=== PATIENT | male | born 1950 | race African-American/Black ===

== ENCOUNTER 2016-03-28 09:42 | Inpatient (IN) | payer MEDICARE, OTHER ==
[~2016-03-28] VITALS: Ht 182.9 cm; Wt 112.2 kg
[~2016-03-28 09:42] MED LIST: 1-ME1LIQ PO; APIX5 PO; ASPI81TA45 PO; CART240C4 PO; CYCL-36 PO; LOSA50TA PO
[2016-03-28 09:52] VITALS: BP 201/108; PULSE 105; RESP 20; TEMP 97.4; O2SAT 96
[2016-03-28 10:11] VITALS: BP 201/108; PULSE 114; RESP 22; O2SAT 96
[2016-03-28] MEDS ORDERED: LABETALOL HCL 100 MG/20 ML VIAL IV PUSH ONE (10:15)
--- NOTE | 2016-03-28 10:24 | PD ---
HPI Chief Complaint: Pain: Acute or Chronic Time Seen by Provider: 10:09 Travel History International Travel<30 days: No Contact w/Intl Traveler<30days: No Traveled to known affect area: No History of Present Illness HPI This patient has long-standing history of decades of chronic back pain. However he does typically ambulate well. He does not require assistive device. He was walking yesterday without difficulty. He woke up this morning and had extreme leg weakness. He tried to get out of bed and fell. Did not injure himself in the fall. He does not have head or neck pain. The weakness was not caused by the fall but was present when he awoke. He could not get his legs to work so he called paramedics who brought him in. He does not have any sensory loss or paresthesia. He denies urinary incontinence or retention. He has had 2 out of a planned series of 3 epidural injections by a doctor up in [place] who he cannot remember the name of. He has never had back surgery. He does not have a neurosurgeon. Denies fever. He does not take any blood thinners. He used to take them for his A. fib but no longer does. Symptoms severity is severe. Duration is 2 hours. No alleviating factors. Accu-Chek is normal. He did not take his blood pressure medication today PFSH Past Medical History Arthritis: No Asthma: No Atrial Fibrillation: Yes Autoimmune Disease: No Heart Rhythm Problems: Yes (AFIB) Cancer: No Cardiac Catheterization: No Cardiovascular Problems: Yes (A-FIB) High Cholesterol: Yes Chest Pain: No Congestive Heart Failure: No COPD: No Cerebrovascular Accident: No Diabetes: No Diminished Hearing: No Diverticulitis: Yes Endocrine: No Gastrointestinal Disorders: No Genitourinary: Yes Headaches: No Hypertension: Yes Immune Disorder: No Implanted Vascular Access Dvce: No Musculoskeletal: Yes (MULT FXS RLE / SPINAL STENOSIS) Neurologic: No Psychiatric: No Reproductive: No Respiratory: Yes (PE) Immunizations Current: No Migraines: No Seizures: No Sleep Apnea: No Thyroid Disease: No Influenza Vaccination: Yes PNEUMOCCOCAL Vaccine (Year): 2 Past Surgical History Abdominal Surgery: Yes (Appendectomy) Appendectomy: Yes Cardiac Surgery: No Coronary Artery Bypass Graft: No Ear Surgery: No Endocrine Surgery: No Eye Surgery: No Genitourinary Surgery: No Gynecologic Surgery: No Oral Surgery: No Thoracic Surgery: No Other Surgery: Yes (WOUND VAC-FOR SKIN REGENERATION) Family History Family Myocardial Infarction: Yes Social History Alcohol Use: Yes (6 PACK PER DAY) Tobacco Use: No Substance Use: No Allergies-Medications (Allergen,Severity, Reaction): Coded Allergies: Lactose (Verified Allergy, Severe, LACTOSE INTOLERANT, 03/28/16) Reported Meds & Prescriptions Reported Meds & Active Scripts Active Reported Omeprazole 40 Mg Cap 40 Mg PO DAILY Aspirin 81 (Aspirin) 81 Mg Tabdr 81 Mg PO DAILY Review of Systems General / Constitutional: No: Fever Eyes: No: Visual changes HENT: No: Headaches Cardiovascular: No: Chest Pain or Discomfort Respiratory: No: Shortness of Breath Gastrointestinal: No: Abdominal Pain Genitourinary: No: Dysuria Musculoskeletal: Positive: Weakness Skin: No Rash Neurologic: Positive: Weakness Psychiatric: Positive: Anxiety, No: Depression Endocrine: No: Polydipsia Hematologic/Lymphatic: No: Easy Bruising Physical Exam Narrative GENERAL: Well-nourished, well-developed patient with extreme anxiety and frustration over his severe leg weakness. SKIN: Warm and dry. HEAD: Atraumatic. Normocephalic. EYES: Pupils equal and round. No scleral icterus. No injection or drainage. ENT: No nasal bleeding or discharge. Mucous membranes pink and moist. NECK: Trachea midline. No JVD. CARDIOVASCULAR: Regular rate and rhythm. No murmur appreciated. RESPIRATORY: No accessory muscle use. Clear to auscultation. Breath sounds equal bilaterally. GASTROINTESTINAL: Abdomen soft, non-tender, nondistended. Hepatic and splenic margins not palpable. MUSCULOSKELETAL: No obvious deformities. No clubbing. No cyanosis. Has mild symmetric lower extremity edema which is chronic. No midline tenderness of the back. NEUROLOGICAL: Awake and alert. No obvious cranial nerve deficits. Motor exam reveals good strength of upper extremities. He can slowly wiggle his toes of both feet but very limited motor movements of the lower extremities. He cannot raise his legs off the bed. He cannot plantarflex or dorsiflex his feet. Normal speech. Sensation is intact to sharp and light touch throughout the lower extremities and is also normal in the sacral region PSYCHIATRIC: Very frustrated and anxious mood and affect; insight and judgment normal. Data Data Last Documented VS Vital Signs Date Time Temp Pulse Resp B/P Pulse Ox O2 Delivery O2 Flow Rate FiO2 03/28/16 12:41 82 12 176/85 96 Room Air 03/28/16 09:52 97.4 Orders Mri L Spine W/O Contrast (03/28/16 ) Mri T Spine W/O Contrast (03/28/16 ) Mri C Spine W/O Contrast (03/28/16 ) Iv Access Insert/Monitor (03/28/16 10:09) Complete Blood Count With Diff (03/28/16 10:09) Basic Metabolic Panel (Bmp) (03/28/16 10:09) Prothrombin Time / Inr (Pt) (03/28/16 10:09) Act Partial Throm Time (Ptt) (03/28/16 10:09) Labetalol Inj (Trandate Inj) (03/28/16 10:15) Lorazepam Inj (Ativan Inj) (03/28/16 11:15) Consult Neurosurgery (03/28/16 ) Pantoprazole (Protonix) (03/29/16 09:00) Enalaprilat Inj (Vasotec Inj) (03/28/16 15:15) Labs Laboratory Tests Test 03/28/16 10:20 White Blood Count 6.2 TH/MM3 Red Blood Count 4.83 MIL/MM3 Hemoglobin 15.8 GM/DL Hematocrit 45.1 % Mean Corpuscular Volume 93.4 FL Mean Corpuscular Hemoglobin 32.6 PG Mean Corpuscular Hemoglobin 34.9 % Concent Red Cell Distribution Width 13.2 % Platelet Count 176 TH/MM3 Mean Platelet Volume 7.8 FL Neutrophils (%) (Auto) 54.8 % Lymphocytes (%) (Auto) 34.7 % Monocytes (%) (Auto) 8.7 % Eosinophils (%) (Auto) 1.2 % Basophils (%) (Auto) 0.6 % Neutrophils # (Auto) 3.4 TH/MM3 Lymphocytes # (Auto) 2.1 TH/MM3 Monocytes # (Auto) 0.5 TH/MM3 Eosinophils # (Auto) 0.1 TH/MM3 Basophils # (Auto) 0.0 TH/MM3 CBC Comment DIFF FINAL Differential Comment Prothrombin Time 10.6 SEC Prothromb Time International 1.0 RATIO Ratio Activated Partial 24.8 SEC Thromboplast Time Sodium Level 139 MEQ/L Potassium Level 4.4 MEQ/L Chloride Level 106 MEQ/L Carbon Dioxide Level 26.1 MEQ/L Anion Gap 7 MEQ/L Blood Urea Nitrogen 19 MG/DL Creatinine 0.91 MG/DL Estimat Glomerular Filtration 101 ML/MIN Rate Random Glucose 88 MG/DL Calcium Level 8.9 MG/DL MDM Medical Decision Making Medical Screen Exam Complete: Yes Emergency Medical Condition: Yes Medical Record Reviewed: Yes Differential Diagnosis Disc herniation, spinal stenosis, cauda equina syndrome Narrative Course I have reviewed the patient's electronic medical record. The last entry was a lower extremity segmental Doppler done May 2015 which was normal. Reviewed his most recent history and physical. IV placed I gave him 10 mg IV labetalol for accelerated hypertension of 201/108 This patient arrives critically ill with essentially an acute bilateral leg paralysis. Does not seem consistent with stroke or Guillain-Andrade I'm not overly suspicious of an infectious cause without fever or physical findings I've ordered stat MRI of his spinal cord look for compression, mainly concerned thoracic and lumbar cord CBC is normal Metabolic profile is normal Coagulation studies are normal Extended cardiac monitoring reveals sinus rhythm between 100-110 MRI of the cervical cord shows some degenerative change without major cord compression MRI of thoracic cord shows a few degenerative change areas without major compression MRI of lumbar cord shows an area at L4/L5 with complete obliteration of the thecal sac and severe spinal stenosis I gave him 2 mg IV Ativan to sedate him for the MRI I reviewed the case in detail with neurosurgeon on-call. She recommended admission to the hospitalist service and she will be a documentum consultant and determine whether he would benefit from decompression surgery Patient is agreeable Critical Care Narrative Aggregate critical care time was 36 minutes. Time to perform other separately billable procedures was not included in the critical care time. My time did not include minutes spent treating any other patients simultaneously or on activities that did not directly contribute to the patient's treatment. The services I provided to this patient were to treat and/or prevent clinically significant deterioration that could result in: Permanent leg paralysis, cord compression I provided critical care services requiring my management, as noted below: Chart data review, documentation time, medication orders and management, vital sign assessments/reviewing monitor data, ordering and reviewing lab tests, ordering and interpreting/reviewing x-rays and diagnostic studies, care of the patient and discussion of the patient with the admitting physicians. Diagnosis Primary Impression: Paralysis of both lower limbs Additional Impression: Spinal stenosis at L4-L5 level Admitting Information Admitting Physician Requests: Admit Joesph Nguyen MD Mar 28, 2016 10:24
[2016-03-28 10:34] VITALS: BP 143/75; PULSE 105; RESP 22; O2SAT 97
[2016-03-28 10:40] LABS: AUTOMATED NEUTROPHIL # 3.4 TH/MM3 (1.8-7.7); BASOPHIL % 0.6 % (0.0-2.0); EOSINOPHIL # 0.1 TH/MM3 (0-0.4); EOSINOPHIL % 1.2 % (0.0-4.0); HEMATOCRIT 45.1 % (39.0-51.0); HEMO FLAGS DIFF FINAL; LYMPH % 34.7 % (9.0-44.0); LYMPHOCYTE # 2.1 TH/MM3 (1.0-4.8); MEAN CELL VOLUME 93.4 FL (80.0-100.0); MEAN CORPUSCULAR HEMOGLOBIN 32.6 PG (27.0-34.0); MEAN CORPUSCULAR HGB CONC 34.9 % (32.0-36.0); MONO % 8.7 % (0.0-8.0); NEUT % 54.8 % (16.0-70.0); PLATELET COUNT 176 TH/MM3 (150-450); RED BLOOD COUNT 4.83 MIL/MM3 (4.50-5.90); RED CELL DISTRIBUTION WIDTH 13.2 % (11.6-17.2); WHITE BLOOD COUNT 6.2 TH/MM3 (4.0-11.0)
[2016-03-28 10:48] LABS: APTT (PATIENT) 24.8 SEC (24.3-30.1); PROTHROMBIN TIME - PATIENT 10.6 SEC (9.8-11.6)
[2016-03-28 10:55] LABS: BICARBONATE 26.1 MEQ/L (21.0-32.0); POTASSIUM 4.4 MEQ/L (3.5-5.1)
[2016-03-28] MEDS ORDERED: LORazepam 2 MG/ML VIAL IV PUSH ONE (11:15)
--- NOTE | 2016-03-28 12:23 | RADRPT ---
EXAM DATE/TIME: 03/28/2016 11:16 [facility] COMPARISON: No previous studies available for comparison. INDICATIONS : Myelopathy. Mid-back pain. No known injury. MEDICAL HISTORY : Hypertension. SURGICAL HISTORY : Appendectomy. Nerve block two weeks ago. Right leg. ENCOUNTER: Subsequent ACUITY: 1 day PAIN SCORE: 5/10 LOCATION: Mid-back. TECHNIQUE: Multiplanar multisequence MRI of the thoracic spine was performed. FINDINGS: The sagittal T1, T2 and inversion recovery images show mild multi-level degenerative disc disease wit h multi-level marginal spurring predominantly in the mid and lower vertebral levels. Vertebral body heights are maintained without evidence of fracture or listhesis. There is a posterior component of the distant spurs from T6-7 through T10-11 which encroach on the anterior epidural space but do not a ppear to result in significant stenosis. Spinal canal is otherwise widely patent. Cord signal is no rmal throughout. Detailed axial images as follows: T1-T2: Normal. T2-T3: The thecal sac has a normal diameter. No evidence of disc bulge or protrusion. T3-T4: The thecal sac has a normal diameter. No evidence of disc bulge or protrusion. T4-T5: The thecal sac has a normal diameter. No evidence of disc bulge or protrusion. T5-T6: The thecal sac has a normal diameter. No evidence of disc bulge or protrusion. T6-T7: There is distant spur which encroaches on the anterior epidural space but the spinal canal is patent. T7-T8: Small disc but the spinal canal is patent. T8-T9: The thecal sac has a normal diameter. No evidence of disc bulge or protrusion. T9-T10: Small disc but the spinal canal and neural foramina are patent. T10-T11: Disc/spur. Spinal canal is patent. T11-T12: The thecal sac has a normal diameter. No evidence of disc bulge or protrusion. T12-L1: The thecal sac has a normal diameter. No evidence of disc bulge or protrusion. CONCLUSION: 1. Mild multi-level degenerative disc disease with predominantly anteriorly directed spurs in the mi d and lower dorsal levels. 2. There are posterior components from T6-7 through T7-8 and T9-10 through T10-11 which encroach on the anterior epidural space but does not result in significant stenosis. Spinal canal is adequate th roughout and cord signal is normal. Dale Simpson MD on March 28, 2016 at 11:50 Board Certified Radiologist. This report was verified electronically.
--- NOTE | 2016-03-28 12:29 | RADRPT ---
EXAM DATE/TIME: 03/28/2016 11:16 [facility] COMPARISON: No previous studies available for comparison. INDICATIONS: Myelopathy. Nerve block two weeks ago. MEDICAL HISTORY: Hypertension. SURGICAL HISTORY: Appendectomy. Right leg. ENCOUNTER: Subsequent ACUITY: 1 day PAIN SCORE: 5/10 LOCATION: Mid-back. TECHNIQUE: Multiplanar, multisequence MRI examination of the cervical spine was performed. FINDINGS: By MRI the marrow signal in the cervical vertebrae are normal. There is some very subtle increased s ignal in the cord at C3-4 and C5-6 associated with disc protrusions. C2-C3: The thecal sac has a normal configuration. There is no evidence of disc herniation or spinal canal s tenosis. The neural foramina are patent bilaterally. C3-C4: There is a central to slightly right-sided disc protrusion that is touching the cord. There is subtl e increased signal in the cord at this level. C4-C5: The thecal sac has a normal configuration. There is no evidence of disc herniation or spinal canal s tenosis. The neural foramina are patent bilaterally. C5-C6: Very mild uncinate ridging is present. There is some central bulging evident. The thecal sac is not e effaced. There is moderate right neural foramina encroachment. There is very subtle increased sig nal in the cord at this level. C6-C7: The thecal sac has a normal configuration. There is no evidence of disc herniation or spinal canal s tenosis. The neural foramina are patent bilaterally. C7-T1: The thecal sac has a normal configuration. There is no evidence of disc herniation or spinal canal s tenosis. The neural foramina are patent bilaterally. CONCLUSION: 1. Degenerative changes in the cervical spine. There is moderate disc protrusion at C3-C4 with subt le increased signal in the cord. There is a slightly smaller disc protrusion at C5-C6 again with mary carmen e subtle increased signal in the cord. 2. Controlled flexion extension films would be of benefit to ensure there is not ligamentous instabi lity. Jason Santiago MD FACR on March 28, 2016 at 12:08 Board Certified Radiologist. This report was verified electronically.
--- NOTE | 2016-03-28 12:36 | RADRPT ---
EXAM DATE/TIME: 03/28/2016 11:16 [facility] COMPARISON: No previous studies available for comparison. INDICATIONS: Myelopathy. Nerve block two weeks ago. MEDICAL HISTORY: Hypertension. SURGICAL HISTORY: Appendectomy. Right leg. ENCOUNTER: Subsequent ACUITY: 1 day PAIN SCORE: 0/10 LOCATION: Mid-back. TECHNIQUE: Multiplanar multisequence MRI of the lumbar spine was performed without contrast. FINDINGS: VERTEBRAE: By MRI the marrow signal in the lumbar vertebrae are homogeneous and normal. Conus is at L1. Patient has a congenitally small spinal canal. T12-L1: The thecal sac has a normal diameter. No evidence of disc bulge or protrusion. The neural foramina are patent bilaterally. L1-L2: There is mild disc bulging at L1-2 causing flattening of the anterior thecal sac with minimal left-si ded neural foramina encroachment with disc material. L2-L3: Minimal interspace ridging is present flattening the anterior thecal sac with bilateral neural forami na encroachment. Spinal stenosis is moderate. L3-L4: Congenitally small canal is present without significant stenosis. L4-L5: There is generalized disc bulging at L4-L5. Thecal sac has all but obliterated from disc bulging and ligamentous hypertrophy. There is bilateral neural foramina encroachment. L5-S1: Central disc bulging is evident. The neural foramina are adequate. Mild degenerative changes are pr esent in facet. SI joints are normal. 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 Jason Santiago MD FACR on March 28, 2016 at 12:10 Board Certified Radiologist. This report was verified electronically.
[2016-03-28 12:41] VITALS: BP 176/85; PULSE 82; RESP 12; O2SAT 96
[2016-03-28] MEDS ORDERED: ASPI-110 PO (14:20)
[2016-03-28] MEDS ORDERED: OMEP40CA2 PO (14:25)
[2016-03-28] MEDS ORDERED: SODIUM CHLORIDE 0.9% FLUSH 5 ML FLUSH FLUSH PRN (15:45)
[2016-03-28] MEDS ORDERED: ACETAMINOPHEN 325 MG TAB PO PRN (15:45)
[2016-03-28] MEDS ORDERED: NALOXONE HCL 0.4 MG/ML AMP IV PRN (15:45)
[2016-03-28] MEDS ORDERED: SENNOSIDES 8.6 MG TAB PO PRN (15:45)
[2016-03-28] MEDS ORDERED: ACETAMINOPHEN/HYDROcodone 325 MG/5 MG TAB PO PRN (15:45)
[2016-03-28] MEDS: DOCUSATE SODIUM 100 MG CAP PO SCH (16:00)
[2016-03-28] MEDS: HEPARIN SODIUM - SQ 10,000 UNITS/ML VIAL SQ SCH (16:01)
[2016-03-28] MEDS: HYDROmorphone HCL PF 1 MG/ML VIAL IV PRN ×2 (16:01→18:59)
[2016-03-28] MEDS: LISINOPRIL 20 MG TAB PO SCH (16:01)
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
--- NOTE | 2016-03-28 16:28 | RADRPT ---
EXAM DATE/TIME: 03/28/2016 16:09 [facility] COMPARISON: No previous studies available for comparison. INDICATIONS : Fall along with weakness. RADIATION DOSE: 41.86 CTDIvol (mGy) MEDICAL HISTORY : Cardiovascular disease. Hypertension. SURGICAL HISTORY : None. ENCOUNTER: Initial ACUITY: 1 day PAIN SCALE: 4/10 LOCATION: cranial TECHNIQUE: Multiple contiguous axial images were obtained of the head. Using automated exposure control and adj ustment of the mA and/or kV according to patient size, radiation dose was kept as low as reasonably a chievable to obtain optimal diagnostic quality images. FINDINGS: CEREBRUM: The ventricles are normal for age. No evidence of midline shift, mass lesion, hemorrhage or acute in farction. No extra-axial fluid collections are seen. POSTERIOR FOSSA: The cerebellum and brainstem are intact. The 4th ventricle is midline. The cerebellopontine angle i s unremarkable. EXTRACRANIAL: The visualized portion of the orbits is intact. SKULL: The calvaria is intact. No evidence of skull fracture. CONCLUSION: No acute intracranial process. Dale Simpson MD on March 28, 2016 at 16:21 Board Certified Radiologist. This report was verified electronically.
[2016-03-28] MEDS ORDERED: FLUMAZENIL 0.5 MG/5 ML VIAL IV PUSH PRN (16:30)
[2016-03-28] MEDS ORDERED: LORazepam 2 MG TAB PO PRN (16:30)
[2016-03-28] MEDS ORDERED: LORazepam 2 MG/ML VIAL IV PUSH PRN ×4 (16:30)
[2016-03-28] MEDS ORDERED: LORazepam 1 MG TAB PO PRN (16:30)
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
[2016-03-28 16:58] VITALS: BP 169/83; PULSE 83; RESP 16; O2SAT 96
[2016-03-28 18:01] LABS: AMPHETAMINE, URINE NEG (NEG); BARBITURATES, URINE NEG (NEG); COCAINE, URINE NEG (NEG)
[2016-03-28] MEDS: ACETAMINOPHEN/HYDROcodone 325 MG/10 MG TAB PO PRN ×2 (18:03→22:11)
[2016-03-28] MEDS: ONDANSETRON HCL 4 MG/2 ML VIAL IVP PRN ×2 (18:26→18:59)
[2016-03-28 21:07] VITALS: BP 136/78; PULSE 79; RESP 20; TEMP 98; O2SAT 98
[2016-03-28] MEDS: SODIUM CHLORIDE 0.9% FLUSH 5 ML FLUSH FLUSH SCH (21:38)
[2016-03-28] MEDS: GABAPENTIN 400 MG CAP PO SCH (21:38)
[2016-03-28] MEDS: ZOLPIDEM TARTRATE 5 MG TAB PO PRN (22:12)
[2016-03-28] MEDS ORDERED: METHOCARBAMOL 500 MG TAB PO ONE (22:45)
[2016-03-28 22:54] LABS: HEMOGLOBIN A1b 0.7 %; HEMOGLOBIN Ao 85.5 %; HEMOGLOBIN F 1.4 %; HEMOGLOBIN LA1C 1.9 %
[2016-03-29 00:31] VITALS: BP 145/68; PULSE 89; RESP 20; TEMP 97.3; O2SAT 98
[2016-03-29] MEDS: HEPARIN SODIUM - SQ 10,000 UNITS/ML VIAL SQ SCH ×3 (00:49→15:44)
[2016-03-29 04:00] VITALS: BP 136/81; PULSE 67; RESP 20; TEMP 96.8; O2SAT 99
[2016-03-29] MEDS: DOCUSATE SODIUM 100 MG CAP PO SCH ×2 (04:40→15:44)
[2016-03-29] MEDS: ACETAMINOPHEN/HYDROcodone 325 MG/10 MG TAB PO PRN ×4 (04:41→21:06)
[2016-03-29] MEDS: HYDROmorphone HCL PF 1 MG/ML VIAL IV PRN ×3 (05:29→12:05)
[2016-03-29 08:10] VITALS: BP 170/92; PULSE 75; RESP 20; TEMP 98.3; O2SAT 95
[2016-03-29] MEDS: GABAPENTIN 400 MG CAP PO SCH (08:16)
[2016-03-29] MEDS: PANTOPRAZOLE SOD 40 MG DELAYED RELEASE TAB PO SCH (08:17)
[2016-03-29] MEDS: SODIUM CHLORIDE 0.9% FLUSH 5 ML FLUSH FLUSH SCH ×2 (08:17→21:00)
[2016-03-29] MEDS: LISINOPRIL 20 MG TAB PO SCH (08:17)
[2016-03-29 12:09] VITALS: BP 168/87; PULSE 71; RESP 20; TEMP 97.9; O2SAT 96
--- NOTE | 2016-03-29 15:17 | HHI.PR ---
Subjective Remarks The patient said he had muscle pains in both of his thighs. He said he was still feeling very weak. He said he felt like his arms were okay. He said he had a steroid injection in his back for chronic pain 2 weeks ago and thinks this might be related. He said he was told a while ago that his spinal canal was tight. Objective Vitals Vital Signs Date Time Temp Pulse Resp B/P Pulse Ox O2 Delivery O2 Flow Rate FiO2 03/29/16 12:09 97.9 71 20 168/87 96 03/29/16 08:10 98.3 75 20 170/92 95 03/29/16 04:00 96.8 67 20 136/81 99 03/29/16 00:31 97.3 89 20 145/68 98 03/28/16 21:07 98.0 79 20 136/78 98 03/28/16 16:58 83 16 169/83 96 Room Air I/O 03/28/16 03/28/16 03/28/16 03/29/16 03/29/16 03/29/16 07:00 15:00 23:00 07:00 15:00 23:00 Intake Total 480 ml Output Total 350 ml 800 ml Balance -350 ml -800 ml 480 ml Intake Oral 480 ml Output Urine Total 350 ml 800 ml # Voids 1 0 2 # Bowel Movements 0 Result Diagram: 03/28/16 1020 03/28/16 1020 Imaging Last Impressions Thoracic Spine MRI 03/28/16 0000 Signed Impressions: Service Date/Time: Monday, March 28, 2016 11:16 - CONCLUSION: 1. Mild multi-level degenerative disc disease with predominantly anteriorly directed spurs in the mid and lower dorsal levels. 2. There are posterior components from T6-7 through T7-8 and T9-10 through T10-11 which encroach on the anterior epidural space but does not result in significant stenosis. Spinal canal is adequate throughout and cord signal is normal. Dale Simpson MD Lumbar Spine MRI 03/28/16 0000 Signed Impressions: Service Date/Time: Monday, March 28, 2016 11:16 - CONCLUSION: Congenitally small spinal canal with radiographically significant stenosis at L4-5. Jason Santiago MD FACR Head CT 03/28/16 0000 Signed Impressions: Service Date/Time: Monday, March 28, 2016 16:09 - CONCLUSION: No acute intracranial process. Dale Simpson MD Cervical Spine MRI 03/28/16 0000 Signed Impressions: Service Date/Time: Monday, March 28, 2016 11:16 - CONCLUSION: 1. Degenerative changes in the cervical spine. There is moderate disc protrusion at C3-C4 with subtle increased signal in the cord. There is a slightly smaller disc protrusion at C5-C6 again with some subtle increased signal in the cord. 2. Controlled flexion extension films would be of benefit to ensure there is not ligamentous instability. Jason Santiago MD FACR Objective Remarks GENERAL: This is a well-nourished, well-developed patient. SKIN: No rashes, ecchymoses or lesions. Cool and dry. HEAD: Atraumatic. Normocephalic. No temporal or scalp tenderness. EYES: Pupils equal round and reactive. Extraocular motions intact. No scleral icterus. No injection or drainage. ENT: Nose without bleeding. Throat without erythema. Uvula midline. Airway patent. NECK: Trachea midline. No JVD or lymphadenopathy. Supple, nontender, no meningeal signs. CARDIOVASCULAR: Regular rate and rhythm without murmurs, gallops, or rubs. RESPIRATORY: Clear to auscultation. Breath sounds equal bilaterally. No wheezes , rales, or rhonchi. GASTROINTESTINAL: Abdomen soft, non-tender, nondistended. No hepato-splenomegaly , or palpable masses. No guarding. MUSCULOSKELETAL: Extremities without clubbing, cyanosis, trace bilateral lower extremity edema. No calf tenderness. Negative Homans sign bilaterally. Bilateral lower extremity tender to touch. Mid lower back shoe cutter. NEUROLOGICAL: Right upper extremity 4 over 5 compared to left upper extremity 5 over 5. Bilateral lower extremity 3 over 5. Normal speech. PSYCH: Flattened affect. Medications and IVs Current Medications Medications (Trade) Dose Ordered Sig/Magaly Route Start Time Stop Time Status Last Admin (Protonix) 40 mg DAILY PO 03/29/16 09:00 03/29/16 08:17 (Vasotec Inj) 1.25 mg Q6H PRN IV PUSH 03/28/16 15:15 (Prinivil) 40 mg DAILY PO 03/28/16 16:00 03/29/16 08:17 (Norvasc) 10 mg DAILY PO 03/28/16 16:00 03/29/16 08:16 (NS Flush) 2 ml UNSCH PRN FLUSH 03/28/16 15:45 (NS Flush) 2 ml BID FLUSH 03/28/16 21:00 03/29/16 08:17 (Tylenol) 650 mg Q4H PRN PO 03/28/16 15:45 (Zofran Inj) 4 mg Q6H PRN IVP 03/28/16 15:45 03/28/16 18:59 (Colace) 100 mg Q12H PO 03/28/16 16:00 03/29/16 04:40 (Senokot) 17.2 mg Q12H PRN PO 03/28/16 15:45 (Ambien) 5 mg HS PRN PO 03/28/16 21:00 03/28/16 22:12 (Heparin Inj) 5,000 units Q8H SQ 03/28/16 16:00 03/29/16 08:15 (Christoval 5-325 Mg) 1 tab Q4H PRN PO 03/28/16 15:45 (Christoval 10-325 Mg) 1 tab Q4H PRN PO 03/28/16 15:45 03/29/16 10:30 (Dilaudid Pf Inj) 1 mg Q3H PRN IV 03/28/16 15:45 03/29/16 12:05 (Narcan Inj) 0.4 mg UNSCH PRN IV 03/28/16 15:45 (Romazicon Inj) 0.2 mg Q1M PRN IV PUSH 03/28/16 16:30 (Ativan) 1 mg Q4H PRN PO 03/28/16 16:30 (Ativan Inj) 1 mg Q4H PRN IV PUSH 03/28/16 16:30 (Ativan) 2 mg Q2H PRN PO 03/28/16 16:30 (Ativan Inj) 2 mg Q2H PRN IV PUSH 03/28/16 16:30 (Ativan Inj) 2 mg Q1H PRN IV PUSH 03/28/16 16:30 (Ativan Inj) 2 mg Q15M PRN IV PUSH 03/28/16 16:30 (Neurontin) 400 mg BID PO 03/28/16 21:00 03/29/16 08:16 A/P Problem List: (1) Spinal stenosis at L4-L5 level ICD Code: M48.06 Status: Acute (2) HTN (hypertension) ICD Code: I10 Status: Chronic Assessment and Plan Patient is a 65-year-old male with primary medical history of hypertension, chronic back pain who came in to the hospital status post fall today. He woke up trying to go to the bathroom and had slipped, he used a coffee table to help him get up. However, patient fell again and wasn't able to get up. Bilateral lower extremity weakness Spinal stenosis L4 to L5, history of chronic back pain, steroid injections lower back 2. Head CT negative. Cervical spine MRI showed: degenerative changes in the cervical spine; There is moderate disc protrusion at C3 to C4 with subtle increased signal in the cord; There is a slightly smaller disc protrusion at C5 to C6 again with some subtle increased signal in the cord. Lumbar spine MRI showed: congenitally small spinal canal with radiographically significant stenosis at L4 to L5. Thoracic spine MRI showed: mild multilevel degenerative disc disease with predominantly anteriorly directed spurs in the mid and lower torso levels; History of components from T6 - T7 through T7-8 and T9 - T10 through T10 -11 which encroach on the anterior epidural space but does not result in significant stenosis. - Neurosurgery consulted. Requested neurology consult. - Monitor risk for falls - Pain management with a bowel regimen. - PT/ OT. Alcohol abuse Drinks daily more than 3-4 beers. - CIWA protocol. - Monitor for withdrawals. HTN Blood pressure elevated 03/29. Exacerbated by pain. - lisinopril 40 mg daily, amlodipine 10 mg daily. - Vasotec when necessary. - pain control. DVT prop - SCDs Discharge Planning Awaiting clinical improvement. Bharat Bourne DO Mar 29, 2016 15:17
[2016-03-29 16:00] VITALS: BP 185/94; PULSE 71; RESP 20; TEMP 96.5; O2SAT 98
[2016-03-29] MEDS ORDERED: GADODIAMIDE PF 287 MG/ML 20 ML VIAL (for RAD MRI) IV ONE (17:17)
[2016-03-29] MEDS: methylPREDNISolone SO SUCC INJ 1,000 MG in DEXTROSE 5% IN WATER INJ 250 ML IV SCH ×2 (17:46)
[2016-03-29] MEDS: GABAPENTIN 300 MG CAP PO SCH (17:47)
--- NOTE | 2016-03-29 18:19 | RADRPT ---
EXAM DATE/TIME: 03/29/2016 16:50 [facility] COMPARISON: No previous studies available for comparison. INDICATIONS : Pain. CONTRAST: 20 cc Omniscan (gadodiamide) IV MEDICAL HISTORY : None. SURGICAL HISTORY : Appendectomy. ENCOUNTER: Subsequent ACUITY: 2 day PAIN SCORE: 0/10 LOCATION: [facility] TECHNIQUE: Multiplanar multisequence MRI of the thoracic spine was performed. FINDINGS: There is no fracture or spondylolisthesis. No abnormal enhancing lesions postcontrast. There is moderate degenerative disc disease at C6-7 and C7-8 with osteophytic ridging effacing the th ecal sac anteriorly around the cord without significant cord compression. No cord edema. CONCLUSION: 1. Moderate degenerative disc disease and osteophytes at C6-7-8 effacing the anterior thecal sac with out significant cord compression. No abnormal enhancing lesions fracture or spondylolisthesis. Quincy Botello MD on March 29, 2016 at 18:14 Board Certified Radiologist. This report was verified electronically.
--- NOTE | 2016-03-29 18:28 | RADRPT ---
EXAM DATE/TIME: 03/29/2016 16:50 [facility] COMPARISON: No previous studies available for comparison. INDICATIONS : Unsteady gait. CONTRAST: 20 cc Omniscan (gadodiamide) IV MEDICAL HISTORY : None. SURGICAL HISTORY : Appendectomy. ENCOUNTER: Subsequent ACUITY: 2 day PAIN SCORE: 0/10 LOCATION: cranial TECHNIQUE: Multiplanar, multisequence MRI of the brain was performed both prior to and following the administrat ion of paramagnetic contrast. FINDINGS: CEREBRUM: The ventricles are normal for age. No evidence of midline shift, mass lesion, hemorrhage or acute in farction. No extraaxial fluid collections are seen. The pituitary gland and suprasellar cistern are normal in configuration. WHITE MATTER: Mild signal abnormalities are seen in the white matter. POSTERIOR FOSSA: The cerebellum and brainstem are intact. The 4th ventricle is midline. The cerebellopontine angle is unremarkable. The cerebellar tonsils are normal in position. DIFFUSION IMAGING: No focal areas of restricted diffusion are seen. No evidence of acute infarction. EXTRACRANIAL: The visualized portions of the orbits and paranasal sinuses are unremarkable. POST-CONTRAST: No abnormal areas of parenchymal or dural enhancement. No evidence of blood-brain barrier breakdown. CONCLUSION: 1. Mild white matter signal abnormalities most characteristic of mild ischemic change. No recent infa rct. No acute findings. Quincy Botello MD on March 29, 2016 at 18:18 Board Certified Radiologist. This report was verified electronically.
--- NOTE | 2016-03-29 18:51 | MB ---
cc: RICHELLE LAMAR DATE OF CONSULTATION: 03/29/2016. HISTORY OF PRESENT ILLNESS: A 65-year-old right-handed man with a history of hypertension. Otherwise, he has been very healthy. He had low back pain for twenty years, worse in the last three months with pain that shoots down into the bilateral hips and lower extremities. He has had, he thinks, about eight injections in the last month or two. The last one was about a week and a half ago. It seemed to help the left hip pain somewhat. He has noticed some numbness in his toes for the last several months. No similar symptoms in his arms. Then yesterday he woke up in the morning in a chair and he slept in the chair all night. He got up, he fell to the ground when he got up and he was able to get up and walk okay and normal to the bathroom where he fell again and then he had difficulty getting up. He did have some urinary incontinence where he had wet himself but did not know it but otherwise his bowel and bladder have been working fine. No other numbness has been noted. SOCIAL HISTORY: Nonsmoker or drinker. He lives with his children. FAMILY HISTORY: Negative for cancer, seizure, stroke. REVIEW OF SYSTEMS: He denies any history of diabetes, hypercholesterolemia, myocardial infarction, stents, angioplasty, atrial fibrillation, coumadin, renal, hepatic, or pulmonary disease, thyroid disease, lupus, ulcer, cancer, seizure or stroke. MEDICATIONS: He has been on omeprazole, aspirin and some, I believe, Lortab at home. ALLERGIES: HE IS LACTOSE-INTOLERANT. PHYSICAL EXAMINATION: GENERAL: He is mildly obese. VITAL SIGNS: Afebrile, 71, 20, 168/87 to 170/92. NECK: There are no carotid bruits. HEART: Regular rhythm. I do not detect a murmur. NEUROLOGICAL EXAMINATION: Pupils are equal. Visual hoffman are full. Extraocular movements intact without nystagmus. Face is symmetric with normal sensation. Tongue was midline. There is no drift. He has normal strength in bilateral upper extremities except his FDI, I would say, is weak about a 4+ to 5-/5 bilaterally. ADM had a bit better strength at about a 5-/5 bilaterally. Best testing, even though he is in a lot of pain, bilateral iliopsoas, hamstrings, quadriceps, tibialis anterior, toe extensors, flexors, foot inversion and eversion all normal strength as did the gastrocnemius and the tibialis anterior. DTRs are 2+ on the right knee jerk, trace on the left, absent at the ankles. Trace in the upper extremities. Toes were downgoing bilaterally. There is no ankle clonus. Tone was normal throughout. Pin prick was intact in the toes and the bottoms of his feet, the upper feet, lower legs, thighs, penis, and midline of the abdomen and chest bilaterally. Also pin prick was intact in the face and the occiput bilaterally. Vibratory sense was intact in the lower extremities. Proprioception also intact to the toes. He is not ataxic on [id number]. He reports a lot of pain in the legs and low back and hips. LABORATORY DATA: CBC is normal. Urine drug screen is positive opiates only. Basic metabolic profile was normal. B12 and was normal. Hemoglobin A1c was normal. Glucose normal. Coags normal. IMAGING STUDIES: MRI of the cervical spine really looks normal. There is some mild disk bulge but nothing severe. No significant spinal stenosis. CT scan of the brain also normal. MRI of thoracic spine also normal. The cervical spine has some faint changes in the spinal cord behind C3-4 and C5; however, I think this is probably artifactual. MRI of the thoracic spine appears to have some hyperintensity behind T6. There is a slight disc bulge at 6-7. MRI of the lumbosacral spine I reviewed and there is some mild spinal stenosis at L4-5. IMPRESSION: I thought his neurological exam actually looks normal. There was no evidence for myelopathy. I am not sure what to make of this abnormality at T6. At this point, I think we will give him some high-dose IV steroids, check some blood work on him try him on some gabapentin. There was no evidence for myelopathy at this time. I am going to repeat his MRI of the thoracic spine with special attention to that region with and without contrast and also with the fall, will do an MRI of the brain at that time. MD SARAH Leslie/CHA /3:45 PM /6:32 PM
[2016-03-29] MEDS ORDERED: GABAPENTIN 300 MG CAP PO PRN (19:00)
[2016-03-29 20:44] VITALS: BP 185/92; PULSE 76; RESP 17; TEMP 98.6; O2SAT 95
[2016-03-29 21:18] LABS: FREE T4 1.12 NG/DL (0.76-1.46); TOTAL PROTEIN SPE 7.1 GM/DL (6.0-7.6)
[2016-03-30] VITALS (9 sets, daily range): BP systolic 108–218; BP diastolic 70–100; PULSE 66–114; RESP 17–20; TEMP 96.8–99.1; O2SAT 93–98
[2016-03-30] MEDS: HEPARIN SODIUM - SQ 10,000 UNITS/ML VIAL SQ SCH ×4 (00:18→23:14)
[2016-03-30] MEDS: ZOLPIDEM TARTRATE 5 MG TAB PO PRN ×2 (00:28→20:42)
[2016-03-30] MEDS: ENALAPRILAT 1.25 MG/ML VIAL IV PUSH PRN ×2 (00:29→05:42)
[2016-03-30] MEDS: DOCUSATE SODIUM 100 MG CAP PO SCH ×2 (04:00→16:14)
[2016-03-30] MEDS: ACETAMINOPHEN/HYDROcodone 325 MG/10 MG TAB PO PRN ×4 (05:42→20:43)
[2016-03-30] MEDS: GABAPENTIN 300 MG CAP PO SCH ×3 (08:10→17:02)
[2016-03-30] MEDS: PANTOPRAZOLE SOD 40 MG DELAYED RELEASE TAB PO SCH (08:10)
[2016-03-30] MEDS: LISINOPRIL 20 MG TAB PO SCH (08:10)
[2016-03-30] MEDS: SODIUM CHLORIDE 0.9% FLUSH 5 ML FLUSH FLUSH SCH ×2 (08:11→20:46)
--- NOTE | 2016-03-30 09:07 | HHI.PR ---
Objective Vital Signs Date Time Temp Pulse Resp B/P Pulse Ox O2 Delivery O2 Flow Rate FiO2 03/30/16 08:48 96.8 88 20 201/98 97 03/30/16 05:05 99.1 80 18 185/90 98 03/30/16 00:18 97.4 87 17 189/96 93 03/29/16 20:44 98.6 76 17 185/92 95 03/29/16 16:00 96.5 71 20 185/94 98 03/29/16 12:09 97.9 71 20 168/87 96 I/O 03/29/16 03/29/16 03/29/16 03/30/16 03/30/16 03/30/16 07:00 15:00 23:00 07:00 15:00 23:00 Intake Total 480 ml 120 ml 240 ml Output Total 800 ml 400 ml Balance -800 ml 480 ml 120 ml -160 ml Intake Oral 480 ml 120 ml 240 ml Output Urine Total 800 ml 400 ml # Voids 0 2 2 # Bowel Movements 0 Result Diagram: 03/28/16 1020 03/28/16 1020 Objective Remarks lesss pian moving legs by self off bed as i come into room ble Assessment and Plan Assessment and Plan imp pain much better inc neurontin oob mri braina nd repeat T spine neg no lesion T6 labs all ok so far esr cpk nl ? dc later today? PT Theo Abad MD Mar 30, 2016 09:07
[2016-03-30] MEDS: HYDROCHLOROTHIAZIDE 25 MG TAB PO SCH (10:05)
[2016-03-30] MEDS: cloNIDine HCL 0.2 MG TAB PO PRN (12:29)
[2016-03-30 12:44] LABS: RHEUMATOID FACTOR TRIGGER LESS THAN 10.0 IU/ML (0.0-14.9)
--- NOTE | 2016-03-30 14:55 | HHI.PR ---
Subjective Remarks The patient feels like he is getting stronger. He would like to go home instead of to rehabilitation. Discussed with nursing. Objective Vitals Vital Signs Date Time Temp Pulse Resp B/P Pulse Ox O2 Delivery O2 Flow Rate FiO2 03/30/16 13:06 97.4 114 20 195/100 95 03/30/16 11:58 191/90 03/30/16 09:43 107 218/99 03/30/16 08:48 96.8 88 20 201/98 97 03/30/16 05:05 99.1 80 18 185/90 98 03/30/16 00:18 97.4 87 17 189/96 93 03/29/16 20:44 98.6 76 17 185/92 95 03/29/16 16:00 96.5 71 20 185/94 98 I/O 03/29/16 03/29/16 03/29/16 03/30/16 03/30/16 03/30/16 07:00 15:00 23:00 07:00 15:00 23:00 Intake Total 480 ml 120 ml 240 ml Output Total 800 ml 400 ml Balance -800 ml 480 ml 120 ml -160 ml Intake Oral 480 ml 120 ml 240 ml Output Urine Total 800 ml 400 ml # Voids 0 2 2 # Bowel Movements 0 Result Diagram: 03/28/16 1020 03/28/16 1020 Imaging Last Impressions Thoracic Spine MRI 03/29/16 1550 Signed Impressions: Service Date/Time: Tuesday, March 29, 2016 16:50 - CONCLUSION: 1. Moderate degenerative disc disease and osteophytes at C6-7-8 effacing the anterior thecal sac without significant cord compression. No abnormal enhancing lesions fracture or spondylolisthesis. Quincy Botello MD Brain MRI 03/29/16 1550 Signed Impressions: Service Date/Time: Tuesday, March 29, 2016 16:50 - CONCLUSION: 1. Mild white matter signal abnormalities most characteristic of mild ischemic change. No recent infarct. No acute findings. Quincy Botello MD Lumbar Spine MRI 03/28/16 0000 Signed Impressions: Service Date/Time: Monday, March 28, 2016 11:16 - CONCLUSION: Congenitally small spinal canal with radiographically significant stenosis at L4-5. Jason Santiago MD FACR Head CT 03/28/16 0000 Signed Impressions: Service Date/Time: Monday, March 28, 2016 16:09 - CONCLUSION: No acute intracranial process. Dale Simpson MD Cervical Spine MRI 03/28/16 0000 Signed Impressions: Service Date/Time: Monday, March 28, 2016 11:16 - CONCLUSION: 1. Degenerative changes in the cervical spine. There is moderate disc protrusion at C3-C4 with subtle increased signal in the cord. There is a slightly smaller disc protrusion at C5-C6 again with some subtle increased signal in the cord. 2. Controlled flexion extension films would be of benefit to ensure there is not ligamentous instability. Jason Santiago MD FACR Objective Remarks GENERAL: This is a well-nourished, well-developed patient. SKIN: No rashes, ecchymoses or lesions. Cool and dry. HEAD: Atraumatic. Normocephalic. No temporal or scalp tenderness. EYES: Pupils equal round and reactive. Extraocular motions intact. No scleral icterus. No injection or drainage. ENT: Nose without bleeding. Throat without erythema. Uvula midline. Airway patent. NECK: Trachea midline. No JVD or lymphadenopathy. Supple, nontender, no meningeal signs. CARDIOVASCULAR: Regular rate and rhythm without murmurs, gallops, or rubs. RESPIRATORY: Clear to auscultation. Breath sounds equal bilaterally. No wheezes , rales, or rhonchi. GASTROINTESTINAL: Abdomen soft, non-tender, nondistended. No hepato-splenomegaly , or palpable masses. No guarding. MUSCULOSKELETAL: Extremities without clubbing, cyanosis, trace bilateral lower extremity edema. No calf tenderness. Negative Homans sign bilaterally. Bilateral lower extremity tender to touch. 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 NEUROLOGICAL: Upper extremities 5/5 strength, left lower extremity 3/5, right lower extremity 4/5. PSYCH: Slightly flattened affect. Medications and IVs Current Medications Medications (Trade) Dose Ordered Sig/Magaly Route Start Time Stop Time Status Last Admin (Protonix) 40 mg DAILY PO 03/29/16 09:00 03/30/16 08:10 (Vasotec Inj) 1.25 mg Q6H PRN IV PUSH 03/28/16 15:15 03/30/16 05:42 (Prinivil) 40 mg DAILY PO 03/28/16 16:00 03/30/16 08:10 (Norvasc) 10 mg DAILY PO 03/28/16 16:00 03/30/16 08:10 (NS Flush) 2 ml UNSCH PRN FLUSH 03/28/16 15:45 (NS Flush) 2 ml BID FLUSH 03/28/16 21:00 03/30/16 08:11 (Tylenol) 650 mg Q4H PRN PO 03/28/16 15:45 (Zofran Inj) 4 mg Q6H PRN IVP 03/28/16 15:45 03/28/16 18:59 (Colace) 100 mg Q12H PO 03/28/16 16:00 03/30/16 04:00 (Senokot) 17.2 mg Q12H PRN PO 03/28/16 15:45 (Ambien) 5 mg HS PRN PO 03/28/16 21:00 03/30/16 00:28 (Heparin Inj) 5,000 units Q8H SQ 03/28/16 16:00 03/30/16 08:11 ([place] 5-325 Mg) 1 tab Q4H PRN PO 03/28/16 15:45 ([place] 10-325 Mg) 1 tab Q4H PRN PO 03/28/16 15:45 03/30/16 10:11 (Dilaudid Pf Inj) 1 mg Q3H PRN IV 03/28/16 15:45 03/29/16 12:05 (Narcan Inj) 0.4 mg UNSCH PRN IV 03/28/16 15:45 (Romazicon Inj) 0.2 mg Q1M PRN IV PUSH 03/28/16 16:30 (Ativan) 1 mg Q4H PRN PO 03/28/16 16:30 (Ativan Inj) 1 mg Q4H PRN IV PUSH 03/28/16 16:30 (Ativan) 2 mg Q2H PRN PO 03/28/16 16:30 (Ativan Inj) 2 mg Q2H PRN IV PUSH 03/28/16 16:30 (Ativan Inj) 2 mg Q1H PRN IV PUSH 03/28/16 16:30 Lorazepam 2 mg 2 mg Q15M PRN IV PUSH 03/28/16 16:30 (SoluMEDROL INJ/ D5W Inj) 266 ml @ 266 mls/hr Q24H IV 03/29/16 17:00 03/29/16 17:46 (Neurontin) 900 mg TID PO 03/30/16 13:00 03/30/16 12:30 (Catapres) 0.2 mg Q6H PRN PO 03/30/16 10:00 03/30/16 12:29 (Hydrodiuril) 25 mg DAILY PO 03/30/16 10:00 03/30/16 10:05 A/P Problem List: (1) Spinal stenosis at L4-L5 level ICD Code: M48.06 Status: Acute (2) HTN (hypertension) ICD Code: I10 Status: Chronic Assessment and Plan Patient is a 65-year-old male with primary medical history of hypertension, chronic back pain who came in to the hospital status post fall today. He woke up trying to go to the bathroom and had slipped, he used a coffee table to help him get up. However, patient fell again and wasn't able to get up. Bilateral lower extremity weakness Spinal stenosis L4 to L5, history of chronic back pain, steroid injections lower back 2. Head CT negative. Cervical spine MRI showed: degenerative changes in the cervical spine; There is moderate disc protrusion at C3 to C4 with subtle increased signal in the cord; There is a slightly smaller disc protrusion at C5 to C6 again with some subtle increased signal in the cord. Lumbar spine MRI showed: congenitally small spinal canal with radiographically significant stenosis at L4 to L5. Thoracic spine MRI showed: mild multilevel degenerative disc disease with predominantly anteriorly directed spurs in the mid and lower torso levels; History of components from T6 - T7 through T7-8 and T9 - T10 through T10 -11 which encroach on the anterior epidural space but does not result in significant stenosis. - Neurosurgery consulted. Requested neurology consult. Labs pending. MRI brain unremarkable. - Monitor risk for falls. - Pain management with a bowel regimen. - PT/ OT. Rehab recommended. Pt has no insurance. Alcohol abuse Drinks daily more than 3-4 beers. - CIWA protocol. - Monitor for withdrawals. - start IV thiamine. - alcohol cessation instruction. Hypertensive emergency. Blood pressure markedly elevated 03/30. - lisinopril 40 mg daily, amlodipine 10 mg daily. Start HCTZ and adjust as needed. - Vasotec and clonidine when necessary. - pain control. DVT prop: Heparin. Discharge Planning Awaiting clinical improvement. Bharat Bourne DO Mar 30, 2016 14:55
[2016-03-30] MEDS: THIAMINE INJ 100 MG in SODIUM CHLORIDE 0.9% INJ 100 ML IV SCH (16:14)
[2016-03-30] MEDS: FOLIC ACID 1 MG TAB PO SCH (16:14)
[2016-03-30] MEDS: MULTIVITAMIN TAB PO SCH (16:14)
[2016-03-30] MEDS: methylPREDNISolone SO SUCC INJ 1,000 MG in DEXTROSE 5% IN WATER INJ 250 ML IV SCH ×2 (17:02)
[2016-03-31 05:00] VITALS: BP 176/92; PULSE 83; RESP 19; TEMP 96.1; O2SAT 96
[2016-03-31] MEDS: DOCUSATE SODIUM 100 MG CAP PO SCH ×2 (05:05→16:22)
[2016-03-31] MEDS: ACETAMINOPHEN/HYDROcodone 325 MG/10 MG TAB PO PRN ×5 (05:05→21:19)
[2016-03-31 08:49] VITALS: BP 165/85; PULSE 80; RESP 20; TEMP 97.2; O2SAT 97
--- NOTE | 2016-03-31 08:54 | HHI.PR ---
Objective Vital Signs Date Time Temp Pulse Resp B/P Pulse Ox O2 Delivery O2 Flow Rate FiO2 03/31/16 08:49 97.2 80 20 165/85 97 03/31/16 05:00 96.1 83 19 176/92 96 03/30/16 20:06 97.3 66 18 142/81 98 03/30/16 16:18 97.4 74 20 124/76 98 03/30/16 14:30 108/70 03/30/16 13:06 97.4 114 20 195/100 95 03/30/16 11:58 191/90 03/30/16 09:43 107 218/99 I/O 03/30/16 03/30/16 03/30/16 03/31/16 03/31/16 03/31/16 07:00 15:00 23:00 07:00 15:00 23:00 Intake Total 240 ml 480 ml 240 ml Output Total 400 ml 400 ml 700 ml Balance -160 ml 80 ml -460 ml Intake Oral 240 ml 480 ml 240 ml Output Urine Total 400 ml 400 ml 700 ml Result Diagram: 03/28/16 1020 03/28/16 1020 Objective Remarks less pain moving legs by self yest took own shower some left hip pain this am Assessment and Plan Assessment and Plan imp pain much better inc neurontin oob mri braina nd repeat T spine neg no lesion T6 labs all ok so far esr cpk nl check hip xray and if neg ok neurowise to Theo Cabral MD Mar 31, 2016 08:54
[2016-03-31] MEDS: LISINOPRIL 20 MG TAB PO SCH (08:56)
[2016-03-31] MEDS: HEPARIN SODIUM - SQ 10,000 UNITS/ML VIAL SQ SCH ×2 (08:56→16:22)
[2016-03-31] MEDS: THIAMINE INJ 100 MG in SODIUM CHLORIDE 0.9% INJ 100 ML IV SCH (08:56)
[2016-03-31] MEDS: SODIUM CHLORIDE 0.9% FLUSH 5 ML FLUSH FLUSH SCH ×2 (08:57→21:20)
[2016-03-31] MEDS: HYDROCHLOROTHIAZIDE 25 MG TAB PO SCH (08:57)
[2016-03-31] MEDS: PANTOPRAZOLE SOD 40 MG DELAYED RELEASE TAB PO SCH (08:57)
[2016-03-31] MEDS: FOLIC ACID 1 MG TAB PO SCH (08:57)
[2016-03-31] MEDS: MULTIVITAMIN TAB PO SCH (08:57)
[2016-03-31] MEDS: GABAPENTIN 300 MG CAP PO SCH ×3 (08:57→17:46)
--- NOTE | 2016-03-31 09:51 | RADRPT ---
EXAM DATE/TIME: 03/31/2016 09:38 [facility] COMPARISON: CHEST SINGLE AP, January 21, 2015, 8:17. INDICATIONS : Patient states left hip pain. MEDICAL HISTORY : None. SURGICAL HISTORY : None. ENCOUNTER: Initial ACUITY: 4 - 6 days PAIN SCORE: 8/10 LOCATION: Left Hip FINDINGS: The left femoral head is well situated within the acetabular fossa. No acute fracture is seen. There are mild degenerative changes. There are some well-corticated ossific density seen adjacent to the in ferior ischial ramus suggesting an old hamstring avulsion. CONCLUSION: 1. Mild degenerative changes within the left hip. 2. Small area of heterotopic bone adjacent to the ischial ramus suggesting old hamstring injury. Laith Santiago MD on March 31, 2016 at 9:48 Board Certified Radiologist. This report was verified electronically.
[2016-03-31] MEDS: HYDROmorphone HCL PF 1 MG/ML VIAL IV PRN ×2 (11:36→16:31)
[2016-03-31 11:59] VITALS: BP 151/72; PULSE 84; RESP 20; TEMP 96.9
[2016-03-31 12:37] LABS: BACTERIA, URINE OCC /hpf; BLOOD, URINE NEG (NEG); COMMENT (UR) CULT NOT INDICATED; CULTURE IF INDICATED CULT NOT INDICATED; GLUCOSE,URINE 300 mg/dL (NEG); KETONE, URINE NEG (NEG); MUCUS URINE FEW /lpf (OCC); NITRITE,URINE NEG (NEG); PH, URINE 5.5 (5.0-8.5); SQUAMOUS EPITHELIAL CELL URINE 3 /hpf (0-5); URINE COLOR YELLOW (YELLW/STRAW)
[2016-03-31 14:40] LABS: ANA SCREEN NEG (NEG); RAPID PLASMA REAGIN SCREEN NON-REACTIVE (NON-REACTVE)
--- NOTE | 2016-03-31 15:55 | HHI.PR ---
Subjective Remarks The patient feels a lot better this morning. He has been ambulating without a walker. He says his pain is well controlled. He would like to go home. Discussed with nursing. Objective Vitals Vital Signs Date Time Temp Pulse Resp B/P Pulse Ox O2 Delivery O2 Flow Rate FiO2 03/31/16 13:55 18 03/31/16 11:59 96.9 84 20 151/72 03/31/16 11:57 18 03/31/16 08:49 97.2 80 20 165/85 97 03/31/16 05:00 96.1 83 19 176/92 96 03/30/16 20:06 97.3 66 18 142/81 98 03/30/16 16:18 97.4 74 20 124/76 98 I/O 03/30/16 03/30/16 03/30/16 03/31/16 03/31/16 03/31/16 07:00 15:00 23:00 07:00 15:00 23:00 Intake Total 240 ml 480 ml 240 ml Output Total 400 ml 400 ml 700 ml Balance -160 ml 80 ml -460 ml Intake Oral 240 ml 480 ml 240 ml Output Urine Total 400 ml 400 ml 700 ml Result Diagram: 03/28/16 1020 03/28/16 1020 Imaging Last Impressions Hip and Pelvis X-Ray 03/31/16 0000 Signed Impressions: Service Date/Time: Thursday, March 31, 2016 09:38 - CONCLUSION: 1. Mild degenerative changes within the left hip. 2. Small area of heterotopic bone adjacent to the ischial ramus suggesting old hamstring injury. Laith Santiago MD Thoracic Spine MRI 03/29/16 1550 Signed Impressions: Service Date/Time: Tuesday, March 29, 2016 16:50 - CONCLUSION: 1. Moderate degenerative disc disease and osteophytes at C6-7-8 effacing the anterior thecal sac without significant cord compression. No abnormal enhancing lesions fracture or spondylolisthesis. Quincy Botello MD Brain MRI 03/29/16 1550 Signed Impressions: Service Date/Time: Tuesday, March 29, 2016 16:50 - CONCLUSION: 1. Mild white matter signal abnormalities most characteristic of mild ischemic change. No recent infarct. No acute findings. Quincy Botello MD Lumbar Spine MRI 03/28/16 0000 Signed Impressions: Service Date/Time: Monday, March 28, 2016 11:16 - CONCLUSION: Congenitally small spinal canal with radiographically significant stenosis at L4-5. Jason Santiago MD FACR Head CT 03/28/16 0000 Signed Impressions: Service Date/Time: Monday, March 28, 2016 16:09 - CONCLUSION: No acute intracranial process. Dale Simpson MD Cervical Spine MRI 03/28/16 0000 Signed Impressions: Service Date/Time: Monday, March 28, 2016 11:16 - CONCLUSION: 1. Degenerative changes in the cervical spine. There is moderate disc protrusion at C3-C4 with subtle increased signal in the cord. There is a slightly smaller disc protrusion at C5-C6 again with some subtle increased signal in the cord. 2. Controlled flexion extension films would be of benefit to ensure there is not ligamentous instability. Jason Santiago MD FACR Objective Remarks GENERAL: This is a well-nourished, well-developed patient. SKIN: No rashes, ecchymoses or lesions. Cool and dry. HEAD: Atraumatic. Normocephalic. No temporal or scalp tenderness. EYES: Pupils equal round and reactive. Extraocular motions intact. No scleral icterus. No injection or drainage. ENT: Nose without bleeding. Throat without erythema. Uvula midline. Airway patent. NECK: Trachea midline. No JVD or lymphadenopathy. Supple, nontender, no meningeal signs. CARDIOVASCULAR: Regular rate and rhythm without murmurs, gallops, or rubs. RESPIRATORY: Clear to auscultation. Breath sounds equal bilaterally. No wheezes , rales, or rhonchi. GASTROINTESTINAL: Abdomen soft, non-tender, nondistended. No hepato-splenomegaly , or palpable masses. No guarding. MUSCULOSKELETAL: Extremities without clubbing, cyanosis, trace bilateral lower extremity edema. No calf tenderness. Negative Homans sign bilaterally. NEUROLOGICAL: Patient ambulating well. Upper extremity strength symmetrical. Normal speech. PSYCH: Slightly flattened affect. Medications and IVs Current Medications Medications (Trade) Dose Ordered Sig/Magaly Route Start Time Stop Time Status Last Admin (Protonix) 40 mg DAILY PO 03/29/16 09:00 03/31/16 08:57 (Vasotec Inj) 1.25 mg Q6H PRN IV PUSH 03/28/16 15:15 03/30/16 05:42 (Prinivil) 40 mg DAILY PO 03/28/16 16:00 03/31/16 08:56 (Norvasc) 10 mg DAILY PO 03/28/16 16:00 03/31/16 08:54 (NS Flush) 2 ml UNSCH PRN FLUSH 03/28/16 15:45 (NS Flush) 2 ml BID FLUSH 03/28/16 21:00 03/31/16 08:57 (Tylenol) 650 mg Q4H PRN PO 03/28/16 15:45 (Zofran Inj) 4 mg Q6H PRN IVP 03/28/16 15:45 03/28/16 18:59 (Colace) 100 mg Q12H PO 03/28/16 16:00 03/31/16 05:05 (Senokot) 17.2 mg Q12H PRN PO 03/28/16 15:45 (Ambien) 5 mg HS PRN PO 03/28/16 21:00 03/30/16 20:42 (Heparin Inj) 5,000 units Q8H SQ 03/28/16 16:00 03/31/16 08:56 ([place] 5-325 Mg) 1 tab Q4H PRN PO 03/28/16 15:45 ([place] 10-325 Mg) 1 tab Q4H PRN PO 03/28/16 15:45 03/31/16 13:21 (Dilaudid Pf Inj) 1 mg Q3H PRN IV 03/28/16 15:45 03/31/16 11:36 (Narcan Inj) 0.4 mg UNSCH PRN IV 03/28/16 15:45 (Romazicon Inj) 0.2 mg Q1M PRN IV PUSH 03/28/16 16:30 (Ativan) 1 mg Q4H PRN PO 03/28/16 16:30 (Ativan Inj) 1 mg Q4H PRN IV PUSH 03/28/16 16:30 (Ativan) 2 mg Q2H PRN PO 03/28/16 16:30 (Ativan Inj) 2 mg Q2H PRN IV PUSH 03/28/16 16:30 (Ativan Inj) 2 mg Q1H PRN IV PUSH 03/28/16 16:30 Lorazepam 2 mg 2 mg Q15M PRN IV PUSH 03/28/16 16:30 (SoluMEDROL INJ/ D5W Inj) 266 ml @ 266 mls/hr Q24H IV 03/29/16 17:00 03/30/16 17:02 (Neurontin) 900 mg TID PO 03/30/16 13:00 03/31/16 13:21 (Catapres) 0.2 mg Q6H PRN PO 03/30/16 10:00 03/30/16 12:29 Hydrochlorothiazide 25 mg 25 mg DAILY PO 03/30/16 10:00 03/31/16 08:57 (Thiamine Inj/NS Inj) 101 ml @ 101 mls/hr DAILY IV 03/30/16 16:00 03/31/16 08:56 (Folate) 1 mg DAILY PO 03/30/16 14:45 03/31/16 08:57 (Theragran) 1 tab DAILY PO 03/30/16 14:45 03/31/16 08:57 A/P Problem List: (1) Spinal stenosis at L4-L5 level ICD Code: M48.06 Status: Acute (2) HTN (hypertension) ICD Code: I10 Status: Chronic Assessment and Plan Patient is a 65-year-old male with primary medical history of hypertension, chronic back pain who came in to the hospital status post fall today. He woke up trying to go to the bathroom and had slipped, he used a coffee table to help him get up. However, patient fell again and wasn't able to get up. Bilateral lower extremity weakness Spinal stenosis L4 to L5, history of chronic back pain, steroid injections lower back 2. Head CT negative. Cervical spine MRI showed: degenerative changes in the cervical spine; There is moderate disc protrusion at C3 to C4 with subtle increased signal in the cord; There is a slightly smaller disc protrusion at C5 to C6 again with some subtle increased signal in the cord. Lumbar spine MRI showed: congenitally small spinal canal with radiographically significant stenosis at L4 to L5. Thoracic spine MRI showed: mild multilevel degenerative disc disease with predominantly anteriorly directed spurs in the mid and lower torso levels; History of components from T6 - T7 through T7-8 and T9 - T10 through T10 -11 which encroach on the anterior epidural space but does not result in significant stenosis. Strength continues to improve. - Neurosurgery consulted. Requested neurology consult. MRI brain unremarkable. Continue high-dose steroids per neurology. - Pain management with a bowel regimen. - PT/ OT. Rehab recommended. Pt has no insurance. Anticipate discharge home in 1-2 days. - Continue gabapentin. Alcohol abuse Drinks daily more than 3-4 beers. - CIWA protocol. - Monitor for withdrawals. - started IV thiamine. - alcohol cessation instruction. Hypertensive emergency. Blood pressure markedly elevated 03/30. Currently improved. - lisinopril 40 mg daily, amlodipine 10 mg daily. Start HCTZ and adjust as needed. Increase to 50 mg by mouth daily 03/31. - Vasotec and clonidine when necessary. - pain control. DVT prop: Heparin. Discharge Planning Anticipate discharge home in 1-2 days. Bharat Bourne DO Mar 31, 2016 15:55
[2016-03-31] MEDS ORDERED: HYDROCHLOROTHIAZIDE 25 MG TAB PO ONE (16:00)
[2016-03-31] MEDS: methylPREDNISolone SO SUCC INJ 1,000 MG in DEXTROSE 5% IN WATER INJ 250 ML IV SCH ×2 (16:22)
[2016-03-31 16:23] VITALS: BP 163/101; PULSE 70; RESP 20; TEMP 96.9; O2SAT 98
[2016-03-31 20:59] VITALS: BP 137/81; PULSE 72; RESP 20; TEMP 97.3; O2SAT 98
[2016-03-31] MEDS: ZOLPIDEM TARTRATE 5 MG TAB PO PRN (21:19)
[2016-03-31 22:39] LABS: ALBUMIN SPE 4.2 GM/DL (3.50-5.00); ALPHA 1 GLOBULIN 0.22 GM/DL (0.11-0.29); ALPHA 2 GLOBULIN 0.82 GM/DL (0.22-1.00); BETA GLOBULINS (SPE) 0.83 GM/DL (0.53-1.03)
[2016-04-01] MEDS: HEPARIN SODIUM - SQ 10,000 UNITS/ML VIAL SQ SCH ×2 (00:01→07:55)
[2016-04-01] MEDS: HYDROmorphone HCL PF 1 MG/ML VIAL IV PRN ×2 (00:04→05:43)
[2016-04-01 00:19] VITALS: BP 137/87; PULSE 78; RESP 20; TEMP 96.4; O2SAT 97
[2016-04-01] MEDS: DOCUSATE SODIUM 100 MG CAP PO SCH (03:53)
[2016-04-01] MEDS: ACETAMINOPHEN/HYDROcodone 325 MG/10 MG TAB PO PRN ×2 (03:53→07:54)
[2016-04-01] MEDS: cloNIDine HCL 0.2 MG TAB PO PRN (03:53)
[2016-04-01 04:40] VITALS: BP 169/100; PULSE 86; RESP 18; TEMP 96.7; O2SAT 98
[2016-04-01 05:02] VITALS: BP 150/87; PULSE 77
[2016-04-01] MEDS: GABAPENTIN 300 MG CAP PO SCH (07:53)
[2016-04-01] MEDS: MULTIVITAMIN TAB PO SCH (07:54)
[2016-04-01] MEDS: FOLIC ACID 1 MG TAB PO SCH (07:55)
[2016-04-01] MEDS: THIAMINE INJ 100 MG in SODIUM CHLORIDE 0.9% INJ 100 ML IV SCH (07:55)
[2016-04-01] MEDS: LISINOPRIL 20 MG TAB PO SCH (07:55)
[2016-04-01] MEDS: PANTOPRAZOLE SOD 40 MG DELAYED RELEASE TAB PO SCH (07:55)
[2016-04-01] MEDS: SODIUM CHLORIDE 0.9% FLUSH 5 ML FLUSH FLUSH SCH (07:56)
[2016-04-01 08:17] VITALS: BP 130/75; PULSE 66; RESP 20; TEMP 96.2; O2SAT 98
[2016-04-01 08:59] VITALS: RESP 20
[2016-04-01] MEDS ORDERED: HYDROCHLOROTHIAZIDE 25 MG TAB PO SCH (09:00)
[2016-04-01 09:11] LABS: BICARBONATE 31.2 MEQ/L (21.0-32.0); MAGNESIUM 2.5 MG/DL (1.5-2.5); POTASSIUM 3.9 MEQ/L (3.5-5.1)
[2016-04-01] MEDS ORDERED: HYDR-3516 PO (10:57)
[2016-04-01] MEDS ORDERED: HYDR25TA5 PO (10:57)
[2016-04-01] MEDS ORDERED: LISI-515 PO (10:57)
[2016-04-01] MEDS ORDERED: AMLO10 PO (10:57)
[2016-04-01] MEDS ORDERED: NEUR300C PO (10:57)
--- NOTE | 2016-04-01 11:00 | HHI.DCPOC ---
Discharge Care Plan Diagnosis: (1) Neuropathy (2) Spinal stenosis at L4-L5 level (3) HTN (hypertension) Goals to Promote Your Health * To prevent worsening of your condition and complications * To maintain your health at the optimal level Directions to Meet Your Goals Take your medications as prescribed Follow your dietary instruction Follow activity as directed Keep your appointments as scheduled Take your immunizations and boosters as scheduled If your symptoms worsen call your PCP, if no PCP go to Urgent Care Center or Emergency Room Smoking is Dangerous to Your Health. Avoid second hand smoke Call the 24-hour hour crisis hotline for domestic abuse at Bharat Bourne DO Apr 01, 2016 11:00
--- NOTE | 2016-04-01 11:06 | HHI.DS ---
Discharge Summary Admission Date Mar 28, 2016 at 15:21 Discharge Date: Apr 01, 2016 Admitting Diagnosis bilateral leg weakness with severe spinal stenosis (1) Spinal stenosis at L4-L5 level ICD Code: M48.06 Diagnosis: Principal (2) HTN (hypertension) ICD Code: I10 Diagnosis: Principal (3) Neuropathy ICD Code: G62.9 Procedures None. Brief History - From Admission Patient is a 65-year-old male with primary medical history of hypertension, chronic back pain who came in to the hospital status post fall today. Mother of patient's children at the bedside. States he woke up this morning trying to go to the bathroom and had slipped, he used a coffee table to help him get up. However, patient fell again and wasn't able to get up. Part of the history was taken from mother patient's children secondary to patient slightly sedated from anxiolytics given for MRI. States she was called by their oldest son that his father is unable to get up from falling, that they called EMS. Reports patient hit his head on the table. Patient denies any head pain but complains of some neck pain. Mother patient's children reported lose some of his teeth, but patient says that he lost teeth a while back about 15 of them not during this incident. Patient was ambulatory yesterday and does not require any assistive device. This is not the first time that the patient had fallen. He had fallen in the past year. Patient states that he could not put any pressure on his feet. He denies any bowel or bladder incontinence post fall. Denies any sensory loss or paresthesia. States that he has chronic back pain lower part sides. He is being seen for steroid injection x2. States also that he has been exercising 2- 3 times a week but wasn't able to do it yesterday. Mother patient's children reported that patient has been complaining of bilateral knee swelling and leg swelling. Denies any back surgeries. Denies fevers, chills, cough, congestion. Denies chest pain, palpitations, headache, lightheadedness. Denies SOB/dyspnea. Denies nausea, vomiting, diarrhea. Cervical spine MRI showed degenerative changes in the cervical spine. There is moderate disc protrusion at C3 to C4 with subtle increased signal in the cord. There is a slightly smaller disc protrusion at C5 to C6 again with some subtle increased signal in the cord. Controlled flexion-extension films with be of benefit to ensure there is not ligamentous instability. Lumbar spine MRI showed congenitally small spinal canal with radiographically significant stenosis at L4 to L5. Thoracic spine MRI showed mild multilevel degenerative disc disease with predominantly anteriorly directed spurs in the mid and lower torso levels. History of components from T6 - T7 through T7-8 and T9 - T10 through T10 -11 which encroach on the anterior epidural space but does not result in significant stenosis. Spinal canal is adequate throughout and cord signal is normal. CBC/BMP: 03/28/16 1020 04/01/16 0712 Significant Findings Laboratory Tests Test 03/31/16 04/01/16 11:35 07:12 Urine Glucose (UA) 300 mg/dL (NEG) Urine Leukocyte Esterase SMALL (NEG) Urine Bacteria OCC /hpf (NONE) Urine Mucus FEW /lpf (OCC) Chloride Level 97 MEQ/L (98-107) Blood Urea Nitrogen 20 MG/DL (7-18) Estimat Glomerular Filtration 76 ML/MIN (>89) Rate Random Glucose 163 MG/DL (74-106) Imaging Last Impressions Hip and Pelvis X-Ray 03/31/16 0000 Signed Impressions: Service Date/Time: Thursday, March 31, 2016 09:38 - CONCLUSION: 1. Mild degenerative changes within the left hip. 2. Small area of heterotopic bone adjacent to the ischial ramus suggesting old hamstring injury. Laith Santiago MD Thoracic Spine MRI 03/29/16 1550 Signed Impressions: Service Date/Time: Tuesday, March 29, 2016 16:50 - CONCLUSION: 1. Moderate degenerative disc disease and osteophytes at C6-7-8 effacing the anterior thecal sac without significant cord compression. No abnormal enhancing lesions fracture or spondylolisthesis. Quincy Botello MD Brain MRI 03/29/16 1550 Signed Impressions: Service Date/Time: Tuesday, March 29, 2016 16:50 - CONCLUSION: 1. Mild white matter signal abnormalities most characteristic of mild ischemic change. No recent infarct. No acute findings. Quincy Botello MD Lumbar Spine MRI 03/28/16 Signed Impressions: Service Date/Time: Monday, March 28, 2016 11:16 - CONCLUSION: Congenitally small spinal canal with radiographically significant stenosis at L4-5. Jason Santiago MD FACR Head CT 03/28/16 Signed Impressions: Service Date/Time: Monday, March 28, 2016 16:09 - CONCLUSION: No acute intracranial process. Dale Simpson MD Cervical Spine MRI 03/28/16 Signed Impressions: Service Date/Time: Monday, March 28, 2016 11:16 - CONCLUSION: 1. Degenerative changes in the cervical spine. There is moderate disc protrusion at C3-C4 with subtle increased signal in the cord. There is a slightly smaller disc protrusion at C5-C6 again with some subtle increased signal in the cord. 2. Controlled flexion extension films would be of benefit to ensure there is not ligamentous instability. Jason Santiago MD FACR PE at Discharge GENERAL: This is a well-nourished, well-developed patient. SKIN: No rashes, ecchymoses or lesions. Cool and dry. HEAD: Atraumatic. Normocephalic. No temporal or scalp tenderness. EYES: Pupils equal round and reactive. Extraocular motions intact. No scleral icterus. No injection or drainage. ENT: Nose without bleeding. Throat without erythema. Uvula midline. Airway patent. NECK: Trachea midline. No JVD or lymphadenopathy. Supple, nontender, no meningeal signs. CARDIOVASCULAR: Regular rate and rhythm without murmurs, gallops, or rubs. RESPIRATORY: Clear to auscultation. Breath sounds equal bilaterally. No wheezes , rales, or rhonchi. GASTROINTESTINAL: Abdomen soft, non-tender, nondistended. No hepato-splenomegaly , or palpable masses. No guarding. MUSCULOSKELETAL: Extremities without clubbing, cyanosis, trace bilateral lower extremity edema. No calf tenderness. Negative Homans sign bilaterally. NEUROLOGICAL: Patient ambulating well. Upper extremity strength symmetrical. Normal speech. PSYCH: Slightly flattened affect. Pt update on day of discharge The patient said he ambulated and did 4 laps around the halls. He said he feels ready to go to work on Thursday. He was wondering if he can get prescriptions. Discussed with nursing. Hospital Course Bilateral lower extremity weakness Spinal stenosis L4 to L5, history of chronic back pain, steroid injections lower back 2. Head CT negative. Cervical spine MRI showed: degenerative changes in the cervical spine; There is moderate disc protrusion at C3 to C4 with subtle increased signal in the cord; There is a slightly smaller disc protrusion at C5 to C6 again with some subtle increased signal in the cord. Lumbar spine MRI showed: congenitally small spinal canal with radiographically significant stenosis at L4 to L5. Thoracic spine MRI showed: mild multilevel degenerative disc disease with predominantly anteriorly directed spurs in the mid and lower torso levels; History of components from T6 - T7 through T7-8 and T9 - T10 through T10 -11 which encroach on the anterior epidural space but does not result in significant stenosis. Neurosurgery was consulted. Neurology was also consulted. MRI brain unremarkable. He was started on high-dose steroids per neurology. He received pain management with a bowel regimen. He worked with PT/ OT. He was continued on gabapentin. His strength continued to improve and he was ambulating well without a walker. He will follow up with neurology and neurosurgery as an outpatient. Hypertensive emergency. Blood pressure was markedly elevated. He was started on lisinopril 40 mg daily , amlodipine 10 mg daily and HCTZ 50 mg daily. He received Vasotec and clonidine when necessary. Blood pressure much improved on current regimen. He will follow-up with his primary care doctor. Alcohol abuse Drinks daily more than 3-4 beers. Alcohol cessation instruction was given. He was placed on CIWA protocol. He received IV thiamine. Pt Condition on Discharge: Stable Discharge Disposition: Discharge Home Discharge Time: > 30 minutes Discharge Instructions DIET: Follow Instructions for: Heart Healthy Diet Activities you can perform: Weight Bearing as Constance Follow up Referrals: Neurology - 1 Week with Theo Abad MD Neurosurgery - 2 Weeks with Flavio Zhao PCP Follow-up - 1 Week New Medications: Amlodipine (Norvasc) 10 Mg Tab 10 MG PO DAILY Blood Pressure Management #30 TAB Gabapentin (Neurontin) 300 Mg Cap 600 MG PO TID Lower extremity pain #90 CAP Hydrochlorothiazide (Hydrochlorothiazide) 25 Mg Tab 50 MG PO DAILY Blood Pressure Management #60 TAB Hydrocodone-Acetaminophen (Hydrocodone-Acetaminophen) 5-325 mg Tab 1 TAB PO Q4H PRN pain #14 TAB Lisinopril (Lisinopril) 20 Mg Tab 40 MG PO DAILY Blood Pressure Management #30 TAB Continued Medications: Aspirin DR (Aspirin 81) 81 Mg Tabdr 81 MG PO DAILY Ref 0 TAB Omeprazole (Omeprazole) 40 Mg Cap 40 MG PO DAILY #30 Ref 0 CAP Bharat Bourne DO Apr 01, 2016 11:06
[2016-04-03 15:55] LABS: VITAMIN B6 15.5 ng/mL (2.1-21.7)
== END 2016-04-01 13:21 | disposition home or self-care (01) | DRG 552 ==
LOC: NEPE 09:42 → NEDA 15:21 → N05B 18:57
PROVIDERS: ADMIT Hospitalist; ATTEND Hospitalist
DX: M48.06 Spinal stenosis, lumbar region (principal); G82.20 Paraplegia, unspecified; I48.91 Unspecified atrial fibrillation; I16.1 Hypertensive emergency; G62.9 Polyneuropathy, unspecified; F10.10 Alcohol abuse, uncomplicated; E78.00 Pure hypercholesterolemia, unspecified; I10 Essential (primary) hypertension; G89.29 Other chronic pain; Z91.81 History of falling; M47.9 Spondylosis, unspecified; M51.34 Other intervertebral disc degeneration, thoracic region; M51.36 Other intervertebral disc degeneration, lumbar region; W06.XXXA Fall from bed, initial encounter
CPT/HCPCS: 70450; 70553; 72141; 72146; 72148; 72157; 73502; 80048; 80307; 81001; 82550; 82607; 82746; 83036; 83735; 83921; 84165; 84207; 84425; 84439; 84443; 85025; 85610; 85652; 85730; 86038; 86430; 86592; 96374; 96375; A9579; J1170; J1644; J2060; J2405; J2930; J3411; J7060

== ENCOUNTER 2017-02-02 21:13 | Emergency (ER) | payer OTHER, MEDICAID ==
[~2017-02-02] VITALS: Ht 182.9 cm; Wt 118.0 kg
[~2017-02-02 21:13] MED LIST changes: -1-ME1LIQ PO; +AMLO10 PO; -APIX5 PO; +ASPI1TAB57 PO; -ASPI81TA45 PO; -CART240C4 PO; -CYCL-36 PO; +HYDR-3516 PO; +HYDR25TA5 PO; +LISI-515 PO; -LOSA50TA PO; +NEUR300C PO; +OMEP40CA2 PO
[2017-02-02 21:17] VITALS: BP 177/109; PULSE 82; RESP 16; TEMP 98.1; O2SAT 97
[2017-02-03] MEDS ORDERED: DEXAMETHASONE SOD PHOS 20 MG/5 ML VIAL IV PUSH ONE (00:30)
[2017-02-03] MEDS ORDERED: FAMOTIDINE 20 MG/2 ML VIAL IV PUSH ONE (00:30)
[2017-02-03] MEDS ORDERED: diphenhydrAMINE HCL 50 MG/ML VIAL IV PUSH ONE (00:30)
--- NOTE | 2017-02-03 00:37 | PD ---
HPI Chief Complaint: Allergic/Adverse Reaction Time Seen by Provider: 00:25 Travel History International Travel<30 days: No Contact w/Intl Traveler<30days: No Traveled to known affect area: No History of Present Illness HPI 66-year-old black male presents to emergency department comely by his for evaluation of lip swelling. Patient states that he was in his normal state of health yesterday. He woke today with swelling of his upper and lower lip. He has had problems of this nature in the past with mangoes and shrimp although he has not had any recently. He takes lisinopril for hypertension. He's had some mild itching in his feet but no rash. No glossal edema. No difficulty swallowing. No shortness of breath or wheezing. No identifiable cause otherwise. He has not been sick recently. PFSH Past Medical History Arthritis: No Asthma: No Atrial Fibrillation: Yes Autoimmune Disease: No Heart Rhythm Problems: Yes (AFIB) Cancer: No Cardiac Catheterization: No Cardiovascular Problems: Yes (A-FIB) High Cholesterol: Yes Chest Pain: No Congestive Heart Failure: No COPD: No Cerebrovascular Accident: No Diabetes: No Diminished Hearing: No Diverticulitis: Yes Endocrine: No Gastrointestinal Disorders: No Genitourinary: Yes Headaches: No Hypertension: Yes Immune Disorder: No Implanted Vascular Access Dvce: No Musculoskeletal: Yes (MULT FXS RLE / SPINAL STENOSIS) Neurologic: No Psychiatric: No Reproductive: No Respiratory: Yes (PE) Immunizations Current: No Migraines: No Seizures: No Sleep Apnea: No Thyroid Disease: No PNEUMOCCOCAL Vaccine (Year): 2 Past Surgical History Abdominal Surgery: Yes (Appendectomy) Appendectomy: Yes Cardiac Surgery: No Coronary Artery Bypass Graft: No Ear Surgery: No Endocrine Surgery: No Eye Surgery: No Genitourinary Surgery: No Gynecologic Surgery: No Oral Surgery: No Thoracic Surgery: No Other Surgery: Yes (WOUND VAC-FOR SKIN REGENERATION) Social History Alcohol Use: Yes (6 PACK PER DAY) Tobacco Use: No Substance Use: No Allergies-Medications (Allergen,Severity, Reaction): Coded Allergies: lactose (Unverified Allergy, Severe, LACTOSE INTOLERANT, 02/03/17) Reported Meds & Prescriptions Reported Meds & Active Scripts Active Lisinopril 20 Mg Tab 40 Mg PO DAILY Hydrocodone-Acetaminophen 5-325 mg Tab 1 Tab PO Q4H PRN Hydrochlorothiazide 25 Mg Tab 50 Mg PO DAILY Neurontin (Gabapentin) 300 Mg Cap 600 Mg PO TID Norvasc (Amlodipine Besylate) 10 Mg Tab 10 Mg PO DAILY Reported Omeprazole 40 Mg Cap 40 Mg PO DAILY Aspirin 81 (Aspirin) 81 Mg Tabdr 81 Mg PO DAILY Review of Systems General / Constitutional: No: Fever Eyes: No: Visual changes HENT: No: Headaches, Sore Throat, Rhinitis, Congestion, Gingival Bleeding, Dental Difficulties, Ear Discharge, Earache Cardiovascular: No: Chest Pain or Discomfort Respiratory: No: Shortness of Breath Gastrointestinal: No: Abdominal Pain Genitourinary: No: Dysuria Musculoskeletal: No: Pain Skin: Positive Itching, No Rash Neurologic: No: Weakness Psychiatric: No: Depression Endocrine: No: Polydipsia Hematologic/Lymphatic: No: Easy Bruising Physical Exam Narrative GENERAL: Well-developed, well-nourished in no acute distress. Nontoxic appearing. HEAD: Normocephalic, atraumatic. Patient has some angioedema of the upper and lower lips. EYES: Pupils equal round and reactive. Extraocular motions intact. No scleral icterus. No injection or drainage. ENT: TMs clear without erythema. The external auditory canals clear. Nose: clear . Posterior pharynx is pink and moist. No tonsillar edema or exudate. Uvula midline. Airway patent. No glossal edema. Normal speech. Normal secretions. Normal swallowing. NECK: Trachea midline.Supple, nontender, moves head freely. No central bony tenderness or spasm. CARDIOVASCULAR: Regular rate and rhythm without murmurs, gallops, or rubs. RESPIRATORY: Clear to auscultation. Breath sounds equal bilaterally. No wheezes , rales, or rhonchi. GASTROINTESTINAL: Abdomen soft, non-tender, nondistended. No hepato-splenomegaly , or palpable masses. No guarding. EXTREMITIES: No clubbing, cyanosis, or edema. No joint tenderness, effusion, or edema noted. BACK: Nontender without deformity or crepitance. No flank tenderness. Data Data Last Documented VS Vital Signs Date Time Temp Pulse Resp B/P (MAP) Pulse Ox O2 Delivery O2 Flow Rate FiO2 02/02/17 21:17 98.1 82 16 177/109 (131) 97 Room Air Orders Orders Iv Access Insert/Monitor (02/03/17 00:30) Ecg Monitoring (02/03/17 00:30) Diphenhydramine Inj (Benadryl Inj) (02/03/17 00:30) Dexamethasone Inj (Decadron Inj) (02/03/17 00:30) Famotidine Inj (Pepcid Inj) (02/03/17 00:30) Ed Discharge Order (02/03/17 02:09) MDM Medical Decision Making Medical Screen Exam Complete: Yes Emergency Medical Condition: Yes Medical Record Reviewed: Yes Differential Diagnosis Differential diagnosis: LANA inhibitor angioedema, food allergic reaction, contact dermatitis, Narrative Course IV access is obtained. Patient's given Pepcid 20 mg IV, Benadryl 50 mg IV, and Decadron 10 mg IV. Patient is advised that typically these medications do not resolve angioedema at that this is related to his lisinopril. If it is from food allergies he should have some improvement of symptoms. The patient will be monitored. The patient's swelling has not worsened. It is only marginally improved. I suspect this is an LANA inhibitor induced angioedema. I do not suspect he will have any significant improvement with the medications. He is advised to discontinue his lisinopril and see his doctor tomorrow for recheck or return to the ER if symptoms worsen. Diagnosis Primary Impression: LANA inhibitor-aggravated angioedema Qualified Codes: T78.3XXA - Angioneurotic edema, initial encounter; T46.4X5A - Adverse effect of [id number]-[id number]-[id number] inhibitors, initial encounter Patient Instructions: General Instructions Additional Instructions: Rest. Stop your lisinopril. Follow-up with your doctor tomorrow. Return to the ER if symptoms worsen. Med/Other Pt SpecificInfo: Med Stopped (lisinopril) Disposition: 01 DISCHARGE HOME Condition: Stable Quincy Abdi Feb 03, 2017 00:37
== END 2017-02-03 02:32 | disposition home or self-care (01) ==
LOC: NEPD 21:13
DX: T78.3XXA Angioneurotic edema, initial encounter (principal); T46.4X5A Adverse effect of angiotensin-converting-enzyme inhibitors, initial encounter; I10 Essential (primary) hypertension; I48.91 Unspecified atrial fibrillation; E78.00 Pure hypercholesterolemia, unspecified
CPT/HCPCS: 96374; 96375; 99284; J1100; J1200

== ENCOUNTER 2017-04-29 13:00 | Emergency (ER) | payer OTHER, MEDICAID ==
[~2017-04-29] VITALS: Ht 180.3 cm; Wt 120.0 kg
[2017-04-29 13:41] VITALS: BP 146/68; PULSE 63; RESP 16; TEMP 97.3; O2SAT 100
[2017-04-29] MEDS ORDERED: PRED20 PO (14:04)
--- NOTE | 2017-04-29 14:10 | PD ---
HPI Chief Complaint: Back/ Neck Pain or Injury Time Seen by Provider: 13:50 Travel History International Travel<30 days: No Contact w/Intl Traveler<30days: No Traveled to known affect area: No History of Present Illness HPI 66-year-old male presents to the emergency room for evaluation of acute on chronic low back pain. He was diagnosed with back pain in the 70s. Patient has been having exacerbation of pain for the past 5 days. States he woke up this morning with acute worsening symptoms. Pain is localized to the right buttocks and radiates down his right lower extremity. He took his prescribed Percocet and Robaxin without any relief in symptoms. Patient follows with a pain management physician who ordered a CT within the past 2 weeks. Patient was told that he will need either surgery or steroid injections in his spine but has not had either performed yet. He denies saddle anesthesia, loss of bowel or bladder control, lower extremity paresthesias, fever, chills, nausea, vomiting, weight loss, IV drug use, or history of cancer. Denies history of diabetes. PFSH Past Medical History Arthritis: No Asthma: No Atrial Fibrillation: Yes Autoimmune Disease: No Heart Rhythm Problems: Yes (AFIB) Cancer: No Cardiac Catheterization: No Cardiovascular Problems: Yes (A-FIB) High Cholesterol: Yes Chest Pain: No Congestive Heart Failure: No COPD: No Cerebrovascular Accident: No Diabetes: No Diminished Hearing: No Diverticulitis: Yes Endocrine: No Genitourinary: Yes Headaches: No Hypertension: Yes Immune Disorder: No Implanted Vascular Access Dvce: No Musculoskeletal: Yes (MULT FXS RLE / SPINAL STENOSIS) Neurologic: No Psychiatric: No Reproductive: No Respiratory: Yes (PE) Immunizations Current: No Migraines: No Myocardial Infarction: Yes Seizures: No Sleep Apnea: No Thyroid Disease: No PNEUMOCCOCAL Vaccine (Year): 2 Past Surgical History Abdominal Surgery: Yes (Appendectomy) Appendectomy: Yes Cardiac Surgery: No Coronary Artery Bypass Graft: No Ear Surgery: No Endocrine Surgery: No Eye Surgery: No Genitourinary Surgery: No Gynecologic Surgery: No Oral Surgery: No Thoracic Surgery: No Other Surgery: Yes (WOUND VAC-FOR SKIN REGENERATION) Family History Family Myocardial Infarction: Yes Social History Alcohol Use: Yes (6 PACK PER DAY) Tobacco Use: No Substance Use: No Allergies-Medications (Allergen,Severity, Reaction): Coded Allergies: lactose (Unverified Allergy, Severe, LACTOSE INTOLERANT, 04/29/17) Reported Meds & Prescriptions Reported Meds & Active Scripts Active Lisinopril 20 Mg Tab 40 Mg PO DAILY Hydrocodone-Acetaminophen 5-325 mg Tab 1 Tab PO Q4H PRN Hydrochlorothiazide 25 Mg Tab 50 Mg PO DAILY Neurontin (Gabapentin) 300 Mg Cap 600 Mg PO TID Norvasc (Amlodipine Besylate) 10 Mg Tab 10 Mg PO DAILY Reported Omeprazole 40 Mg Cap 40 Mg PO DAILY Aspirin 81 (Aspirin) 81 Mg Tabdr 81 Mg PO DAILY Review of Systems Except as stated in HPI: all other systems reviewed are Neg Physical Exam Narrative GENERAL: Well-nourished, well-developed female in no acute distress. Afebrile. Ambulatory. Patient is leaning over the bed with his right leg propped up in the air. SKIN: Focused skin assessment warm/dry. HEAD: Normocephalic. EYES: No scleral icterus. No injection or drainage. NECK: Supple, trachea midline. No JVD or lymphadenopathy. CARDIOVASCULAR: Regular rate and rhythm without murmurs, gallops, or rubs. RESPIRATORY: Breath sounds equal bilaterally. No accessory muscle use. BACK: No midline tenderness. No obvious deformity. No CVA tenderness. Mild tenderness to palpation of the right buttocks. Data Data Last Documented VS Vital Signs Date Time Temp Pulse Resp B/P (MAP) Pulse Ox O2 Delivery O2 Flow Rate FiO2 04/29/17 13:41 97.3 63 16 146/68 (94) 100 Orders Orders Dexamethasone Inj (Decadron Inj) (04/29/17 14:15) Orphenadrine Inj (Norflex Inj) (04/29/17 14:15) Ketorolac Inj (Toradol Inj) (04/29/17 14:15) [facility] Medical Decision Making Medical Screen Exam Complete: Yes Emergency Medical Condition: Yes Medical Record Reviewed: Yes Differential Diagnosis Acute on chronic back pain, spinal stenosis, sciatica Narrative Course 66-year-old male with a history of chronic low back pain presents to the emergency room for evaluation of the same. States this episode started 5 days ago. No trauma or injury. No red flag symptoms. No midline tenderness. He had a CT performed by his pain management doctor within the past 2 weeks and was told he will need surgery or spinal injections. Patient is ambulatory. He is leaning over the bed with his right leg laced in the air to help relieve the pain. He will be given Norflex, Toradol, and Decadron in the emergency room and discharged with prescription for prednisone. Told to follow-up with his pain management physician or return for worsening symptoms. He understands and agrees to plan. Diagnosis Primary Impression: Sciatica of right side associated with disorder of lumbar spine Referrals: Pain Management Additional Instructions: Rest and drink plenty of fluids. Take prednisone as directed, until gone. Take prescribed medication as directed Follow-up with a primary care physician. Return to the emergency room for worsening symptoms. Scripts Prednisone (Prednisone) 20 Mg Tab 40 MG PO DAILY, #8 TAB 0 Refills Take 40 mg (2 tablets) daily for 5 days Prov: Refugio Meza MD 04/29/17 Disposition: 01 DISCHARGE HOME Condition: Stable Brittany Mazariegos Apr 29, 2017 14:10
[2017-04-29] MEDS ORDERED: ORPHENADRINE INJ 60 MG/2 ML AMP IM ONE (14:15)
[2017-04-29] MEDS ORDERED: DEXAMETHASONE SOD PHOS 4 MG/ML VIAL IM ONE (14:15)
[2017-04-29] MEDS ORDERED: KETOROLAC TROMETHAMINE 60 MG/2 ML (IM) VIAL IM ONE (14:15)
== END 2017-04-29 14:35 | disposition home or self-care (01) ==
LOC: NEPK 13:00
DX: M54.31 Sciatica, right side (principal); M53.86 Other specified dorsopathies, lumbar region; I48.91 Unspecified atrial fibrillation; E78.00 Pure hypercholesterolemia, unspecified; I10 Essential (primary) hypertension; Z91.011 Allergy to milk products; Z79.82 Long term (current) use of aspirin
CPT/HCPCS: 96372; 99283; J1100; J1885; J2360

== ENCOUNTER 2017-05-01 05:37 | Emergency (ER) | payer OTHER, MEDICAID ==
[~2017-05-01] VITALS: Ht 180.3 cm; Wt 118.6 kg
[~2017-05-01 05:37] MED LIST changes: +PRED20 PO
[2017-05-01 05:40] VITALS: BP 196/93; PULSE 73; RESP 22; TEMP 97.4; O2SAT 99
[2017-05-01] MEDS ORDERED: methylPREDNISolone SOD SUCC 125 MG/2 ML VIAL IM ONE (07:15)
[2017-05-01] MEDS ORDERED: ACETAMINOPHEN/HYDROcodone 325 MG/7.5 MG TAB PO ONE (07:15)
[2017-05-01] MEDS ORDERED: ORPHENADRINE INJ 60 MG/2 ML AMP IM ONE (07:15)
--- NOTE | 2017-05-01 07:17 | PD ---
HPI Chief Complaint: Pain: Acute or Chronic Time Seen by Provider: 07:00 Travel History International Travel<30 days: No Contact w/Intl Traveler<30days: No Traveled to known affect area: No History of Present Illness HPI 66-year-old male presents emergency department complaining of acute on chronic left-sided sciatica and low back pain that started approximately 2 days ago. States that he came to emergency department 2 days ago where he received shot and other treatments but states he is still having pain. Says that he is having severe pain located in the left sacroiliac region with muscle spasms to the left thigh. Says this is his usual pattern of pain but wanted to be evaluated today. Says movements and pressure increases his pain. Says that he had a CT approximately 2 weeks ago and is due to follow-up with pain management doctor. He denies fever, chills, history of IV drug use, loss of bowel or bladder function, numbness or tingling. He denies trauma or other injuries to causes pain today. PFSH Past Medical History Arthritis: No Asthma: No Atrial Fibrillation: Yes Autoimmune Disease: No Heart Rhythm Problems: Yes (AFIB) Cancer: No Cardiac Catheterization: No Cardiovascular Problems: Yes (A-FIB) High Cholesterol: Yes Chest Pain: No Congestive Heart Failure: No COPD: No Cerebrovascular Accident: No Diabetes: No Diminished Hearing: No Diverticulitis: Yes Endocrine: No Genitourinary: Yes Headaches: No Hypertension: Yes Immune Disorder: No Implanted Vascular Access Dvce: No Musculoskeletal: Yes (MULT FXS RLE / SPINAL STENOSIS) Neurologic: No Psychiatric: No Reproductive: No Respiratory: Yes (PE) Immunizations Current: No Migraines: No Myocardial Infarction: Yes Seizures: No Sleep Apnea: No Thyroid Disease: No Tetanus Vaccination: > 5 Years Influenza Vaccination: Yes PNEUMOCCOCAL Vaccine (Year): 2 Past Surgical History Abdominal Surgery: Yes (Appendectomy) Appendectomy: Yes Cardiac Surgery: No Coronary Artery Bypass Graft: No Ear Surgery: No Endocrine Surgery: No Eye Surgery: No Genitourinary Surgery: No Gynecologic Surgery: No Oral Surgery: No Thoracic Surgery: No Other Surgery: Yes (WOUND VAC-FOR SKIN REGENERATION) Family History Family Myocardial Infarction: Yes Social History Alcohol Use: Yes Tobacco Use: No Substance Use: No Allergies-Medications (Allergen,Severity, Reaction): Coded Allergies: lactose (Unverified Allergy, Severe, LACTOSE INTOLERANT, 05/01/17) Reported Meds & Prescriptions Reported Meds & Active Scripts Active Prednisone 20 Mg Tab 40 Mg PO DAILY Take 40 mg (2 tablets) daily for 5 days Lisinopril 20 Mg Tab 40 Mg PO DAILY Hydrocodone-Acetaminophen 5-325 mg Tab 1 Tab PO Q4H PRN Hydrochlorothiazide 25 Mg Tab 50 Mg PO DAILY Neurontin (Gabapentin) 300 Mg Cap 600 Mg PO TID Norvasc (Amlodipine Besylate) 10 Mg Tab 10 Mg PO DAILY Reported Omeprazole 40 Mg Cap 40 Mg PO DAILY Aspirin 81 (Aspirin) 81 Mg Tabdr 81 Mg PO DAILY Review of Systems Except as stated in HPI: all other systems reviewed are Neg Physical Exam Narrative GENERAL: Well-nourished, well-developed patient. SKIN: Focused skin assessment warm/dry. HEAD: Normocephalic. EYES: No scleral icterus. No injection or drainage. NECK: Supple, trachea midline. No JVD or lymphadenopathy. No midline tenderness GASTROINTESTINAL: Abdomen soft, non-tender, nondistended. MUSCULOSKELETAL: No cyanosis, or edema. BACK: No CVA tenderness. No rash. No point tenderness on palpation of the spine. TTP to right sacroiliac joint, no obvious muscle spasms however, body habitus limits my exam Psych: appropriate mood and affect Data Data Last Documented VS Vital Signs Date Time Temp Pulse Resp B/P (MAP) Pulse Ox O2 Delivery O2 Flow Rate FiO2 05/01/17 05:40 97.4 73 22 196/93 (127) 99 Orders Orders Methylprednisolone So Succ Inj (Solumedr (05/01/17 07:15) Acetamin-Hydrocod 325-7.5 Mg (Dracut 7.5 (05/01/17 07:15) Orphenadrine Inj (Norflex Inj) (05/01/17 07:15) Ed Discharge Order (05/01/17 07:18) MDM Medical Decision Making Medical Screen Exam Complete: Yes Emergency Medical Condition: Yes Differential Diagnosis Sciatica, muscle spasms, neuropathy Narrative Course 66-year-old male presents emergency department complaining of acute on chronic left-sided sciatica and low back pain that started approximately 2 days ago. States that he came to emergency department 2 days ago where he received shot and other treatments but states he is still having pain. Says that he is having severe pain located in the left sacroiliac region with muscle spasms to the left thigh. Says this is his usual pattern of pain but wanted to be evaluated today. Says movements and pressure increases his pain. Says that he had a CT approximately 2 weeks ago and is due to follow-up with pain management doctor. He denies fever, chills, history of IV drug use, loss of bowel or bladder function, numbness or tingling. He denies trauma or other injuries to causes pain today. Vital signs stable, although hypertensive likely secondary to pain. Physical exam findings consistent with a 66-year-old male well-developed, obese in mild distress. Patient moves all extremities spontaneously does not exhibit weakness. No obvious muscle spasms to the extremities. Tenderness palpation of the right sacroiliac joint. Patient states he has not taken any medication today. Solu-Medrol, Norflex, hydrocodone will be administered for pain. Advised that he avoid prednisone today as he has had a large dose of Solu- Medrol. I do not believe imaging studies are indicated today as patient has not had an injury and his pain does follow a normal injury pattern for his pain. Patient will be discharged advised follows pain management doctor sooner rather than later as he is in pain. At discharge, pt say he does not have muscle relaxers at home and they have not been prescribed. Short course of robaxin Rx. Patient states understanding and will comply Diagnosis Primary Impression: Sciatic leg pain Referrals: Pain Management Additional Instructions: Perform light stretches of the lower back and legs, and alternate heat and ice packs. If you develop increased pain, weakness, fever, chills, or bowel or bladder issues, return to the ED for further treatment and evaluation. Follow up with your primary care physician in 2-3 days. Continue medications as prescribed previously. Do not take prednisone today. Scripts Methocarbamol (Robaxin) 500 Mg Tab 500 MG PO TID for Muscle Spasm for 3 Days, TAB 0 Refills Prov: Emily Mena 05/01/17 Disposition: 01 DISCHARGE HOME Condition: Stable Emily Mena May 01, 2017 07:17
[2017-05-01] MEDS ORDERED: ROBA500T PO (07:57)
[2017-05-01 08:09] VITALS: BP 173/79
== END 2017-05-01 08:13 | disposition home or self-care (01) ==
LOC: NEPD 05:37
DX: M54.42 Lumbago with sciatica, left side (principal)
CPT/HCPCS: 96372; 99283; J2360; J2930

== ENCOUNTER 2017-05-03 22:47 | Emergency (ER) | payer OTHER, MEDICAID ==
[~2017-05-03] VITALS: Ht 180.3 cm; Wt 118.5 kg
[~2017-05-03 22:47] MED LIST changes: +ROBA500T PO
[2017-05-03 22:58] VITALS: BP 152/71; PULSE 95; RESP 20; TEMP 98.5; O2SAT 97
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
[2017-05-03] MEDS ORDERED: ORPHENADRINE INJ 60 MG/2 ML AMP IM ONE (23:30)
[2017-05-03] MEDS ORDERED: KETOROLAC TROMETHAMINE 30 MG/ML (IVP) VIAL IV PUSH ONE (23:30)
[2017-05-03 23:55] LABS: BASOPHIL # 0.1 TH/MM3 (0-0.2); EOSINOPHIL # 0.3 TH/MM3 (0-0.4); HEMATOCRIT 43.3 % (39.0-51.0); HEMOGLOBIN 14.8 GM/DL (13.0-17.0); LYMPH % 39.3 % (9.0-44.0); LYMPHOCYTE # 3.3 TH/MM3 (1.0-4.8); MEAN CELL VOLUME 90.9 FL (80.0-100.0); MEAN CORPUSCULAR HEMOGLOBIN 31.2 PG (27.0-34.0); MEAN CORPUSCULAR HGB CONC 34.3 % (32.0-36.0); MEAN PLATELET VOLUME 7.5 FL (7.0-11.0); MONO % 8.5 % (0.0-8.0); MONOCYTE # 0.7 TH/MM3 (0-0.9); NEUT % 47.2 % (16.0-70.0); PLATELET COUNT 217 TH/MM3 (150-450); RED BLOOD COUNT 4.76 MIL/MM3 (4.50-5.90); RED CELL DISTRIBUTION WIDTH 13.1 % (11.6-17.2); WHITE BLOOD COUNT 8.4 TH/MM3 (4.0-11.0)
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
--- NOTE | 2017-05-04 00:21 | RADRPT ---
EXAM DATE/TIME: 05/03/2017 23:33 [facility] COMPARISON: US LEG RIGHT VENOUS DOPPLER, December 17, 2013, 11:27. INDICATIONS : Right leg swelling/pain. MEDICAL HISTORY : Hypertension. Hypercholesterolemia. Neck pain. Glasses. Atrial fibrillation. Left groin hernia. SURGICAL HISTORY : Appendectomy. Right femur surgery. ENCOUNTER: Subsequent ACUITY: 1 day PAIN SCORE: 10/10 LOCATION: Right leg. TECHNIQUE: Venous ultrasound of the leg was performed from the inguinal ligament to the proximal calf. Real-alistair e, color Doppler and spectral tracing, compression and augmentation techniques were used. FINDINGS: There is normal compressibility of the deep venous system from the inguinal region to the proximal ca lf. No echogenic clot is seen in the lumen of the common femoral, femoral, popliteal, and posterior tibial veins. There is a normal response of the venous system to proximal and distal augmentation an d respiration. CONCLUSION: 1. Negative for deep venous thrombosis. Robin Dyer MD on May 04, 2017 at 0:19 Board Certified Radiologist. This report was verified electronically.
[2017-05-04 00:24] LABS: BICARBONATE 24.9 MEQ/L (21.0-32.0); BLOOD UREA NITROGEN 24 MG/DL (7-18); C-REACTIVE PROTEIN LESS THAN 0.29 MG/DL (0.00-0.30); CALCIUM 8.3 MG/DL (8.5-10.1); CHLORIDE 104 MEQ/L (98-107); CREATININE 1.12 MG/DL (0.60-1.30); GLOMERULAR FILTRATION RATE 79 ML/MIN (>89); GLUCOSE,RANDOM 115 MG/DL (74-106); MAGNESIUM 2.3 MG/DL (1.5-2.5); SODIUM (NA) 137 MEQ/L (136-145)
[2017-05-04 01:25] LABS: INTERNATIONAL NORMALIZED RATIO 1.1 RATIO
--- NOTE | 2017-05-04 01:55 | RADRPT ---
EXAM DATE/TIME: 05/04/2017 00:49 [facility] COMPARISON: MRI LUMBAR SPINE W/O CONTRAST, March 28, 2016, 11:16. INDICATIONS : Low back pain with no known injury. RADIATION DOSE: 35.86 CTDIvol (mGy) MEDICAL HISTORY : Hypertension. Diverticulitis. Myocardial infarction.Atrial fibrillation SURGICAL HISTORY : Appendectomy. ENCOUNTER: Initial ACUITY: 1 day PAIN SCALE: 7/10 LOCATION: lower back TECHNIQUE: Volumetric scanning of the lumbar spine was performed. Multiplanar reconstructions in the sagittal, coronal and oblique axial planes were performed. Using automated exposure control and adjustment of the mA and/or kV according to patient size, radiation dose was kept as low as reasonably achievable t o obtain optimal diagnostic quality images. DICOM format image data is available electronically for review and comparison. FINDINGS: There is preservation of vertebral body height. 2 mm anterolisthesis of L4 with respect L5 is simila r to prior MR. Vacuum phenomenon in the anterior T10-11 interspace. Moderate severity degenerative changes in the posterior elements of L3-S1, symmetric. No evidence of vertebral body fracture. T12-L1: The thecal sac has a normal diameter. No evidence of disc bulge or protrusion. The neural foramina are patent bilaterally. L1-L2: No central disc bulge or protrusion. There is bulge or protrusion into the neural foramina bilateral ly and mild bilateral facet joint hypertrophy. L2-L3: Broad-based bulge of protrusion of the disc flattens the margin of the thecal sac and extends into th e neural foramina bilaterally. Moderate facet joint hypertrophy. L3-L4: Broad-based bulging of the disc extends into the neural foramen on both sides. No focal disc protrus ion. This is very similar to prior MR. L4-L5: Severe spinal stenosis similar in severity to prior MR due to a combination of the anterolisthesis, b road based protrusion of the disc, and advanced bilateral facet joint hypertrophy. There is bilatera l neural foraminal stenosis. The severity of findings are very similar to prior MR. L5-S1: Central protrusion of the disc without deformity of the thecal sac. There is impression on the S1 ne rve roots as they course through the bony spinal canal bilaterally. There is extension of the disc p rotrusion into the neural foramen on the left side. Moderate facet hypertrophy. CONCLUSION: 1. Severe spinal stenosis at L4-5 similar to prior MR. 2. Increase in the size of the disc protrusion at L5-S1, now causing impression upon the S1 nerve kimberly ts as they course through the bony spinal canal. 3. Stable configuration to the disc origin at L2-3 and L3-4. Robin Dyer MD on May 04, 2017 at 1:46 Board Certified Radiologist. This report was verified electronically.
[2017-05-04] MEDS ORDERED: HYDROmorphone HCL PF 2 MG/ML VIAL IV PUSH ONE (02:00)
[2017-05-04] MEDS ORDERED: ONDANSETRON HCL 4 MG/2 ML VIAL IV PUSH ONE (02:00)
[2017-05-04] MEDS ORDERED: HYDROmorphone HCL PF 1 MG/ML VIAL IV PUSH ONE (02:00)
[2017-05-04] MEDS ORDERED: CYCL10TA PO (02:14)
--- NOTE | 2017-05-04 10:44 | EKG ---
Date Performed: 05/03/2017 Time Performed: 23:44:30 PTAGE: 66 years EKG: Sinus rhythm POSSIBLE LEFT ATRIAL ENLARGEMENT NONSPECIFIC ST & T-WAVE ABNORMALITY BORDERLINE ECG Compared to PREVIOUS TRACING the patient is no longer in atrial fibrillation PREVIOUS TRACIN01/21 08.53 DOCTOR: Mercedes Cobos Interpretating Date/Time 05/04/2017 10:42:10
== END 2017-05-04 02:30 | disposition home or self-care (01) ==
LOC: NEPE 22:47
DX: M51.17 Intervertebral disc disorders with radiculopathy, lumbosacral region (principal); I10 Essential (primary) hypertension; G89.29 Other chronic pain; M79.89 Other specified soft tissue disorders; Z79.899 Other long term (current) drug therapy
CPT/HCPCS: 72131; 73590; 80048; 83735; 85025; 85610; 85652; 85730; 86140; 93005; 93971; 96372; 96374; 96375; 99285; J1170; J1885; J2360; J2405

== ENCOUNTER 2017-05-14 05:04 | Emergency (ER) | payer OTHER, MEDICAID ==
[~2017-05-14 05:04] MED LIST changes: +CYCL10TA PO
[2017-05-14] MEDS ORDERED: CYCL10TA PO (09:19)
== END 2017-05-14 05:49 | disposition left against medical advice (07) ==
LOC: NED 05:04
DX: M54.9 Dorsalgia, unspecified (principal); Z53.21 Procedure and treatment not carried out due to patient leaving prior to being seen by health care provider
CPT/HCPCS: 99281

== ENCOUNTER 2017-05-14 06:19 | Emergency (ER) | payer OTHER, MEDICAID ==
[~2017-05-14] VITALS: Ht 180.3 cm; Wt 118.6 kg
[2017-05-14 06:30] VITALS: BP 206/106; PULSE 90; RESP 18; TEMP 98.1; O2SAT 98
[2017-05-14] MEDS ORDERED: KETOROLAC TROMETHAMINE 30 MG/ML (IVP) VIAL IV PUSH ONE (07:30)
--- NOTE | 2017-05-14 07:44 | PD ---
HPI Chief Complaint: Back/ Neck Pain or Injury Time Seen by Provider: 07:20 Travel History International Travel<30 days: No Contact w/Intl Traveler<30days: No Traveled to known affect area: No History of Present Illness HPI 66-year-old male states he has been having chronic pain to his back that goes down his right leg. He states that the pain is worse today after he had a fall. He denies any new weakness, numbness, incontinence or other concurrent complaints. Report was patient was waiting out in triage when he left and then came back by ambulance. Quality pain is sharp. Severity is severe per patient. Pain is worse with movement. He denies other modifying factors. Duration is couple of months but worse over the past couple days. PFSH Past Medical History Arthritis: No Asthma: No Atrial Fibrillation: Yes Autoimmune Disease: No Heart Rhythm Problems: Yes (AFIB) Cardiac Catheterization: No Cardiovascular Problems: Yes (HTN ) High Cholesterol: Yes Chest Pain: No Congestive Heart Failure: No COPD: No Cerebrovascular Accident: No Diabetes: No Diminished Hearing: No Diverticulitis: Yes Endocrine: No Genitourinary: Yes Headaches: No Hypertension: Yes Immune Disorder: No Implanted Vascular Access Dvce: No Musculoskeletal: Yes (MULT FXS RLE / SPINAL STENOSIS) Neurologic: No Psychiatric: No Reproductive: No Respiratory: Yes (PE) Immunizations Current: No Migraines: No Myocardial Infarction: Yes Seizures: No Sleep Apnea: No Thyroid Disease: No PNEUMOCCOCAL Vaccine (Year): 2 Past Surgical History Abdominal Surgery: Yes (Appendectomy) Appendectomy: Yes Cardiac Surgery: No Coronary Artery Bypass Graft: No Ear Surgery: No Endocrine Surgery: No Eye Surgery: No Genitourinary Surgery: No Gynecologic Surgery: No Oral Surgery: No Thoracic Surgery: No Other Surgery: Yes (WOUND VAC-FOR SKIN REGENERATION) Family History Family Myocardial Infarction: Yes Social History Alcohol Use: Yes Tobacco Use: No Substance Use: No Allergies-Medications (Allergen,Severity, Reaction): Coded Allergies: lactose (Unverified Allergy, Severe, LACTOSE INTOLERANT, 05/14/17) Reported Meds & Prescriptions Reported Meds & Active Scripts Active Flexeril (Cyclobenzaprine HCl) 10 Mg Tab 10 Mg PO TID PRN Robaxin (Methocarbamol) 500 Mg Tab 500 Mg PO TID 3 Days Prednisone 20 Mg Tab 40 Mg PO DAILY Take 40 mg (2 tablets) daily for 5 days Lisinopril 20 Mg Tab 40 Mg PO DAILY Hydrocodone-Acetaminophen 5-325 mg Tab 1 Tab PO Q4H PRN Hydrochlorothiazide 25 Mg Tab 50 Mg PO DAILY Neurontin (Gabapentin) 300 Mg Cap 600 Mg PO TID Norvasc (Amlodipine Besylate) 10 Mg Tab 10 Mg PO DAILY Reported Omeprazole 40 Mg Cap 40 Mg PO DAILY Aspirin 81 (Aspirin) 81 Mg Tabdr 81 Mg PO DAILY Review of Systems Except as stated in HPI: all other systems reviewed are Neg Physical Exam Narrative GENERAL: 66-year-old male who appears uncomfortable SKIN: Focused skin assessment warm/dry. HEAD: Atraumatic. Normocephalic. EYES: Pupils equal and round. No scleral icterus. No injection or drainage. ENT: No nasal bleeding or discharge. Mucous membranes pink and moist. NECK: Trachea midline. CARDIOVASCULAR: Regular rate and rhythm. RESPIRATORY: No accessory muscle use. Clear to auscultation. Breath sounds equal bilaterally. GASTROINTESTINAL: Abdomen soft, non-tender, nondistended. MUSCULOSKELETAL: No obvious deformities. No clubbing. No cyanosis. No edema. NEUROLOGICAL: Awake and alert. No obvious cranial nerve deficits. Motor grossly within normal limits. Normal speech. 5 out of 5 in all 4 extremities PSYCHIATRIC: Appropriate mood and affect; insight and judgment normal. Back: Tender to right paraspinal mid lumbar spine without step-off of midline spine Data Data Last Documented VS Vital Signs Date Time Temp Pulse Resp B/P (MAP) Pulse Ox O2 Delivery O2 Flow Rate FiO2 05/14/17 08:11 86 16 163/83 (109) 97 Room Air 05/14/17 06:[address] Lumb Spine W/O Contrast (05/14/17 ) Iv Access Insert/Monitor (05/14/17 07:20) Ketorolac Inj (Toradol Inj) (05/14/17 07:30) Ed Discharge Order (05/14/17 09:16) MDM Medical Decision Making Medical Screen Exam Complete: Yes Emergency Medical Condition: Yes Medical Record Reviewed: Yes (Past history confirmed) Interpretation(s) Last [address] 05/14/17 0000 Signed Impressions: Service Date/Time: April 08:15 - CONCLUSION: 1. No acute bony abnormality. 2. Degenerative anterolisthesis at L4-5 secondary to advanced facet arthropathy. 3. Right L4-L5 neural foraminal fat effacement from what appears to be a marginal disc protrusion. 4. Mild to moderate central spinal stenosis at L4-5 secondary to mild broad-based disc bulge and hypertrophic facet arthropathy. Faisal Lopez MD Differential Diagnosis Fracture, sciatica, spinal stenosis Narrative Course Will check CT lumbar spine and dose with Toradol and reevaluate Patient up and walking in room. Updated about CT showing no acute fracture. Patient neurologically intact on exam. Patient denies any new complaints and states that they are feeling better. all questions answered. Patient knows that follow up is incumbent on them and to return to the emergency room immediately if new or worsening symptoms develop. Patient given strict return precautions, vitals reviewed and are normal, agrees to further workup as an outpatient. Diagnosis Primary Impression: Back pain Qualified Codes: M54.5 - Low back pain Additional Impression: Fall Qualified Codes: W19.XXXA - Unspecified fall, initial encounter Patient Instructions: General Instructions Additional Instructions: return as needed, follow with primary Thursday, tylenol as needed, do not take flexeril while driving Med/Other Pt SpecificInfo: Prescription(s) given Scripts Cyclobenzaprine (Flexeril) 10 Mg Tab 10 MG PO TID Y for PAIN SCALE 1 TO 10, #15 TAB 0 Refills Prov: Xiomara Torres MD 05/14/17 Disposition: 01 DISCHARGE HOME Condition: Stable Xiomara Torres MD May 14, 2017 07:44
[2017-05-14 08:11] VITALS: BP 163/83; PULSE 86; RESP 16; O2SAT 97
--- NOTE | 2017-05-14 08:52 | RADRPT ---
EXAM DATE/TIME: 05/14/2017 08:15 [facility] COMPARISON: CT LUMBAR SPINE W/O CONTRAST, May 04, 2017, 0:49. INDICATIONS : Lower back pain radiating down the right leg. RADIATION DOSE: 35.86 CTDIvol (mGy) MEDICAL HISTORY : Hypertension. Spinal stenosis. SURGICAL HISTORY : None. ENCOUNTER: Initial ACUITY: 1 day PAIN SCALE: 5/10 LOCATION: lower back TECHNIQUE: Volumetric scanning of the lumbar spine was performed. Multiplanar reconstructions in the sagittal, coronal and oblique axial planes were performed. Using automated exposure control and adjustment of the mA and/or kV according to patient size, radiation dose was kept as low as reasonably achievable t o obtain optimal diagnostic quality images. DICOM format image data is available electronically for review and comparison. FINDINGS: VERTEBRAE: Normal vertebral body height. Significant facet arthropathy is evident throughout the lumbar spine. T here are dense changes identified at L3-4, L4-5 and L5-S1. The L4-5 level demonstrates significant keke int space narrowing subcortical cyst formation and marginal spurring. ALIGNMENT: A grade 1 anterolisthesis is noted at L4-5. Alignment is a large well maintained. T12-L1: The thecal sac has a normal diameter. No evidence of disc bulge or protrusion. The neural foramina are patent bilaterally. L1-L2: The thecal sac has a normal diameter. No evidence of disc bulge or protrusion. The neural foramina are patent bilaterally. L2-L3: The thecal sac has a normal diameter. No evidence of disc bulge or protrusion. The neural foramina are patent bilaterally. L3-L4: The thecal sac has a normal diameter. No evidence of disc bulge or protrusion. The neural foramina are patent bilaterally. L4-L5: Neural foraminal fat effacement is identified in the right neural foramen characteristic of right pos terolateral disc protrusion. Mild anterior epidural space is noted from what appeared to be broad-bas ed disc bulge. L5-S1: The thecal sac has a normal diameter. No evidence of disc bulge or protrusion. The neural foramina are patent bilaterally. CONCLUSION: 1. No acute bony abnormality. 2. Degenerative anterolisthesis at L4-5 secondary to advanced facet arthropathy. 3. Right L4-L5 neural foraminal fat effacement from what appears to be a marginal disc protrusion. 4. Mild to moderate central spinal stenosis at L4-5 secondary to mild broad-based disc bulge and hype rtrophic facet arthropathy. Faisal Lopez MD on May 14, 2017 at 8:38 Board Certified Radiologist. This report was verified electronically.
[2017-05-14] MEDS ORDERED: CYCL10TA PO (09:19)
== END 2017-05-14 09:39 | disposition home or self-care (01) ==
LOC: NEPE 06:19
DX: M54.5 Low back pain (principal); G89.29 Other chronic pain; W19.XXXA Unspecified fall, initial encounter; I48.91 Unspecified atrial fibrillation; I10 Essential (primary) hypertension; E78.00 Pure hypercholesterolemia, unspecified; I25.2 Old myocardial infarction
CPT/HCPCS: 72131; 96374; 99284; J1885

== ENCOUNTER 2017-08-12 06:37 | Day surgery (SDC) | payer OTHER, MEDICAID ==
[~2017-08-12] VITALS: Ht 181.6 cm; Wt 115.0 kg
[2017-08-12] MEDS ORDERED: IOHEXOL 350 MG/ML 50 ML BTL (for Cath Lab) OTHER ONE (06:38)
[2017-08-12] MEDS ORDERED: IOHEXOL 350 MG/ML 100 ML BTL (for Cath Lab) OTHER ONE (06:38)
[2017-08-12 07:33] VITALS: BP 152/82; PULSE 66; RESP 16; TEMP 99.1; O2SAT 97
[2017-08-12 07:39] LABS: BASOPHIL % 0.3 % (0.0-2.0); EOSINOPHIL % 0.2 % (0.0-4.0); HEMATOCRIT 41.1 % (39.0-51.0); HEMOGLOBIN 13.9 GM/DL (13.0-17.0); LYMPH % 19.1 % (9.0-44.0); LYMPHOCYTE # 1.5 TH/MM3 (1.0-4.8); MEAN CELL VOLUME 91.3 FL (80.0-100.0); MEAN CORPUSCULAR HGB CONC 33.9 % (32.0-36.0); MEAN PLATELET VOLUME 7.4 FL (7.0-11.0); MONO % 6.3 % (0.0-8.0); MONOCYTE # 0.5 TH/MM3 (0-0.9); NEUT % 74.1 % (16.0-70.0); PLATELET COUNT 207 TH/MM3 (150-450); RED CELL DISTRIBUTION WIDTH 13.7 % (11.6-17.2)
[2017-08-12 07:48] LABS: INTERNATIONAL NORMALIZED RATIO 1.1 RATIO; PROTHROMBIN TIME - PATIENT 11.1 SEC (9.8-11.6)
[2017-08-12 07:51] LABS: BICARBONATE 25.5 MEQ/L (21.0-32.0); CALCIUM 8.7 MG/DL (8.5-10.1); CREATININE 1.08 MG/DL (0.60-1.30)
[2017-08-12] MEDS ORDERED: HEPARIN-NS/PF INJ 500 ML ONE ×2 (08:12→09:09)
[2017-08-12] MEDS ORDERED: MIDAZOLAM HCL 2 MG/2 ML VIAL ONE (08:12)
[2017-08-12] MEDS ORDERED: VERAPAMIL HCL 5 MG/2 ML VIAL ONE (08:13)
[2017-08-12] MEDS ORDERED: NITROGLYCERIN INJ 5 ML ONE (08:13)
[2017-08-12] MEDS ORDERED: HEPARIN SODIUM - IV 10,000 UNITS/10 ML VIAL ONE (08:13)
[2017-08-12] MEDS ORDERED: NS 1000P @30 MLS/HR (KVO) IV SCH (08:15)
[2017-08-12] MEDS ORDERED: LIDOCAINE HCL 1% PF 30 ML VIAL ONE (08:20)
[2017-08-12] MEDS ORDERED: ONDANSETRON HCL 4 MG/2 ML VIAL ONE (08:48)
--- NOTE | 2017-08-12 10:05 | CATHPROC ---
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 Equipment Time Rotor Casting Machine Operator Description Size Mfg Part Number Used/Scraped TRANSDUCER, TRPAUL [id number] 08:45 FanGager ([employer]) * Used W/NICOLE *[id number] 08:58 [employer] AR MOD CATHETER FR 5 [id number] Used INTRODUCER SET, 09:07 [employer] FR 5 [id number] *[id number] Used MICROPUNCTURE STIFF [phone] *[id number] 09:39 DAIG/[employer] ANGIOSEAL, FR6 VIP FR 6 Used *[id number] WIRE, AMPLATZ SUPER STIFF 09:01 Neovasc 180CM [id number] Used 3MMJ [id number] 08:45 [employer] BLANKET,WARM AIR CCL * Used *[id number] 08:45 [employer] PACK, CCL CUSTOM * Used *[id number] 08:45 [employer] SUPPORT, ARTERIAL ADULT 68822 *[id number] Used [id number] 08:29 MEDTRONIC JL 3.5 DXTERITY CATHETER FR 5 Used *[id number] WIRE, COUGAR LS 190CM [id number] 09:25 [employer]TRONIC 190CM Used (HYDROPHILIC) *[id number] 09:18 MEDTRONIC/AVE EBU 3.5 Z2 GUIDE CATHETER FR 6 Used *[id number] BAND, RADIAL COMPRESSION TR [id number] 09:44 [employer] MEDICAL 29CM Used LARGE 29 *[id number] 08:45 [employer] MEDICAL WIRE, EXCHANGE 260CM 3MMJ 260CM Used *[id number] 08:45 NAMIC MANIFOLD, 4 PORT * Used *[id number] 08:45 [employer] OMNIPAQUE, 350 MG, 150ML 150ML [id number] Used [id number] 09:07 TERUMO MEDICAL SHEATH, FR6 TERUMO (10CM) FR 6 Used *[id number] SHEATH, FR6 TRANSRADIAL [id number] 08:45 TERUMO MEDICAL FR 6 Used SLENDER 10CM *[id number] CATHETER, [employer] [id number] 09:27 VOLCANO Used IMAGING *[id number] 09:18 [employer]OL[employer] PRIME WIRE, VERRATA 185CM 185CM Used *[id number] Equipment Model, Serial, Lot Number and Expiration Data Description Model Number Serial Number Lot Number Expiration Date ANGIOSEAL, FR6 VIP [id number] 12-16-2017 AR MOD CATHETER [id number] 02-24-2019 CATHETER, [employer] 1113 [id number] 05-17-2019 IMAGING INTRODUCER SET, [id number] 05-18-2020 MICROPUNCTURE STIFF PRIME WIRE, VERRATA 185CM [id number] 07-16-2020 WIRE, AMPLATZ SUPER STIFF 3MMJ [id number] 05-11-2020 WIRE, COUGAR LS 190CM [id number] 11-23-2019 (HYDROPHILIC) History: Allergies Allergy Reaction lactose LACTOSE INTOLERANT History: Risk Factors Family History of Hypertension Dyslipidemia Previous VT Previous Heart Failure Premature CAD Yes Yes No No No Prior Valve Prior PCI Prior CABG Surgery No No No Cerebrovascular Peripheral Artery Chronic Lung On Dialysis Diabetes Disease Disease Disease No No No No No History: Stress Tests Stress or Imaging Studies Performed Yes Standard Exercise Stress Test No Stress Echo No Stress Test SPECT Stress Test SPECT Result Stress Test SPECT Ischemia Risk/Extent Yes Positive Intermediate Stress Test CMR No Cardiac CTA Coronary Calcium Score No No Labs Hgb (g/dl) Hct (%) WBC (l/cumm) Platelets (thousands) 11.60-17.00 35.00-51.00 4.00-11.00 150.00-450.00 13.9 41.1 8 207 Glucose (mg/dl) BUN (mg/dl) Creatinine (mg/dl) BUN:Creatinine (1:x) 74.00-106.00 7.00-18.00 0.50-1.30 10.00-20.00 96 22 1.0 22 Na (meq/l) K (meq/l) 136.00-145.00 3.50-5.10 139 3.9 INR (PTT:PT) 0.90-1.10 1.1 CPK-MB (ng/ML) 0.50-3.60 Not Drawn Medication Medication Total Dose (Bolus/Oral) Medication Total Dosage/Unit 1% XYLOCAINE 25 mL FENTANYL 75 mcg HEPARIN 7000 units RADIAL COCKTAIL 5 mL (Bolus) VERSED 0.5 mg ZOFRAN 4 mg Medications (Bolus/Oral) Medication Time Given Dosage/Unit Administered By Reason VERSED 08/12/2017 8:41:33 AM 0.5 mg Skyler Salcedo RN 0.5 mg VERSED given in lab by Skyler Salcedo RN via Peripheral IV. Ordered by Ketan Young FENTANYL 08/12/2017 8:42:50 AM 25 mcg Skyler Salcedo RN 25 mcg FENTANYL given in lab by Skyler Salcedo RN via Peripheral IV. Ordered by Ketan Young 1% XYLOCAINE 08/12/2017 8:43:01 AM 5 mL Skyler Salcedo RN 5 mL 1% XYLOCAINE given in lab by Skyler Salcedo RN in Right Radial via Subcutaneous. Ordered by Ketan Price RADIAL COCKTAIL 08/12/2017 8:45:41 AM 5 mL (Bolus) Skyler Salcedo RN 5 mL (Bolus) RADIAL COCKTAIL given in lab by Skyler Salcedo RN via Radial. Using [Solution Name]. Order ed by Ketan Young 4600units heparin. 200mcg Nitro ZOFRAN 08/12/2017 8:49:21 AM 4 mg Skyler Salcedo RN 4 mg ZOFRAN given in lab by Skyler Salcedo RN via Peripheral IV. Ordered by Ketan Young 1% XYLOCAINE 08/12/2017 9:08:20 AM 20 mL Ketan Young 20 mL 1% XYLOCAINE given in lab by Ketan Young in Right Groin via Subcutaneous. Ordered by Ketan Matias HEPARIN 08/12/2017 9:18:09 AM 7000 units Skyler Salcedo RN 7000 units HEPARIN given in lab by Skyler Salcedo RN via Peripheral IV. Ordered by Ketan Young FENTANYL 08/12/2017 9:27:42 AM 50 mcg Skyler Salcedo RN 50 mcg FENTANYL given in lab by Skyler Salcedo RN via Peripheral IV. Ordered by Ketan Young Medication (Drip) Medication Time Given Dosage/Unit Concentration/Unit Diluent (ml) Solution IV Solutions 08/12/2017 8:07:10 AM 0 mL (IV) 500 NaCl .9 Patient arrived on IV Solutions given by Niels Ho, ISAAC in Left Antecubital via Peripheral IV. Pu mp/Drip Flow = 20 ml/hr using NaCl .9. Ordered by Ketan Young Initial Case Assessment Cardiovascular HR Rhythm NIBP Chest Pain 60 sr 173/102 0 Edema Present Skin color Skin None Normal Warm Dry Circulatory - Right Pulses Dorsalis Pedis Femoral Radial 2 2 2 Scale (0,1,2,3,4,d) Circulatory - Left Pulses Dorsalis Pedis Femoral Radial 2 2 Scale (0,1,2,3,4,d) Neurological State Oriented to time-place- Alert Moves all extremities person Respiration - General Respiration Rate SpO2 (%) O2 (lpm) (B/min) 18 100 0 Final Case Assessment Cardiovascular HR Rhythm NIBP Chest Pain 60 sr 176/104 0 Edema Present Skin color Skin None Normal Warm Dry Circulatory - Right Pulses Dorsalis Pedis Femoral Radial 2 2 2 Scale (0,1,2,3,4,d) Circulatory - Left Pulses Dorsalis Pedis Femoral Radial 2 2 Scale (0,1,2,3,4,d) Neurological State Oriented to time-place- Alert Moves all extremities person Respiration - General Respiration Rate SpO2 (%) O2 (lpm) (B/min) 18 100 0 Chronological Log Time Study Chronological Log 8:07:01 Patient arrived via Bed. Positive Allens test performed by Mikal Carolina. 8:07:01 Patient Name, D.O.B, / Armband Verified By R.N. 8:07:02 Consent signed by the physician and the patient and verified by the Repair Electric Motor Assembler staff. 8:07:04 Pre-op and post- op instructions given; patient acknowledges understanding of instructions. Verbal Stimulation=~VERBAL~ Physical Stimulation=~PHYSICAL~ Airway=~AIRWAY~ Respiration=~RESPIR ATION~ 8:07:04 TOTAL=~TOTAL~. (0=absent, 1=limited, 2=present) 8:07:05 Presedation assessment performed by Repair Electric Motor Assembler RN. 8:07:06 Allens test performed on the right radial and ulnar artery. 8:07:06 Immediate Presedation assesment performed by physician. 8:07:07 Patient has been NPO for More than 6Hrs. 8:07:07 Skin Breakdown-none present per patient. 8:07:08 Patient Warmer Placed on the Table. 8:07:09 Noel Prominences Protected 8:07:10 A # 20 IV was noted in the Antecubital (left). Grade = 0 Patient arrived on IV Solutions given by Niels Ho, ISAAC in Left Antecubital via Peripheral IV. Pump/Drip Flow = 20 8:07:10 ml/hr using NaCl .9. Ordered by Ketan Young 8:07:11 History and physical on the chart or being dictated. Vitals capture started with the following parameters, Patient=Adult, Interval=5 min, Initial Pr bmgwyz=310 mmHg, 8:14:51 Deflation Rate=5 mmHg, Cuff placed on Right Ankle 8:16:12 HR=58 bpm, RMQF=998/102 mmhg, BqQ1=079.0 %, Resp=16 B/min, Segov[place]=2 8:17:25 Reference ECG taken Assessment: Initial Case, HR=60 BPM, Rhythm=sr, KLFY=237/102 mmhg, Chest Pain=0, Edema=None, Col or=Normal, Skin = Warm, Dry Right Pulses: Romeo Ped=2, Femoral=2, Radial=2 8:19:48 Left Pulses: Romeo Ped=2, Femoral=2 Neurological: State=Alert, Ox3, AGUIAR Respiration: Resp=18 B/min, HoL6=058 %, O2=0 lpm 8:20:27 Bilateral groins and right radial prepped with 2% chlorhexidine, and draped after a 3 minute waiting time. 8:21:21 HR=64 bpm, KXVL=917/96 mmhg, SpO2=99.0 %, Resp=16 B/min, [place]=2 8:24:53 MD paged 8:26:20 HR=57 bpm, AUMW=034/85 mmhg, CbR6=163.0 %, Resp=20 B/min 8:27:01 Pressure channel 1 zeroed. 8:31:11 HR=57 bpm, IIQH=999/102 mmhg, QtN9=805.0 %, Resp=14 B/min, Segov[place]=2 8:32:29 MD arrived. 8:35:35 HR=60 bpm, KEGA=164/98 mmhg, KjZ1=604.0 %, Resp=8 B/min, Seg[place]=2 8:41:15 HR=60 bpm, ZSTM=457/105 mmhg, TrO5=588.0 %, Resp=10 B/min, [place]=2 8:41:33 0.5 mg VERSED given in lab by Skyler Salcedo RN via Peripheral IV. Ordered by Terry Young Time Out. Correct patient, correct procedure, correct physician, labs, allergies, and equipment verified with woods laborer 8:41:37 team present. Fire risk assesment completed (see hard stop sheet for coding). Time Out Concu rred by MD and individual staff in procedure. 8:41:42 Presedation re-assessment performed by Repair Electric Motor Assembler RN. 8:41:44 Case Start 8:41:51 Verbal Stimulation=2 Physical Stimulation=2 Airway=2 Respiration=2 TOTAL=8. (0=absent, 1=esparza ited, 2=present) 8:42:50 25 mcg FENTANYL given in lab by Skyler Salcedo RN via Peripheral IV. Ordered by Norberto Young 8:43:01 5 mL 1% XYLOCAINE given in lab by Skyler Salcedo RN in Right Radial via Subcutaneous. Ordered by Ketan Young 8:43:57 Access site was right Radial Artery. A SHEATH, FR6 TRANSRADIAL SLENDER 10CM FR 6 was advanced into the Radial (right) using the Fely mccarty 8:45:12 technique. 8:45:33 HR=65 bpm, FOMY=739/93 mmhg, SpO2=99.0 %, Resp=20 B/min, Segov[place]=2 5 mL (Bolus) RADIAL COCKTAIL given in lab by Skyler Salcedo RN via Radial. Using [Solution Name]. Ordered by Hector 8:45:41 Ketan Hilario 4600units heparin. 200mcg Nitro A JR 4.0 INFINITI CATHETER FR 5 was advanced over a wire. OMNIPAQUE, 350 MG, 150ML 150ML was use d for 8:46:42 injections. Recorded Pressure: Ao, HR=87, Condition=Condition 1 8:48:54 (Aorta) Ao 164/96/127 8:49:05 The RCA was injected and visualized at various angles. OMNIPAQUE, 350 MG, 150ML 150ML used. 8:49:21 4 mg ZOFRAN given in lab by Skyler Salcedo RN via Peripheral IV. Ordered by Ketan Young. After removing the current catheter a JL 3.5 DXTERITY CATHETER FR 5 was advanced over a WIRE, EX CHANGE 260CM 8:51:07 3MMJ 260CM. 8:51:09 HR=88 bpm, QDOV=684/97 mmhg, SpO2=99.0 %, Resp=15 B/min, Seg[place]=2 8:53:47 The LCA was injected and visualized at various angles. OMNIPAQUE, 350 MG, 150ML 150ML used. 8:55:35 HR=81 bpm, ZVIG=900/97 mmhg, SpO2=99.0 %, Resp=11 B/min, Segov[place]=2 9:00:37 HR=75 bpm, CMOA=931/94 mmhg, SpO2=99.0 %, Resp=7 B/min, Segov[place]=2 9:01:08 A WIRE, AMPLATZ SUPER STIFF 3MMJ 180CM was inserted via Radial (right). 9:03:26 A AR MOD CATHETER FR 5 was advanced over a wire. OMNIPAQUE, 350 MG, 150ML 150ML was used for injections. 9:05:38 HR=71 bpm, KTYR=567/94 mmhg, SpO2=99.0 %, Resp=12 B/min, Segovia=2 9:07:42 Catheter was removed 9:08:04 Converting to groin approach. 20 mL 1% XYLOCAINE given in lab by Ketan Young in Right Groin via Subcutaneous. Ordered by Hector, 9:08:20 Ketan Handy. 9:10:45 Access site was Right Femoral Artery. A INTRODUCER SET, MICROPUNCTURE STIFF FR 5 was advanced into the Fem Art (right) using the Fely mccarty 9:11:01 technique. A SHEATH, FR6 TERUMO (10CM) FR 6 was exchanged in the Fem Art (right). This was necessary in ord er to 9:11:16 accomodate a larger catheter. 9:11:20 HR=62 bpm, IKME=404/88 mmhg, SpO2=99.0 %, Resp=15 B/min, Segovia=2 Recorded Pressure: LV, HR=72, Condition=Condition 1 9:14:32 (Left Ventricle) LV 174/5/27 Recorded Pressure: LV, Ao, HR=65, Condition=Condition 1 9:14:56 (Left Ventricle) LV 168/4/27, (Aorta) Ao 160/71/112 9:15:17 The RCA was injected and visualized at various angles. OMNIPAQUE, 350 MG, 150ML 150ML used. 9:15:36 HR=72 bpm, KVWL=801/100 mmhg, SpO2=99.0 %, Resp=13 B/min, Segovia=2 After removing the current catheter a EBU 3.5 Z2 GUIDE CATHETER FR 6 was advanced over a WIRE, E XCHANGE 9:17:49 260CM 3MMJ 260CM. 9:18:09 7000 units HEPARIN given in lab by Skyler Salcedo RN via Peripheral IV. Ordered by Lolita Young 9:20:41 HR=68 bpm, VOFY=353/92 mmhg, SpO2=99.0 %, Resp=12 B/min, Seg[place]=2 9:25:45 A WIRE, COUGAR LS 190CM (HYDROPHILIC) 190CM was inserted via Fem Art (right). 9:26:11 HR=60 bpm, MSBC=441/88 mmhg, XgV9=630.0 %, Resp=17 B/min, Segovia=2 9:27:42 50 mcg FENTANYL given in lab by Skyler Salcedo RN via Peripheral IV. Ordered by Norberto Young 9:28:00 Interventional wire has crossed the lesion 9:30:25 ACT (Normal Range 90-180) = 365 9:30:44 An CATHETER, [employer] IMAGING was advanced through the lesion. Images saved on to IVUS hard drive 9:30:59 IVUS in progress using CATHETER, [employer] IMAGING Mean Luminal Area measured 4.6 9:31:16 HR=65 bpm, WEDG=053/103 mmhg, SpO2=98.0 %, Resp=16 B/min 9:31:17 IVUS catheter removed 9:35:44 HR=68 bpm, KDIU=167/104 mmhg, SpO2=99.0 %, Resp=13 B/min, Segovia=2 9:36:29 Catheter was removed 9:39:28 ANGIOSEAL, FR6 VIP FR 6 placement in the Fem Art (right) Assessment: Final Case, HR=60 BPM, Rhythm=sr, EPXL=387/104 mmhg, Chest Pain=0, Edema=None, Color =Normal, Skin = Warm, Dry Right Pulses: Romeo Ped=2, Femoral=2, Radial=2 9:39:48 Left Pulses: Romeo Ped=2, Femoral=2 Neurological: State=Alert, Ox3, AGUIAR Respiration: Resp=18 B/min, PhT9=592 %, O2=0 lpm 9:40:44 Case End (Physician broke scrub) 9:40:46 Sterile dressing applied to site 9:40:48 No case complications noted. 9:40:50 Cine recording checked. 9:41:03 Implantable Device card placed in patient's chart. 9:41:28 HR=75 bpm, NTRL=107/123 mmhg, SpO2=99.0 %, Resp=9 B/min, Segovia=2 9:43:17 A Left Heart Cath was performed. 9:45:46 HR=69 bpm, TKDW=651/115 mmhg, SpO2=99.0 %, Resp=18 B/min, Segovia=2 Radial Compression Device Used. 12 mLs of air placed in BAND, RADIAL COMPRESSION TR LARGE 29 2 9CM. Affected 9:47:49 hand 100 % O2 saturation. 9:49:03 Patient moved to stretcher 9:50:02 Vitals capture stopped. 9:50:30 Patient moved to stretcher End Study - Contrast Media Used In Study Contrast Total Opened (mL) Total Used (mL) Total Wasted (mL) Omnipaque 150 150 0 End Study - Maximum Contrast Load Max Contrast Load (mL) 575.0 End Study - Radiation Exposure Fluoro Time (minutes) 18.6 End Study - Patient Disposition Complications Transferred To No Telemetry Bed
[2017-08-12] MEDS ORDERED: oxyCODONE/ACETAMINOPHEN 10 MG/325 MG TAB PO PRN (10:15)
[2017-08-12] MEDS ORDERED: MISC INFORMATION XX ONE ×2 (10:15)
[2017-08-12] MEDS ORDERED: oxyCODONE/ACETAMINOPHEN 5 MG/325 MG TAB PO PRN (10:15)
[2017-08-12] MEDS ORDERED: ACETAMINOPHEN 325 MG TAB PO PRN (10:15)
[2017-08-12] MEDS ORDERED: LABETALOL HCL 100 MG/20 ML VIAL ONE (11:08)
[2017-08-12] MEDS ORDERED: LABETALOL HCL 100 MG/20 ML VIAL IV ONE (11:45)
--- NOTE | 2017-08-12 12:20 | PD.CAR.PN ---
CVT Progress Note Subjective/Hospital Course: pt seen and evaluated / full consult pending sts data discussed with pt RISK SCORES About the STS Risk Calculator Procedure: CAB Only Risk of Mortality: 1.327% Morbidity or Mortality: 13.143% Long Length of Stay: 5.74% Short Length of Stay: 38.27% Permanent Stroke: 1.069% Prolonged Ventilation: 8.318% DSW Infection: 0.255% Renal Failure: 2.638% Reoperation: 5.965% Objective: Vital Signs Date Time Temp Pulse Resp B/P (MAP) Pulse Ox O2 Delivery O2 Flow Rate FiO2 08/12/17 10:00 95 Room Air 08/12/17 07:33 99.1 66 16 152/82 (105) 97 Labs: Laboratory Tests Test 08/12/17 07:26 White Blood Count 8.0 TH/MM3 (4.0-11.0) Red Blood Count 4.50 MIL/MM3 (4.50-5.90) Hemoglobin 13.9 GM/DL (13.0-17.0) Hematocrit 41.1 % (39.0-51.0) Mean Corpuscular Volume 91.3 FL (80.0-100.0) Mean Corpuscular Hemoglobin 31.0 PG (27.0-34.0) Mean Corpuscular Hemoglobin Concent 33.9 % (32.0-36.0) Red Cell Distribution Width 13.7 % (11.6-17.2) Platelet Count 207 TH/MM3 (150-450) Mean Platelet Volume 7.4 FL (7.0-11.0) Neutrophils (%) (Auto) 74.1 % (16.0-70.0) Lymphocytes (%) (Auto) 19.1 % (9.0-44.0) Monocytes (%) (Auto) 6.3 % (0.0-8.0) Eosinophils (%) (Auto) 0.2 % (0.0-4.0) Basophils (%) (Auto) 0.3 % (0.0-2.0) Neutrophils # (Auto) 6.0 TH/MM3 (1.8-7.7) Lymphocytes # (Auto) 1.5 TH/MM3 (1.0-4.8) Monocytes # (Auto) 0.5 TH/MM3 (0-0.9) Eosinophils # (Auto) 0.0 TH/MM3 (0-0.4) Basophils # (Auto) 0.0 TH/MM3 (0-0.2) CBC Comment DIFF FINAL Differential Comment Prothrombin Time 11.1 SEC (9.8-11.6) Prothromb Time International Ratio 1.1 RATIO Activated Partial Thromboplast Time 25.7 SEC (24.3-30.1) Blood Urea Nitrogen 22 MG/DL (7-18) Creatinine 1.08 MG/DL (0.60-1.30) Random Glucose 96 MG/DL (74-106) Calcium Level 8.7 MG/DL (8.5-10.1) Sodium Level 139 MEQ/L (136-145) Potassium Level 3.9 MEQ/L (3.5-5.1) Chloride Level 106 MEQ/L (98-107) Carbon Dioxide Level 25.5 MEQ/L (21.0-32.0) Anion Gap 8 MEQ/L (5-15) Estimat Glomerular Filtration Rate 82 ML/MIN (>89) Result Diagram: 08/12/17 0726 08/12/17 0726 Ana Rosa Nichole Aug 12, 2017 12:20
--- NOTE | 2017-08-12 12:43 | RADRPT ---
EXAM DATE: 08/12/2017 12:27 PM EDT AGE/SEX: 67 years / Male INDICATIONS: Evaluate for pneumonia, pneumothorax, or any communicable disease. Pre op CABG. CLINICAL DATA: This is the patient's initial encounter. Patient reports that signs and symptoms have been present for 1 day and indicates a pain score of 0/10. MEDICAL/SURGICAL HISTORY: . Hypertension. Spinal stenosis. None. COMPARISON: [facility], CHEST SINGLE AP, 01/21/2015. . FINDINGS: The heart is mildly enlarged, similar to 2014. The lungs are symmetrically aerated; no focal infiltra daniel seen. No evidence of pneumothorax. Both hemidiaphragms well delineated. CONCLUSION: The lungs are clear. Stable cardiomegaly. Electronically signed by: Robin Dyer MD 08/12/2017 12:42 PM EDT
[2017-08-12 12:50] LABS: BILIRUBIN, URINE NEG (NEG); BLOOD, URINE SMALL (NEG); GLUCOSE,URINE NEG (NEG); KETONE, URINE NEG (NEG); NITRITE,URINE NEG (NEG); SQUAMOUS EPITHELIAL CELL URINE <1 /hpf (0-5); URINE COLOR Straw (YELLW/STRAW); URINE LEUKOCYTE ESTERASE NEG (NEG)
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
[2017-08-12 14:53] LABS: ALBUMIN 4.1 GM/DL (3.4-5.0); ALKALINE PHOSPHATASE 78 U/L (45-117); ALT (GPT) 24 U/L (12-78); AST (GOT) 17 U/L (15-37); DIRECT BILIRUBIN ADULT 0.1 MG/DL (0.0-0.2); INDIRECT BILIRUBIN 0.3 MG/DL (0.0-0.8); TOTAL BILIRUBIN ADULT 0.4 MG/DL (0.2-1.0); TOTAL PROTEIN 7.9 GM/DL (6.4-8.2)
[2017-08-12 15:12] LABS: HEMOGLOBIN A1C 5.5 % (4.3-6.0)
--- NOTE | 2017-08-12 15:49 | RADRPT ---
EXAM DATE: 08/12/2017 3:45 PM EDT AGE/SEX: 67 years / Male INDICATIONS: Pre op cardiac surgery. CLINICAL DATA: This is the patient's subsequent encounter. Patient reports that signs and symptoms h ave been present for 1 day and indicates a pain score of 0/10. MEDICAL/SURGICAL HISTORY: Hypercholesterolemia. Hypertension. Diverticulitis. NC. Afib. Back problems. Pulmonary embolism. Inguinal hernia. Appendectomy. Right leg surgery. Wound vac. COMPARISON: No prior exams available for comparison. TECHNIQUE: Venous ultrasound of both lower extremities was performed from the inguinal ligament to t he proximal calf. Real-time, color Doppler and spectral tracing, compression and augmentation techni ques were used. FINDINGS: Right Leg: Normal compression of the deep venous system from the inguinal region to the proximal silvio f. No echogenic clot is seen. Normal response of the venous system to augmentation and respiration. Left Leg: Normal compression of the deep venous system from the inguinal region to the proximal calf . No echogenic clot is seen. Normal response of the venous system to augmentation and respiration. CONCLUSION: Negative for deep venous thrombosis. Jason Santiago MD FACR Electronically signed by: Jason Santiago MD 08/12/2017 3:47 PM EDT
--- NOTE | 2017-08-12 15:53 | RADRPT ---
EXAM DATE: 08/12/2017 3:49 PM EDT AGE/SEX: 67 years / Male INDICATIONS: PreOp cardiac surgery. CLINICAL DATA: This is the patient's initial encounter. Patient reports that signs and symptoms have been present for 1 day and indicates a pain score of 0/10. MEDICAL/SURGICAL HISTORY: Hypercholesterolemia. Hypertension. Diverticulitis. MD. Afib. Back problems. Pulmonary embolism. Inguinal hernia. Appendectomy. Right leg surgery. Wound vac. COMPARISON: No prior exams available for comparison. MEASUREMENTS: RIGHT THIGH: Proximal:__5 mm Mid:__ 2 mm Distal:__2 mm LEFT THIGH: Proximal:__5 mm Mid:__Non-visualized Distal:__2 mm RIGHT CALF: Proximal:__Non-visualized Mid:__Non-visualized Distal:__Non-visualized LEFT CALF: Proximal:__Non-visualized Mid:__Non-visualized Distal:__Non-visualized FINDINGS: The venous system of the lower extremities are patent by color Doppler imaging. Measurements of the leg veins (in mm) are listed above. CONCLUSION: 1. Venous mapping as above Electronically signed by: Jason Santiago MD 08/12/2017 3:52 PM EDT
--- NOTE | 2017-08-12 16:04 | RADRPT ---
EXAM DATE: 08/12/2017 3:55 PM EDT AGE/SEX: 67 years / Male INDICATIONS: Pre op cardiac surgery. CLINICAL DATA: This is the patient's initial encounter. Patient reports that signs and symptoms have been present for 1 day and indicates a pain score of 0/10. MEDICAL/SURGICAL HISTORY: Hypercholesterolemia. Diverticulitis. Hypertension. RI. Afib. Back problems. Pulmonary embolism. Inguinal hernia. Appendectomy. Right leg surgery. Wound vac. COMPARISON: No prior exams available for comparison. VELOCITY PARAMETERS: ICA/CCA Ratio: Right 1.1 , Left 0.6 ICA: Right 98 cm/sec, Left 71 cm/sec CCA: Right 86 cm/sec, Left 116 cm/sec ECA: Right 137 cm/sec, Left 96 cm/sec Vertebral: Right 133 cm/sec antegrade, Left 13 cm/sec antegrade FINDINGS: RIGHT CAROTID: There is no evidence for a hemodynamically significant carotid stenosis. Minimal int imal hyperplasia is present with scattered calcific plaque. LEFT CAROTID: There is no evidence for a hemodynamically significant carotid stenosis. Minimal inti mal hyperplasia is present with scattered calcific plaque. Flow is antegrade in both vertebral arteries. There are no ancillary masses or adenopathy. CONCLUSION: Negative examination for a hemodynamically significant carotid stenosis. Jason Santiago MD FACR Electronically signed by: Jason Santiago MD 08/12/2017 4:03 PM EDT
--- NOTE | 2017-08-12 16:38 | ECHRPT ---
Indication: CORONARY ATHEROSCLEROSIS CONCLUSIONS The left ventricular systolic function is normal with an estimated ejection fraction in the range of 60-65%. Normal left ventricular size. Moderate concentric left ventricular hypertrophy. No regional wall motion abnormalities are present. The left atrial size is mildly dilated. Mild thickening of the mitral valve leaflets. Mitral annular calcification is present. Aortic valve sclerosis is present. The pulmonary valve is not well visualized. very technically limited BP: / HR: Rhythm: Sinus MEASUREMENTS (Male / Female) Normal Values Technical Quality:Technically difficult study 2D ECHO LV Diastolic Diameter PLAX 4.9 cm 4.2 - 5.9 / 3.9 - 5.3 cm LV Systolic Diameter PLAX 3.4 cm IVS Diastolic Thickness 1.3 cm 0.6 - 1.0 / 0.6 - 0.9 cm LVPW Diastolic Thickness 1.3 cm 0.6 - 1.0 / 0.6 - 0.9 cm LV Relative Wall Thickness 0.5 LA Systolic Diameter LX 4.3 cm 3.0 - 4.0 / 2.7 - 3.8 cm M-MODE Aortic Root Diameter MM 2.6 cm LA Systolic Diameter MM 4.3 cm LA Ao Ratio MM 1.7 AV Cusp Separation MM 1.6 cm DOPPLER AV Peak Velocity 181.0 cm/s AV Peak Gradient 13.1 mmHg LVOT Peak Velocity 118.0 cm/s LVOT Peak Gradient 5.6 mmHg MV Area PHT 3.7 cm Mitral E Point Velocity 103.0 cm/s Mitral A Point Velocity 115.0 cm/s Mitral E to A Ratio 0.9 LV E' Lateral Velocity 7.3 cm/s Mitral E to LV E' Lateral Ratio 14.1 LV E' Septal Velocity 7.3 cm/s Mitral E to LV E' Septal Ratio 14.1 PV Peak Velocity 103.0 cm/s PV Peak Gradient 4.2 mmHg FINDINGS LEFT VENTRICLE The left ventricular systolic function is normal with an estimated ejection fraction in the range of 60-65%. Normal left ventricular size. Moderate concentric left ventricular hypertrophy. No regional wall motion abnormalities are present. RIGHT VENTRICLE Normal right ventricular size and systolic function. LEFT ATRIUM The left atrial size is mildly dilated. RIGHT ATRIUM The right atrial size is normal. ATRIAL SEPTUM Normal atrial septal thickness without atrial level shunting by limited color doppler interrogation. AORTA The aortic root and proximal ascending aorta are normal in size on limited imaging. MITRAL VALVE Mild thickening of the mitral valve leaflets. Mitral annular calcification is present. AORTIC VALVE Trileaflet aortic valve. Aortic valve sclerosis is present. TRICUSPID VALVE Structurally normal tricuspid valve. No tricuspid valve stenosis or regurgitation. PULMONARY VALVE The pulmonary valve is not well visualized. VESSELS The inferior vena cava is normal in size. PERICARDIUM No pericardial effusion. Augustin Zurita MD, FACC, [facility] [place] (Electronically Signed) Final Date:12 August 2017 16:36
--- NOTE | 2017-08-12 20:16 | EKG ---
Date Performed: 08/12/2017 Time Performed: 07:35:46 PTAGE: 67 years EKG: Sinus bradycardia. Extensive T wave changes Abnormal ECG PREVIOUS TRACING : 05/03/2017 23.44 Compared to previous tracing, rate slower DOCTOR: Scot Burns Interpretating Date/Time 08/12/2017 20:14:40
--- NOTE | 2017-08-13 | MA ---
cc: Ketan Young DO DATE: 08/12/2017 PROCEDURE: Left heart catheterization, coronary angiogram, moderate sedation 60 minutes, IVUS left main, Angio-Seal femoral closure. PREPROCEDURE DIAGNOSIS: Preoperative cardiovascular exam (intermediate risk), abnormal stress test (intermediate risk). POSTPROCEDURE DIAGNOSIS: Multivessel coronary artery disease/left main disease (4.6 mm2 by IVUS). MEDICATIONS: Versed 0.5 mg, fentanyl 75 mcg, Zofran 4 mg, heparin 11,600 units, nitroglycerine 200 mcg. CONTRAST USED: 150 mL FLUOROSCOPY: 18.6 minutes. MODERATE SEDATION: 60 minutes. FRAILTY SCORE: Three. ESTIMATED BLOOD LOSS: 10 mL PROCEDURAL SUMMARY: Mason Chicas is a pleasant 67-year-old male who I see in the office and was undergoing evaluation for possible cataract surgery. He previously had an abnormal stress test and due to his abnormal EKG as well as the abnormal stress test, he was recommended cardiac catheterization. Risks, benefits and alternatives were explained to him, he consented to such. He was brought to the lab and prepped in the usual sterile fashion. The right radial artery was accessed using modified Seldinger technique and placement of a 5/6 Nigerian slender sheath. This was easily aspirated and flushed. A JR4 was advanced over a J-wire to the ascending aorta and across the aortic valve for measurement of left ventricular pressure. This was pulled back across the aortic valve, showing no significant gradient of aortic stenosis. The JR4 was unable to cannulate the RCA and so this was exchanged out for a JL3.5, which was used for selective angiography of the left coronary artery system. JL3.5 was removed over a J-wire and I attempted to cannulate the right coronary artery with an AR mod, but due to significant tortuosity above, was unable to and so right femoral artery access was obtained and placement of a 6-Nigerian sheath. AR mod was advanced over J-wire and used for selective angiography of the right coronary artery system. Due to the concern for left main disease, I felt that this needed to be further investigated. A JR4 was advanced over a J-wire to the ascending aorta, but I was unable to cross the valve or cannulate the right coronary artery with it. This was exchanged out for a JL3.5, which was used for selective angiography of the left coronary artery system. An AR mod was attempted to cannulate the right coronary artery, but was unable to and so right femoral artery access was obtained and placement of a 6-Nigerian sheath. This was easily aspirated and flushed. An AR mod was advanced across the aortic valve for measurement of left ventricular pressure. This was pulled back across the valve, showing no significant gradient of aortic stenosis. The AR mod was used for selective angiography of the right coronary artery system. Due to the significance of disease noted in the left main, I felt that this needed to be further evaluated with IVUS. An EBU 3.5 guide was engaged in the left main. The patient was given heparin as an anticoagulant. A Stout wire was advanced down the LAD. IVUS catheter was advanced into the LAD and recordings were done on pullback throughout the LAD and into the left main. Review of the images show ostial left main is calcified significantly with an area of 4.6 mm2. Wire and guide were removed. Right femoral arteriotomy was closed with an Angio-Seal. A radial band was placed over the arteriotomy site for hemostasis. The patient left the laboratory tech cardiovascularly stable. FINDINGS: Left main overall short vessel with 70% stenosis at the ostial portion (IVS 4.6 mm2). It bifurcates into an LAD and circumflex. LAD 10-20% disease throughout the proximal portion. Mid portion has a 30% lesion and distally has no significant disease. It gives off 2 major diagonals, with no significant disease. Left circumflex, normal-sized vessel with 70% disease throughout the ostial and proximal portion. It gives off 2 major obtuse marginals with the first one being overall small and a second one being a larger vessel, with a 70% lesion in the distal portion and past this a 90% lesion in the bifurcation into an upper and lower branch, which is overall 1 mm at the most and covers very small amount of myocardium. RCA, anterior takeoff. Significant tortuosity throughout, but no significant disease noted. LVEDP 25. IMPRESSION: 1. Preoperative cardiovascular exam (intermediate risk). 2. Abnormal stress test (intermediate risk). 3. Coronary artery disease with left main disease (4.6 mm2). RECOMMENDATIONS: 1. Mr. Chicas underwent cardiac catheterization and he was found to have significant left main disease and he will be recommended coronary artery bypass grafting. 2. He will be seen by CT surgery for further recommendations. 3. Overall, I believe that he is hemodynamically and electrically stable, without significant chest pain at this time and may go home and come back electively. I discussed with him if he has any further chest pains, he needs to come back to the emergency room immediately. Thank you for allowing me to see Gerson Chicas. If there are any questions, please do not hesitate to call. DO DANIEL Durán/REJI , 10:56 PM , 11:59 PM MISSY
== END 2017-08-12 16:25 | disposition home or self-care (01) ==
LOC: HCAT 06:37 → HDIC 06:44 → HCAT 16:25
PROVIDERS: ATTEND Nuclear Medicine Nuclear Cardiology
DX: I25.10 Atherosclerotic heart disease of native coronary artery without angina pectoris (principal); I12.9 Hypertensive chronic kidney disease with stage 1 through stage 4 chronic kidney disease, or unspecified chronic kidney disease; N18.2 Chronic kidney disease, stage 2 (mild); E78.5 Hyperlipidemia, unspecified; M54.9 Dorsalgia, unspecified; G89.29 Other chronic pain; E78.00 Pure hypercholesterolemia, unspecified; I48.91 Unspecified atrial fibrillation; Z86.711 Personal history of pulmonary embolism; Z87.11 Personal history of peptic ulcer disease; R06.02 Shortness of breath; Z95.1 Presence of aortocoronary bypass graft; Z79.82 Long term (current) use of aspirin; Z87.891 Personal history of nicotine dependence; Z01.818 Encounter for other preprocedural examination
CPT/HCPCS: 71045; 80048; 80076; 81001; 83036; 85002; 85025; 85610; 85730; 86850; 86900; 86901; 87641; 92978; 93005; 93306; 93458; 93880; 93970; 93998; 94010; 99152; 99153; C1753; C1760; C1769; C1887; C1893; G0269; J1644; J2250; J2405; J3010; J7030; Q9967

== ENCOUNTER 2017-08-26 05:08 | Inpatient (IN) ==
[~2017-08-26 05:08] MED LIST changes: -AMLO10 PO; -ASPI1TAB57 PO; -CYCL10TA PO; +Calcium Chloride Inj 1 GM/10 ML Syringe IV.PUSH ONE; -HYDR-3516 PO; -HYDR25TA5 PO; -LISI-515 PO; +Metoprolol Tartrate 25 MG Tablet PO SCH; -NEUR300C PO; -OMEP40CA2 PO; -PRED20 PO; -ROBA500T PO; +Sodium Bicarbonate 8.4% Inj 50 MEQ/50 ML Syringe IV.CONT ONE
[2017-08-26] MEDS ORDERED: Insulin Regular (For Infusion) 100 UNIT in Sodium Chlor 0.9% Inj 99 ML IV.CONT PRN ×2 (05:39→11:06)
[2017-08-26] MEDS ORDERED: Sodium Chlor 0.9% Inj 77.5 ML, Papaverine Inj 60 MG, Nitroglycerin Inj 100 MCG, dilTIAZ... IRRIGATION SCH ×3 (05:45)
[2017-08-26] MEDS ORDERED: Sodium Chloride 0.9% Irr Bot 500 ML, ceFAZolin Inj 500 MG IRRIGATION SCH ×2 (05:45)
[2017-08-26] MEDS ORDERED: Chlorhexidine 4% Topical 120 APPLIC/120 ML Bottle TOPICAL SCH (05:45)
[2017-08-26] MEDS ORDERED: ceFAZolin Inj 2,000 MG in Sodium Chlor 0.9% Inj 80 ML IV.SIG SCH ×2 (06:00→14:00)
[2017-08-26] MEDS ORDERED: Sodium Chlor 0.9% Inj 500 ML IV.SIG SCH (06:00)
[2017-08-26] MEDS ORDERED: Chlorhexidine Gluconate 2% 1 Pack (2 Cloths) TOPICAL SCH (06:00)
[2017-08-26] MEDS ORDERED: Metoprolol Tartrate 25 MG Tablet PO SCH (06:00)
[2017-08-26] MEDS ORDERED: PAPAVERINE IRRIGATION SCH ×3 (06:00)
[2017-08-26] MEDS ORDERED: NITROGLYCERIN IRRIGATION SCH ×3 (06:00)
[2017-08-26] MEDS ORDERED: [UNRECOGNIZED DRUG - OTHER] IRRIGATION SCH ×3 (06:00)
[2017-08-26] MEDS ORDERED: SODIUM CHLOR 0.9% IRRIGATION SCH ×3 (06:00)
[2017-08-26] MEDS ORDERED: Sodium Chlor 0.9% Inj 57.5 ML, Papaverine Inj 60 MG, Nitroglycerin Inj 100 MCG, Verapam... IRRIGATION SCH ×3 (06:15)
[2017-08-26] MEDS ORDERED: Heparin - SQ 10,000 UNITS/ML Vial SQ ONE ×2 (06:48→12:00)
[2017-08-26] MEDS ORDERED: ceFAZolin 2 GM Premix Inj 0 GM/0 ML PIGGYBACK IV.SIG ONE (06:49)
[2017-08-26] MEDS ORDERED: Dexmedetomidine Inj 200 MCG/50 ML INFUS..BTL IV.CONT PRN (11:06)
[2017-08-26] MEDS ORDERED: Morphine Sulfate Inj 2 MG/ML Vial IV.PUSH PRN (11:06)
[2017-08-26] MEDS ORDERED: hydrALAZINE HCl Inj 20 MG/ML Vial IV.PUSH PRN (11:06)
[2017-08-26] MEDS ORDERED: Post-op Orders (for Pharmacy) OTHER STA (11:06)
[2017-08-26] MEDS ORDERED: Acetaminophen 650 MG Supp RECTAL PRN (11:06)
[2017-08-26] MEDS ORDERED: Ketorolac Inj 30 MG/ML (IVP) Vial IV.PUSH PRN (11:06)
[2017-08-26] MEDS ORDERED: RESP: Racemic Epinephrine 2.25% 0.5 ML Neb NEB SCH (11:06)
[2017-08-26] MEDS ORDERED: Acetaminophen 325 MG Tablet PO PRN (11:06)
[2017-08-26] MEDS ORDERED: Dextrose 50% in Water 50 ML Vial IV.PUSH PRN (11:06)
[2017-08-26] MEDS ORDERED: Potassium Chlor 20 mEq Premix 20 MEQ/100 ML PIGGYBACK IV.SIG PRN ×2 (11:06)
[2017-08-26] MEDS ORDERED: Phenylephrine Inj 40 MG in Sodium Chlor 0.9% Inj 496 ML IV.CONT PRN (11:06)
[2017-08-26] MEDS ORDERED: Albumin Human 5% Inj 250 ML IV.SIG PRN (11:06)
[2017-08-26] MEDS ORDERED: Calcium Chloride Inj 1 GM/10 ML Syringe IV.PUSH PRN (11:06)
[2017-08-26] MEDS ORDERED: Magnesium Sulfate Inj 2 GM in Sodium Chlor 0.9% Inj 96 ML IV.SIG PRN ×4 (11:06)
--- NOTE | 2017-08-26 11:33 | P.OP ---
Date of procedure: 08/26/17 Surgeon: Macey Vargas MD Operation and Findings: PREPROCEDURE DIAGNOSES 1. Severe Multi Vessel Coronary Artery Disease. 2. Atrial fibrillation 3. Left main coronary artery disease POSTPROCEDURE DIAGNOSES Same SURGICAL PROCEDURE 1. Off-pump Coronary Artery Bypass Grafting x 2 with Left Internal Mammary Artery (DAWKINS) to Left Anterior Descending (LAD), reverse saphenous vein graft to Obtuse Marginal branch of the Left Circumflex artery 2. Left leg Endoscopic Vein [place] 3. Left atrial appendage excision 4. Synchronized cardioversion 3 5. Intraoperative Vein Mapping. SURGEON Macey Vargas MD EMPLOYMENT CLERK PAOLO Dangelo, PEER EDUCATOR FA ANESTHESIA General endotracheal WICK AND BASE ASSEMBLER Bianca Hansen, PAUL Puckett MD PREPARATION Chlora[employer]. COUNTS Needle, sponge, and instrument counts were correct. DRAINS Two 32-Japanese mediastinal tubes. COMPLICATIONS None. INDICATIONS FOR PROCEDURE The patient is a 67-year-old presenting with chest pain. Patient was noted to have left main coronary artery disease. The patient is being brought to the operating room for surgical revascularization therapy. PROCEDURE Patient was brought to the operating room and placed supine on the OR table. Following the induction of adequate general endotracheal anesthesia and placement of appropriate monitoring devices, intraoperative vein mapping was performed which revealed usable-caliber conduit in the left thigh. The patient was then prepped and draped in standard sterile fashion. Next, 2500 units of intravenous heparin was given. The left greater saphenous vein was harvested endoscopically. This appeared to be a useable-caliber conduit. Simultaneously, a median sternotomy was performed and the left internal mammary artery dissected free off the posterior sternal table. The patient was systemically heparinized and anticoagulation monitored by serial ACT measurements. The internal mammary artery had excellent pulsatile flow in it and was a good- caliber conduit. The pericardium was then divided in the midline, the cradle created and targets analyzed. At this point, all anastomoses were performed in a beating-heart fashion using the [employer] stabilizing system. The left internal mammary artery was anastomosed to the mid LAD (2.5 mm) in an end-to-side fashion using 7-0 Prolene. Segment of saphenous vein graft was then anastomosed to the OM1 (2.25 mm) in an end-to-side fashion using 7-0 Prolene. The proximal anastomosis was then constructed to the ascending aorta in a running manner using 6-0 Prolene. All anastomotic sites were inspected and appeared to be hemostatic and patent. The left atrial appendage was then excised using a surgical stapler and was sent as a specimen. Synchronized cardioversion was attempted 3. Each time the patient converted to a normal sinus rhythm, however , shortly thereafter went back into atrial fibrillation. Protamine solution was given. Strict hemostasis was assured. The closure was undertaken. 2 chest tubes were placed. The pericardium was reapproximated in the midline. The sternum was approximated using sternal wires. The muscular and fascial layer were then closed in 3 layers. The endoscopic vein harvest site was closed in 2 layers. The patient tolerated the procedure well and was transferred to CVICU in stable condition.
[2017-08-26] MEDS ORDERED: Normosol-R pH 7.4 Inj 2,000 ML IV.CONT ONE (12:00)
[2017-08-26] MEDS ORDERED: Propofol Inj 500 MG/50 ML Vial IV.PUSH ONE (12:00)
[2017-08-26] MEDS ORDERED: Sodium Chlor 0.9% Inj 200 ML IV.SIG ONE (12:00)
[2017-08-26] MEDS ORDERED: Sodium Chlor 0.9% Inj 500 ML IV.SIG ONE (12:00)
[2017-08-26] MEDS ORDERED: Sodium Chlor 0.9% Inj 250 ML IV.SIG ONE (12:00)
[2017-08-26] MEDS ORDERED: Phenylephrine/NS 1000 MCG/10ML Syringe IV.PUSH ONE (12:00)
[2017-08-26] MEDS ORDERED: Glycopyrrolate 0.2 MG/ML Vial IV.PUSH ONE (12:00)
[2017-08-26] MEDS ORDERED: Protamine Sulfate Inj 250 MG/25 ML Vial IV.CONT ONE (12:00)
[2017-08-26] MEDS ORDERED: Dexmedetomidine Inj 200 MCG/2 ML Vial IV.CONT ONE (12:00)
[2017-08-26] MEDS ORDERED: fentaNYL Citrate Inj 250 MCG/5 ML Ampul ONE (12:06)
[2017-08-26] MEDS ORDERED: EPINEPHrine (1:1000) Inj 2 MG in Sodium Chlor 0.9% Inj 248 ML IV.CONT PRN (12:11)
[2017-08-26] MEDS ORDERED: Clevidipine Inj 25 MG/50 ML VIAL ONE (12:14)
[2017-08-26] MEDS ORDERED: Midazolam Inj 5 MG/ML 1 ML Vial ONE (12:16)
[2017-08-26] MEDS ORDERED: Calcium Chloride Inj 1 GM in Sodium Chlor 0.9% Inj 100 ML IV.SIG PRN (12:30)
--- NOTE | 2017-08-26 12:46 | P.PNCA ---
- Note Subjective/Hospital Course: 67-year-old black male, initially seen 08/12/17 with history of recent abnormal EKG, history of atrial fibrillation, hyperlipidemia, hypertension, presented to Dr. Young's office for a followup visit. Had been complaining of some shortness of breath with walking in the backyard, feeding his dogs with minimal exertion. No chest pain. His EKG apparently showed some Q-waves in the inferior leads. Therefore, he underwent cardiac catheterization today by Dr. Young with normal EF of 60%, left main disease of 70%, mid distal 30%. The circumflex was 80%, the OM 90%. We were consulted to evaluate for coronary artery bypass grafting. PAST MEDICAL HISTORY: Includes a history of atrial fibrillation, coronary artery disease, carotid artery stenosis, chronic kidney disease stage II, hyperlipidemia, hypertension, chronic back pain, peptic ulcer in the past. 08/26 electively admitted for surgery surgery: 1. Off-pump Coronary Artery Bypass Grafting x 2 with Left Internal Mammary Artery (DAWKINS) to Left Anterior Descending (LAD), reverse saphenous vein graft to Obtuse Marginal branch of the Left Circumflex artery, 2. Left leg Endoscopic Vein [place], 3. Left atrial appendage excision, 4. Synchronized cardioversion 3 Objective: Vital Signs - 24 hr 08/26/17 06:48 Temperature 99.0 F Pulse Rate 74 Respiratory Rate 16 Blood Pressure 152/89 H Pulse Oximetry 99 Labs: Laboratory Results - last 12 hr 08/26/17 06:35 Blood Type A Positive Antibody Screen Negative MTS Gel Crossmatch See Detail - Plan (4) Carotid artery stenosis (5) Chronic kidney disease (4) Carotid artery stenosis Qualifiers: Laterality: bilateral Qualified Code(s): I65.23 - Occlusion and stenosis of bilateral carotid arteries (5) Chronic kidney disease Qualifiers: Chronic kidney disease stage: stage 3 (moderate) Qualified Code(s): N18.3 - Chronic kidney disease, stage 3 (moderate)
--- NOTE | 2017-08-26 12:49 | P.DCO ---
- Speech Therapy Instructions: PREVENA Single Use Negative Wound Therapy System Caregiver Instruction Sheet 1. A Prevena dressing system was applied to the chest incision during surgery , to promote wound healing. It works via a suction device (negative pressure wound therapy) to remove low to moderate levels of exudate (drainage) and infectious materials. We recommend that the device stay in place for up to seven days, from day of surgery. 2. Day of Surgery____/01/03 Day of Removal / 3. The dressing should only be removed by a health home care specialist. Please arrange removal of device to coincide with Home Health visit and or with Nursing staff at Rehab 4. If skin reddening or irritation of skin occurs, or excessive drainage, please notify the Cardiovascular Surgeons office at [phone]. 5. Light showering is permissible; however the pump should be disconnected and placed in safe location, where it will not get wet. The dressing should not be exposed to direct spray or submerged in water. No bath tub / shower only. Ensure the end of the tubing attached to the dressing is facing down so that water does not enter the top of the tube. 6. To remove Prevena dressing: press purple button to turn off device / remove the suction. Then disconnect the tubing from the pump. The fixation strips should be stretched away from the skin and the dressing lifted at one corner and peeled back until it has been fully removed. 7. After removal, it is ok to shower daily using liquid dial soap and clean wash cloth, rinse and pat dry, and leave incision open to air dry. For any concerns regarding Prevena dressing, and or wounds, please contact Laureen Galaviz, patient navigator at [phone] or notify the Cardiovascular Surgeons office at [phone]. Incentive spirometry Q1 hr x 10, while awake, also use acapella device hourly whole awake Sternal Breast Bone Precautions: NO pushing or pulling, ( pt must use sternal pillow to support chest with all activities and with coughing ( takes up to 3 months breast bone to heal ) Daily incision care: ok to shower daily, no tub bath. Wash all incisions with liquid dial soap, clean wash cloth to each site, rinse and pat dry. Observe for any signs of infection, such as drainage which is dark yellow, kline, green or foul smelling. Immediately report to the surgeon any drainage from the chest incision, or legs, and for any abnormal drainage from the chest tube sites. Notify surgeon if any temp >101.5 degrees F. When specialty dressing removed/ or if you do not have one, continue to shower daily as above, then rinse and pat incision dry and paint with betadine daily x 5 days. Allow steri strips to fall off if you have any. Avoid lotions, creams, salves, oils, etc. for the first month Please see attached forms for additional instructions regarding post Open Heart specialty wound vacuum dressings. MILIND or Prevena , Dressing to be removed by Nursing staff on _09/02/17 F/U appointment: as per MS instructions: PCP in 2 weeks, CV surgeon 2 weeks, Brush Cleaner 3-4 weeks For any questions regarding incisions/ dressing / meds / post op care or above Symptoms, Thursday 8am-5pm Heart & Vascular Surgery Office ( Dr. Vargas & Dr. Santiago), After Hours / Nights (5pm -8am) Weekends and Holidays Please call [facility] Cardiac Intermediate [facility] Unit ([facility]) Charge Nurse - [facility] Nursing Order: Wound care and dressing changes, Nursing assessment with vital signs Instructions: Heart and Vascular Surgery patients *Special attention to sternal dressing Mandatory frequency Assess and evaluation, 4 days in a row The next week 3X week 2 times a week for 4 weeks 1 time a week for 5 weeks Schedule Heart and Vascular patients for full 60 day certification period Initial visit Review Open Heart Surgery Discharge Instructions (Sternal precautions, Activity, Elastic hose, Incision care, Driving, Incentive spirometry, Smoking, [place], Work and other) Need Betadine to paint incision Medication reconciliation Importance of follow up care/ check on appointments Make calendar record temperature daily When to call [facility] nurse, review instructions, phone list Incentive Spirometry, demonstration Visit 1- Begin discharge instruction for patient family and/ or caregiver using teach back method- Signs and symptoms of infection Disease characteristics Medicines and side effects Foods and nutrition/ appetite Infection control/ hand washing/ hygiene Visit 2- Continue teaching Discharge instructions- include additional information on smoking cessation , sternal dressing (sternal vac) Visit 3- Continue teaching- Cough and deep breathing, incision monitoring. Choose my plate Visit 4- Continue teaching- Discuss limitations Discuss how they are feeling Discuss progress toward goals Remaining visits- continue teaching and monitoring For any questions please call : Thursday 8am-5pm Heart & Vascular Surgery Office ( Dr. Vargas & Dr. Santiago), After Hours / Nights (5pm -8am) Weekends and Holidays Please call [facility] Cardiac Intermediate Care Unit ([facility]IC) Charge Nurse - Certification I have seen patient Mason Chicas on 08/26/17. My clinical findings support the need for the requested home health care services because: Deconditioned with increased weakness I certify that my clinical findings support that this patient is homebound because: Post-op weakness
--- NOTE | 2017-08-26 12:49 | XR ---
EXAM DATE: 08/26/2017 12:46 PM EDT AGE/SEX: 67 years / Male INDICATIONS: Post op CABG. CLINICAL DATA: This is the patient's subsequent encounter. Patient reports that signs and symptoms h ave been present for 1 day and indicates a pain score of Nonresponsive. MEDICAL/SURGICAL HISTORY: . Hypercholesterolemia. Hypertension. Diverticulitis. [place]. Afib. Pulmo nary embolism. . Inguinal hernia. Appendectomy. Right leg surgery. Wound vac. [place] [facility] [place]. . FINDINGS: Endotracheal tube in good position. NG enters stomach. Right central line in superior cava. Central a nd left chest tube present. No pneumothorax. Scattered subsegmental airspace disease in the lungs. No significant effusion. The thorax. CONCLUSION: Support apparatus as above. Scattered subsegmental airspace disease in the lungs. Electronically signed by: Quincy Botello MD 08/26/2017 12:48 PM EDT
[2017-08-26] MEDS ORDERED: PIGGYBACK IV.SIG ONE (13:19)
[2017-08-26] MEDS ORDERED: POTASSIUM CHLOR IV.SIG ONE (13:19)
[2017-08-26] MEDS: fentaNYL Citrate Inj 100 MCG/2 ML Ampul IV.PUSH PRN ×7 (14:12→23:25)
[2017-08-26] MEDS: Potassium Chlor 20 mEq Premix 20 MEQ/100 ML PIGGYBACK IV.SIG PRN ×2 (14:16→15:14)
[2017-08-26] MEDS: ceFAZolin 2 GM Premix Inj 2 GM/50 ML PIGGYBACK IV.SIG SCH (15:33)
[2017-08-26] MEDS ORDERED: ceFAZolin 2 GM Premix Inj 2 GM/100 ML BAG IV.SIG SCH (16:00)
[2017-08-26] MEDS: Clevidipine Inj 25 MG/50 ML VIAL IV.CONT PRN ×2 (17:24→23:29)
[2017-08-26] MEDS ORDERED: Amiodarone 200 MG Tablet PO SCH (21:00)
[2017-08-26] MEDS: Metoprolol Inj 5 MG/5 ML Vial IV.PUSH PRN ×2 (21:35→23:27)
[2017-08-27] MEDS: ceFAZolin 2 GM Premix Inj 2 GM/50 ML PIGGYBACK IV.SIG SCH ×3 (00:25→17:36)
[2017-08-27] MEDS: fentaNYL Citrate Inj 100 MCG/2 ML Ampul IV.PUSH PRN ×2 (02:53→07:41)
[2017-08-27 04:35] LABS: Hematocrit 35.5 % (39.0-51.0); Hemoglobin 12.3 gm/dL (13.0-17.0); Mean Corpuscular HGB Conc 34.6 % (32.0-36.0); Mean Corpuscular Hemoglobin 31.3 pg (27.0-34.0); Mean Corpuscular Volume 90.5 fL (80.0-100.0); Mean Platelet Volume 7.9 fL (7.0-11.0); Platelet Count 177 th/mm3 (150-450); Red Blood Count 3.92 mil/mm3 (4.50-5.90); White Blood Count 10.6 th/mm3 (4.0-11.0)
[2017-08-27 04:56] LABS: Anion Gap 8 meq/L (5-15); Blood Urea Nitrogen 12 mg/dL (7-18); Calcium 8.2 mg/dL (8.5-10.1); Carbon Dioxide 25.7 meq/L (21.0-32.0); Chloride 106 meq/L (98-107); Glomerular Filtration Rate Greater Than 89 mL/min (>89); Glucose,Random 101 mg/dL (74-106); Magnesium 2.2 mg/dL (1.5-2.5); Potassium 4.1 meq/L (3.5-5.1); Sodium 140 meq/L (136-145)
--- NOTE | 2017-08-27 05:15 | XR ---
EXAM DATE: 08/27/2017 4:57 AM EDT AGE/SEX: 67 years / Male INDICATIONS: Chest pain, Post CABG. CLINICAL DATA: This is the patient's subsequent encounter. Patient reports that signs and symptoms h ave been present for 2 days and indicates a pain score of 0/10. MEDICAL/SURGICAL HISTORY: Hypercholesterolemia. Hypertension. AR. Afib. Pulmonary embolism. C ABG. Inguinal hernia. Appendectomy. COMPARISON: [facility], CHEST 1V SINGLE AP, 08/26/2017. . FINDINGS: Stable ETT, right IJ central line and left sided chest tube. Interval removal of NGT and extubation. Lungs are hypoaerated with mild airspace disease in the left lung base. Cardiomediastinal contours ar e stable. Remainder of the exam is unchanged. CONCLUSION: 1. Patient has been extubated with NG tube removed. 2. Stable left-sided chest tube without significant pneumothorax. 3. Stable left lower lobe airspace disease, likely atelectasis. Electronically signed by: Freddy Evangelista MD 08/27/2017 5:13 AM EDT
[2017-08-27] MEDS ORDERED: Bisacodyl 10 MG Supp RECTAL PRN (08:48)
[2017-08-27] MEDS ORDERED: Dextrose 50% in Water 50 ML Vial IV.PUSH PRN (08:48)
[2017-08-27] MEDS ORDERED: Sod Phosphate/Sod Biphosphate (Adult) Enema 133 ML Bottle RECTAL PRN (08:48)
[2017-08-27] MEDS: Metoprolol Tartrate 25 MG Tablet PO SCH (11:36)
[2017-08-27] MEDS: Multivitamin/Minerals Therapeutic Tablet PO SCH (11:36)
[2017-08-27] MEDS: Insulin NovoLOG Aspart Correctional Sugar Inj SQ SCH ×3 (11:44→18:18)
--- NOTE | 2017-08-27 13:13 | ECG ---
Date Performed: 08/27/2017 Time Performed: 03:26:44 PTAGE: 67 years EKG: Atrial fibrillation with rapid ventricular response Inferior/lateral ST-T changes are nonsp ecific Compared to previous tracing atrial fib is new Clinical correlation is recommended Abnormal EC G PREVIOUS TRACING :08/12/17 DOCTOR: Jeremías Burger Interpretating Date/Time 08/27/2017 13:11:49
--- NOTE | 2017-08-27 13:54 | P.PNCA ---
- Note Subjective/Hospital Course: 67-year-old black male, initially seen 08/12/17 with history of recent abnormal EKG, history of atrial fibrillation, hyperlipidemia, hypertension, presented to Dr. Young's office for a followup visit. Had been complaining of some shortness of breath with walking in the backyard, feeding his dogs with minimal exertion. No chest pain. His EKG apparently showed some Q-waves in the inferior leads. Therefore, he underwent cardiac catheterization today by Dr. Young with normal EF of 60%, left main disease of 70%, mid distal 30%. The circumflex was 80%, the OM 90%. We were consulted to evaluate for coronary artery bypass grafting. PAST MEDICAL HISTORY: Includes a history of atrial fibrillation, coronary artery disease, carotid artery stenosis, chronic kidney disease stage II, hyperlipidemia, hypertension, chronic back pain, peptic ulcer in the past. 08/26 electively admitted for surgery surgery: 1. Off-pump Coronary Artery Bypass Grafting x 2 with Left Internal Mammary Artery (DAWKINS) to Left Anterior Descending (LAD), reverse saphenous vein graft to Obtuse Marginal branch of the Left Circumflex artery, 2. Left leg Endoscopic Vein [place], 3. Left atrial appendage excision, 4. Synchronized cardioversion 3 crystalloid 2500cc, 400cc EBL extubated after surgery , pt has some immediate postop labile BP requiring fluid bolus , and pressors resolved 08/27 weaning off uresing well start low dose BB pt converted to NSR early this am daily score 3 will discuss anticoagulation with Dr Young currently on plavix , ASA will transfer to stepdown Objective: Vital Signs - 24 hr 08/26/17 15:15 08/26/17 15:16 08/26/17 15:35 Temperature 97.5 F L Pulse Rate 110 H 108 H Respiratory Rate 22 25 H Blood Pressure 118/60 Pulse Oximetry 97 98 99 08/26/17 15:55 08/26/17 18:00 08/26/17 20:00 Temperature 98.9 F Pulse Rate 114 H 118 H Respiratory Rate 20 Blood Pressure 145/66 H Pulse Oximetry 94 L 95 08/26/17 21:43 08/27/17 00:00 08/27/17 03:57 Temperature 98.8 F Pulse Rate 74 112 H 120 H Respiratory Rate 20 16 22 Blood Pressure 138/65 Pulse Oximetry 98 95 97 08/27/17 04:00 08/27/17 05:00 08/27/17 05:30 Temperature 99.0 F Pulse Rate 121 H 92 H Respiratory Rate 18 Blood Pressure 125/65 Pulse Oximetry 95 94 L 08/27/17 07:26 08/27/17 08:00 08/27/17 08:24 Temperature 98.5 F Pulse Rate 93 H 82 Respiratory Rate 16 20 20 Blood Pressure 119/52 L Pulse Oximetry 96 97 08/27/17 09:00 08/27/17 10:59 08/27/17 12:00 Temperature 98.7 F Pulse Rate 80 102 H Respiratory Rate Blood Pressure 122/67 Pulse Oximetry 95 95 GENERAL: A&O x 3 SKIN: Warm and dry. prevena dressing to chest , incision intact left leg HEAD: Normocephalic. EYES: No scleral icterus. No injection or drainage. NECK: Supple, trachea midline. No JVD or lymphadenopathy. CARDIOVASCULAR: Regular rate and rhythm without murmurs, gallops, or rubs. RESPIRATORY: Breath sounds equal bilaterally. No accessory muscle use. chest tube in place to wall suction/ no air leak GASTROINTESTINAL: Abdomen soft, non-tender, nondistended. MUSCULOSKELETAL: No cyanosis, or edema. BACK: Nontender without obvious deformity. No CVA tenderness. Labs: Laboratory Results - last 12 hr 08/26/17 08/27/17 08/27/17 06:35 03:00 03:50 WBC 10.6 RBC 3.92 L Hgb 12.3 L Hct 35.5 L MCV 90.5 MCH 31.3 MCHC 34.6 RDW 14.0 Plt Count 177 MPV 7.9 Sodium Potassium Chloride Carbon Dioxide Anion Gap BUN Creatinine Estimated GFR POC Glucose 123 H Random Glucose Calcium Magnesium Blood Type A Positive Antibody Screen Negative MTS Gel Crossmatch See Detail 08/27/17 08/27/17 08/27/17 03:50 03:53 08:34 WBC RBC Hgb Hct MCV MCH MCHC RDW Plt Count MPV Sodium 140 Potassium 4.1 Chloride 106 Carbon Dioxide 25.7 Anion Gap 8 BUN 12 Creatinine 0.78 Estimated GFR Greater than 89 POC Glucose 101 132 H Random Glucose 101 Calcium 8.2 L Magnesium 2.2 Blood Type Antibody Screen MTS Gel Crossmatch 08/27/17 11:35 WBC RBC Hgb Hct MCV MCH MCHC RDW Plt Count MPV Sodium Potassium Chloride Carbon Dioxide Anion Gap BUN Creatinine Estimated GFR POC Glucose 127 H Random Glucose Calcium Magnesium Blood Type Antibody Screen MTS Gel Crossmatch Result Diagrams: 08/27/17 03:50 08/27/17 03:50 - Plan (1) CAD (coronary artery disease), [place] coronary artery (2) S/P CABG x 2 Plan: ASA, statin , bb OOB ambulate pulm toileting eval for rehab [place] [facility] (3) Atrial fibrillation Plan: converted to NSR Daily score 3discuss with Dr Young (4) Carotid artery stenosis (5) Chronic kidney disease Plan: stable (1) CAD (coronary artery disease), [place] coronary artery Qualifiers: [place] vs. transplanted heart: [place] heart (3) Atrial fibrillation Qualifiers: Atrial fibrillation type: paroxysmal Qualified Code(s): I48.0 - Paroxysmal atrial fibrillation (4) Carotid artery stenosis Qualifiers: Laterality: bilateral Qualified Code(s): I65.23 - Occlusion and stenosis of bilateral carotid arteries (5) Chronic kidney disease Qualifiers: Chronic kidney disease stage: stage 3 (moderate) Qualified Code(s): N18.3 - Chronic kidney disease, stage 3 (moderate)
--- NOTE | 2017-08-27 15:43 | P.DIET ---
Nutritional Evaluation Type of nutrition evaluation: initial [place] [facility] [place]: Diet Education Objective - Diagnosis CABG x 2 - Objective Dietitian Reviewed in Medical Record: Current diet, Labs Diet Order: 1800ADA [id number] Objective Comments: s/p CABG x 2(08/26) Assessment Assessment: Pt is s/p CABG x 2(08/26/17). Patient Navigator to provide education. Please Consult RD if complexities with diet education arise. Recommendations: 1. Patient Navigator to provide education 2.Please Consult RD if complexities with diet education arise
[2017-08-28] MEDS: ceFAZolin 2 GM Premix Inj 2 GM/50 ML PIGGYBACK IV.SIG SCH (00:09)
[2017-08-28] MEDS: Insulin NovoLOG Aspart Correctional Sugar Inj SQ SCH ×3 (02:00→05:08)
[2017-08-28] MEDS: Multivitamin/Minerals Therapeutic Tablet PO SCH (08:00)
[2017-08-28] MEDS: Polyethylene Glycol 3350 17 GM Packet PO SCH (08:02)
[2017-08-28 09:11] LABS: Hematocrit 38.4 % (39.0-51.0); Hemoglobin 12.9 gm/dL (13.0-17.0); Mean Corpuscular HGB Conc 33.5 % (32.0-36.0); Mean Corpuscular Volume 92.5 fL (80.0-100.0); Mean Platelet Volume 7.7 fL (7.0-11.0); Platelet Count 177 th/mm3 (150-450); Red Blood Count 4.15 mil/mm3 (4.50-5.90); Red Cell Distribution Width 13.8 % (11.6-17.2); White Blood Count 10.7 th/mm3 (4.0-11.0)
[2017-08-28 09:28] LABS: Anion Gap 8 meq/L (5-15); Blood Urea Nitrogen 14 mg/dL (7-18); Calcium 8.3 mg/dL (8.5-10.1); Carbon Dioxide 27.3 meq/L (21.0-32.0); Chloride 104 meq/L (98-107); Glomerular Filtration Rate Greater Than 89 mL/min (>89); Glucose,Random 118 mg/dL (74-106); Potassium 4.4 meq/L (3.5-5.1); Sodium 139 meq/L (136-145)
--- NOTE | 2017-08-28 16:45 | P.PNCA ---
- Note Subjective/Hospital Course: 67-year-old black male, initially seen 08/12/17 with history of recent abnormal EKG, history of atrial fibrillation, hyperlipidemia, hypertension, presented to Dr. Young's office for a followup visit. Had been complaining of some shortness of breath with walking in the backyard, feeding his dogs with minimal exertion. No chest pain. His EKG apparently showed some Q-waves in the inferior leads. Therefore, he underwent cardiac catheterization today by Dr. Young with normal EF of 60%, left main disease of 70%, mid distal 30%. The circumflex was 80%, the OM 90%. We were consulted to evaluate for coronary artery bypass grafting. PAST MEDICAL HISTORY: Includes a history of atrial fibrillation, coronary artery disease, carotid artery stenosis, chronic kidney disease stage II, hyperlipidemia, hypertension, chronic back pain, peptic ulcer in the past. 08/26 electively admitted for surgery surgery: 1. Off-pump Coronary Artery Bypass Grafting x 2 with Left Internal Mammary Artery (DAWKINS) to Left Anterior Descending (LAD), reverse saphenous vein graft to Obtuse Marginal branch of the Left Circumflex artery, 2. Left leg Endoscopic Vein [place], 3. Left atrial appendage excision, 4. Synchronized cardioversion 3 crystalloid 2500cc, 400cc EBL extubated after surgery , pt has some immediate postop labile BP requiring fluid bolus , and pressors resolved 08/27 weaning off uresing well start low dose BB pt converted to NSR early this am daily score 3 will discuss anticoagulation with Dr Young currently on plavix , ASA will transfer to stepdown 08/28 drained large amount of drainage from chest tube in past 24hrs, now trending down HGB stable, start eliquis when chest tube out remain in NSR Objective: Vital Signs - 24 hr 08/27/17 17:00 08/27/17 17:37 08/27/17 19:00 Temperature Pulse Rate 92 H Respiratory Rate 20 Blood Pressure Pulse Oximetry 96 08/27/17 20:00 08/27/17 21:20 08/27/17 23:00 Temperature 98.8 F Pulse Rate 95 H 92 H Respiratory Rate 18 18 Blood Pressure 133/95 H Pulse Oximetry 97 93 L 08/28/17 00:00 08/28/17 03:00 08/28/17 07:00 Temperature 98.8 F 98.6 F 98.2 F Pulse Rate 95 H 92 H 93 H Respiratory Rate 18 18 20 Blood Pressure 111/66 117/72 118/70 Pulse Oximetry 95 94 L 08/28/17 07:20 08/28/17 08:00 08/28/17 13:00 Temperature Pulse Rate 89 94 H Respiratory Rate 16 18 Blood Pressure Pulse Oximetry 97 94 L Labs: Laboratory Results - last 12 hr 08/28/17 08/28/17 08/28/17 05:08 08:54 08:54 WBC 10.7 RBC 4.15 L Hgb 12.9 L Hct 38.4 L MCV 92.5 MCH 31.0 MCHC 33.5 RDW 13.8 Plt Count 177 MPV 7.7 Sodium 139 Potassium 4.4 Chloride 104 Carbon Dioxide 27.3 Anion Gap 8 BUN 14 Creatinine 1.00 Estimated GFR Greater than 89 POC Glucose 76 Random Glucose 118 H Calcium 8.3 L Magnesium 08/28/17 08:54 WBC RBC Hgb Hct MCV MCH MCHC RDW Plt Count MPV Sodium Potassium Chloride Carbon Dioxide Anion Gap BUN Creatinine Estimated GFR POC Glucose Random Glucose Calcium Magnesium 2.4 Result Diagrams: 08/28/17 08:54 08/28/17 08:54 - Plan (1) CAD (coronary artery disease), [place] coronary artery (2) S/P CABG x 2 Plan: ASA, statin , bb OOB ambulate pulm toileting leave chest tube place eval for rehab [place] [facility] (3) Atrial fibrillation Plan: converted to NSR Daily score 3discuss with Dr Young (4) Carotid artery stenosis (5) Chronic kidney disease Plan: stable (1) CAD (coronary artery disease), [place] coronary artery Qualifiers: [place] vs. transplanted heart: [place] heart (3) Atrial fibrillation Qualifiers: Atrial fibrillation type: paroxysmal Qualified Code(s): I48.0 - Paroxysmal atrial fibrillation (4) Carotid artery stenosis Qualifiers: Laterality: bilateral Qualified Code(s): I65.23 - Occlusion and stenosis of bilateral carotid arteries (5) Chronic kidney disease Qualifiers: Chronic kidney disease stage: stage 3 (moderate) Qualified Code(s): N18.3 - Chronic kidney disease, stage 3 (moderate)
[2017-08-28] MEDS: Ketorolac Inj 30 MG/ML (IVP) Vial IV.PUSH PRN (21:18)
[2017-08-28] MEDS: Docusate Sodium 100 MG Capsule PO SCH (21:20)
[2017-08-28] MEDS: Metoprolol Tartrate 25 MG Tablet PO SCH ×2 (21:21→21:48)
[2017-08-29] MEDS: Ketorolac Inj 30 MG/ML (IVP) Vial IV.PUSH PRN ×3 (03:00→20:14)
[2017-08-29] MEDS: Insulin NovoLOG Aspart Correctional Sugar Inj SQ SCH (03:57)
[2017-08-29] MEDS: Docusate Sodium 100 MG Capsule PO SCH ×2 (08:56→20:08)
[2017-08-29] MEDS: Metoprolol Tartrate 25 MG Tablet PO SCH ×2 (08:57→20:09)
[2017-08-29] MEDS: Multivitamin/Minerals Therapeutic Tablet PO SCH (08:57)
--- NOTE | 2017-08-29 11:37 | P.PNCA ---
- Note CVT: Post Op Day #: 4 Subjective/Hospital Course: 67-year-old black male, initially seen 08/12/17 with history of recent abnormal EKG, history of atrial fibrillation, hyperlipidemia, hypertension, presented to Dr. Young's office for a followup visit. Had been complaining of some shortness of breath with walking in the backyard, feeding his dogs with minimal exertion. No chest pain. His EKG apparently showed some Q-waves in the inferior leads. Therefore, he underwent cardiac catheterization today by Dr. Young with normal EF of 60%, left main disease of 70%, mid distal 30%. The circumflex was 80%, the OM 90%. We were consulted to evaluate for coronary artery bypass grafting. PAST MEDICAL HISTORY: Includes a history of atrial fibrillation, coronary artery disease, carotid artery stenosis, chronic kidney disease stage II, hyperlipidemia, hypertension, chronic back pain, peptic ulcer in the past. 08/26 electively admitted for surgery surgery: 1. Off-pump Coronary Artery Bypass Grafting x 2 with Left Internal Mammary Artery (DAWKINS) to Left Anterior Descending (LAD), reverse saphenous vein graft to Obtuse Marginal branch of the Left Circumflex artery, 2. Left leg Endoscopic Vein [place], 3. Left atrial appendage excision, 4. Synchronized cardioversion 3 crystalloid 2500cc, 400cc EBL extubated after surgery , pt has some immediate postop labile BP requiring fluid bolus , and pressors resolved 08/27 weaning off uresing well start low dose BB pt converted to NSR early this am daily score 3 will discuss anticoagulation with Dr Young currently on plavix , ASA will transfer to stepdown 08/28 drained large amount of drainage from chest tube in past 24hrs, now trending down HGB stable, start eliquis when chest tube out remain in NSR 08/29 doing well, no complaints Objective: Vital Signs - 24 hr 08/28/17 12:00 08/28/17 13:00 08/28/17 15:00 Temperature 99 F Pulse Rate 93 H 94 H 83 Respiratory Rate 14 18 Blood Pressure 127/68 Pulse Oximetry 08/28/17 16:00 08/28/17 20:00 08/28/17 21:05 Temperature 99.1 F 99.4 F Pulse Rate 84 109 H 86 Respiratory Rate 16 16 18 Blood Pressure 128/64 128/73 Pulse Oximetry 08/29/17 00:00 08/29/17 01:28 08/29/17 01:50 Temperature 98.9 F Pulse Rate 89 Respiratory Rate 16 16 16 Blood Pressure 146/78 H Pulse Oximetry 96 08/29/17 02:38 08/29/17 04:00 08/29/17 06:26 Temperature 98.9 F Pulse Rate 89 Respiratory Rate 16 16 Blood Pressure 138/70 Pulse Oximetry 96 96 08/29/17 06:33 08/29/17 08:00 08/29/17 08:43 Temperature 98.7 F Pulse Rate 112 H Respiratory Rate 16 16 Blood Pressure Pulse Oximetry 97 94 L Labs: Laboratory Results - last 12 hr 08/26/17 08/29/17 06:35 08:02 POC Glucose 87 MTS Gel Crossmatch See Detail Result Diagrams: 08/28/17 08:54 08/28/17 08:54 Imaging: Chest X-Ray 08/27/17 05:00 CONCLUSION: 1. Patient has been extubated with NG tube removed. 2. Stable left-sided chest tube without significant pneumothorax. 3. Stable left lower lobe airspace disease, likely atelectasis. Cardiovascular: RRR Telemetry: NSR Pulmonary: CTA GI/: NABS Incision: dry and intact CT: 60ml/12hrs - Plan (1) CAD (coronary artery disease), [place] coronary artery (2) S/P CABG x 2 Plan: ASA, statin , bb OOB ambulate pulm toileting leave chest tube place eval [place] rehab [place] (3) Atrial fibrillation Plan: converted to NSR Daily score 3discuss with Dr Young (4) Carotid artery stenosis (5) Chronic kidney disease Plan: stable Remove chest tubes Increase BB dose Encourage ambulation Possible d/c tomorrow (1) CAD (coronary artery disease), [place] coronary artery Qualifiers: [place] vs. transplanted heart: [place] heart (3) Atrial fibrillation Qualifiers: Atrial fibrillation type: paroxysmal Qualified Code(s): I48.0 - Paroxysmal atrial fibrillation (4) Carotid artery stenosis Qualifiers: Laterality: bilateral Qualified Code(s): I65.23 - Occlusion and stenosis of bilateral carotid arteries (5) Chronic kidney disease Qualifiers: Chronic kidney disease stage: stage 3 (moderate) Qualified Code(s): N18.3 - Chronic kidney disease, stage 3 (moderate)
[2017-08-29] MEDS: Polyethylene Glycol 3350 17 GM Packet PO SCH (20:11)
[2017-08-30] MEDS: Insulin NovoLOG Aspart Correctional Sugar Inj SQ SCH ×2 (01:27→22:10)
[2017-08-30] MEDS: Ketorolac Inj 30 MG/ML (IVP) Vial IV.PUSH PRN ×3 (01:45→19:07)
[2017-08-30] MEDS: Multivitamin/Minerals Therapeutic Tablet PO SCH (08:23)
[2017-08-30] MEDS: Docusate Sodium 100 MG Capsule PO SCH ×2 (08:23→22:11)
[2017-08-30] MEDS: Metoprolol Tartrate 25 MG Tablet PO SCH ×2 (08:25→22:10)
--- NOTE | 2017-08-30 11:07 | P.PNCA ---
- Note CVT: Post Op Day #: 4 Subjective/Hospital Course: 67-year-old black male, initially seen 08/12/17 with history of recent abnormal EKG, history of atrial fibrillation, hyperlipidemia, hypertension, presented to Dr. Young's office for a followup visit. Had been complaining of some shortness of breath with walking in the backyard, feeding his dogs with minimal exertion. No chest pain. His EKG apparently showed some Q-waves in the inferior leads. Therefore, he underwent cardiac catheterization today by Dr. Young with normal EF of 60%, left main disease of 70%, mid distal 30%. The circumflex was 80%, the OM 90%. We were consulted to evaluate for coronary artery bypass grafting. PAST MEDICAL HISTORY: Includes a history of atrial fibrillation, coronary artery disease, carotid artery stenosis, chronic kidney disease stage II, hyperlipidemia, hypertension, chronic back pain, peptic ulcer in the past. 08/26 electively admitted for surgery surgery: 1. Off-pump Coronary Artery Bypass Grafting x 2 with Left Internal Mammary Artery (DAWKINS) to Left Anterior Descending (LAD), reverse saphenous vein graft to Obtuse Marginal branch of the Left Circumflex artery, 2. Left leg Endoscopic Vein [place], 3. Left atrial appendage excision, 4. Synchronized cardioversion 3 crystalloid 2500cc, 400cc EBL extubated after surgery , pt has some immediate postop labile BP requiring fluid bolus , and pressors resolved 08/27 weaning off uresing well start low dose BB pt converted to NSR early this am daily score 3 will discuss anticoagulation with Dr Young currently on plavix , ASA will transfer to stepdown 08/28 drained large amount of drainage from chest tube in past 24hrs, now trending down HGB stable, start eliquis when chest tube out remain in NSR 08/29 doing well, no complaints 08/30/17 No complaints, doing well Objective: Vital Signs - 24 hr 08/29/17 12:00 08/29/17 15:00 08/29/17 16:00 Temperature 97.8 F 97.9 F Pulse Rate 90 98 H 97 H Respiratory Rate 16 16 Blood Pressure 129/74 138/78 Pulse Oximetry 97 97 08/29/17 19:00 08/29/17 20:00 08/29/17 20:15 Temperature 100.1 F H Pulse Rate 96 H 106 H Respiratory Rate 16 Blood Pressure 144/74 H Pulse Oximetry 99 97 08/29/17 21:00 08/29/17 22:00 08/29/17 23:00 Temperature Pulse Rate 102 H 90 82 Respiratory Rate Blood Pressure Pulse Oximetry 08/30/17 00:00 08/30/17 00:02 08/30/17 00:13 Temperature 98.8 F Pulse Rate 88 Respiratory Rate 16 16 16 Blood Pressure 130/78 Pulse Oximetry 99 08/30/17 01:00 08/30/17 01:28 08/30/17 02:00 Temperature Pulse Rate 86 92 H Respiratory Rate 16 Blood Pressure Pulse Oximetry 08/30/17 03:00 08/30/17 04:00 08/30/17 04:18 Temperature 98.8 F Pulse Rate 87 90 86 Respiratory Rate 16 Blood Pressure 154/89 H Pulse Oximetry 98 08/30/17 04:50 08/30/17 05:00 08/30/17 05:22 Temperature Pulse Rate 94 H Respiratory Rate 16 16 Blood Pressure Pulse Oximetry 93 L 08/30/17 08:00 08/30/17 09:00 08/30/17 11:00 Temperature 97.5 F L 98.4 F Pulse Rate 90 90 87 Respiratory Rate 16 Blood Pressure 165/84 H 152/79 H Pulse Oximetry 99 99 Result Diagrams: 08/28/17 08:54 08/28/17 08:54 Imaging: Chest X-Ray 08/27/17 05:00 CONCLUSION: 1. Patient has been extubated with NG tube removed. 2. Stable left-sided chest tube without significant pneumothorax. 3. Stable left lower lobe airspace disease, likely atelectasis. Cardiovascular: RRR Telemetry: NSR Pulmonary: CTA GI/: NABS, NT Incision: dry and intact - Plan (1) CAD (coronary artery disease), [place] coronary artery (2) S/P CABG x 2 Plan: ASA, statin , bb OOB ambulate pulm toileting leave chest tube place eval for rehab [place] [facility] (3) Atrial fibrillation Plan: converted to NSR Daily score 3discuss with Dr Young (4) Carotid artery stenosis (5) Chronic kidney disease Plan: stable Patient is doing well and is ready for transfer to [facility] Awaiting a bed at [facility] (1) CAD (coronary artery disease), [place] coronary artery Qualifiers: [place] vs. transplanted heart: [place] heart (3) Atrial fibrillation Qualifiers: Atrial fibrillation type: paroxysmal Qualified Code(s): I48.0 - Paroxysmal atrial fibrillation (4) Carotid artery stenosis Qualifiers: Laterality: bilateral Qualified Code(s): I65.23 - Occlusion and stenosis of bilateral carotid arteries (5) Chronic kidney disease Qualifiers: Chronic kidney disease stage: stage 3 (moderate) Qualified Code(s): N18.3 - Chronic kidney disease, stage 3 (moderate)
[2017-08-31] MEDS: Insulin NovoLOG Aspart Correctional Sugar Inj SQ SCH (08:47)
[2017-08-31] MEDS: Metoprolol Tartrate 25 MG Tablet PO SCH (08:48)
[2017-08-31] MEDS: Multivitamin/Minerals Therapeutic Tablet PO SCH (08:49)
[2017-08-31] MEDS: Polyethylene Glycol 3350 17 GM Packet PO SCH (08:55)
[2017-08-31] MEDS: Docusate Sodium 100 MG Capsule PO SCH (08:56)
--- NOTE | 2017-08-31 13:37 | P.DS ---
Date of admission: 08/26/17 05:08 Primary care physician: Dr Yaya Hendricks Attending physician on discharge: Macey Vargas Anticipated date of discharge: 08/31/17 Brief History from admission: 67-year-old black male, initially seen 08/12/17 with history of recent abnormal EKG, history of atrial fibrillation, hyperlipidemia, hypertension, presented to Dr. Young's office for a followup visit. Had been complaining of some shortness of breath with walking in the backyard, feeding his dogs with minimal exertion. No chest pain. His EKG apparently showed some Q-waves in the inferior leads. Therefore, he underwent cardiac catheterization today by Dr. Young with normal EF of 60%, left main disease of 70%, mid distal 30%. The circumflex was 80%, the OM 90%. We were consulted to evaluate for coronary artery bypass grafting. PAST MEDICAL HISTORY: Includes a history of atrial fibrillation, coronary artery disease, carotid artery stenosis, chronic kidney disease stage II, hyperlipidemia, hypertension, chronic back pain, peptic ulcer in the past. DS: Diagnosis - Discharge Diagnosis (1) CAD (coronary artery disease), [place] coronary artery Status: Acute (2) S/P CABG x 2 Status: Acute (3) Atrial fibrillation Status: Chronic (4) Carotid artery stenosis Status: Chronic (5) Chronic kidney disease Status: Chronic DS: Medications - Discharge Medications Prescriptions: apixaban [Eliquis] 5 mg PO BID #60 tab aspirin 81 mg PO DAILY #30 tab atorvastatin 40 mg PO HS #30 tab docusate sodium [DOK] 100 mg PO BID #60 cap hydrocodone-acetaminophen [[place]] 1 tab PO Q6H PRN #30 tab PRN Reason: Pain metoprolol tartrate 25 mg PO BID #60 tab kxkuxqni-vluz-PK-calcium-mins [Thera M Plus (ferrous fumarat)] 1 tab PO DAILY # 30 tab DS: Summary Hospital Course: 08/26 electively admitted for surgery surgery: 1. Off-pump Coronary Artery Bypass Grafting x 2 with Left Internal Mammary Artery (DAWKINS) to Left Anterior Descending (LAD), reverse saphenous vein graft to Obtuse Marginal branch of the Left Circumflex artery, 2. Left leg Endoscopic Vein [place], 3. Left atrial appendage excision, 4. Synchronized cardioversion 3 crystalloid 2500cc, 400cc EBL extubated after surgery , pt has some immediate postop labile BP requiring fluid bolus , and pressors resolved 08/27 weaning off uresing well start low dose BB pt converted to NSR early this am daily score 3 will discuss anticoagulation with Dr Young currently on plavix , ASA will transfer to stepdown 08/28 drained large amount of drainage from chest tube in past 24hrs, now trending down HGB stable, start eliquis when chest tube out remain in NSR 08/29 doing well, no complaints 08/30/17 No complaints, doing well 08/31 pt doing well, back to preop weight on room air , pain controlled pt stable to dc to rehab [facility] site checked RX for acute pain 7 day exception - Time Spent with Patient Total time spent providing and/or coordinating discharge services: Greater than 30 minutes - Quality: AMI Clinical Trial Participant: No - Quality: VTE Deep Vein Thrombosis/Pulmonary Embolism Present on Admission: No Exam Vital signs: Vital Signs 08/30/17 16:00 08/30/17 17:00 08/30/17 19:00 Temperature 99.6 F Pulse Rate 99 H 107 H 100 H Respiratory Rate 16 Blood Pressure 143/69 H Pulse Oximetry 98 08/30/17 20:00 08/30/17 21:00 08/30/17 22:00 Temperature 98.5 F Pulse Rate 106 H 96 H 94 H Respiratory Rate 19 19 Blood Pressure 136/78 Pulse Oximetry 99 08/30/17 23:00 08/30/17 23:40 08/31/17 00:00 Temperature 98.7 F Pulse Rate 91 H 82 Respiratory Rate 19 18 Blood Pressure 134/82 Pulse Oximetry 99 08/31/17 00:38 08/31/17 01:00 08/31/17 02:00 Temperature Pulse Rate 80 80 Respiratory Rate 18 Blood Pressure Pulse Oximetry 08/31/17 03:00 08/31/17 04:00 08/31/17 04:20 Temperature 98.4 F Pulse Rate 90 92 H Respiratory Rate 20 19 Blood Pressure 145/87 H Pulse Oximetry 98 08/31/17 05:00 08/31/17 06:00 08/31/17 07:00 Temperature 98.8 F Pulse Rate 92 H 95 H 102 H Respiratory Rate 14 Blood Pressure 141/84 H Pulse Oximetry 98 08/31/17 10:00 08/31/17 11:00 Temperature 98.6 F Pulse Rate 87 76 Respiratory Rate 16 Blood Pressure 124/75 Pulse Oximetry 96 Intake & Output 08/30/17 08/31/17 08/31/17 18:59 06:59 18:59 Intake Total 960 / 960 430 / 430 Output Total 1200 / 1200 2074 Balance -240 / -240 -1645 / -1645 Weight 111.7 kg Intake: Oral 960 / 960 430 / 430 Output: Urine 1200 / 1200 2074 Other: Date of Last Bowel Movement 08/29/17 08/30/17 - Constitutional no acute distress - Routine HEENT Exam Head: Present: normocephalic Eye: Present: EOMI, PERRL, normal accommodation - Routine Neck Exam Present: supple, full ROM - Routine Chest/Breast/Axilla Exam Chest wall: Present: tenderness - Routine Respiratory Exam Present: CTA bilaterally - Routine Cardiovascular Exam Present: RRR, S1, S2 - Routine Abdominal Exam Present: soft, normoactive bowel sounds - Routine Extremities Exam Present: full ROM, pulses intact, normal capillary refill - Routine Skin Exam Present: intact, wounds Comments: prevena dressing to chest incision intact to left leg EVH site - Routine Neurological Exam Present: alert, oriented X3, CN II-XII intact - Routine Psychiatric Exam Present: normal affect, normal thought process Results Procedures completed during hospitalization: 08/26 SURGICAL PROCEDURE 1. Off-pump Coronary Artery Bypass Grafting x 2 with Left Internal Mammary Artery (DAWKINS) to Left Anterior Descending (LAD), reverse saphenous vein graft to Obtuse Marginal branch of the Left Circumflex artery 2. Left leg Endoscopic Vein [place] 3. Left atrial appendage excision 4. Synchronized cardioversion 3 5. Intraoperative Vein Mapping. Completed studies during hospitalization: Pending at discharge 08/26/17 13:39 Surgical [PTH] Routine Labs on day of discharge: Labs from last 24 hours 08/31/17 08/30/17 08:15 22:04 POC Glucose 107 99 - Impressions ITS Impressions Chest X-Ray 08/27/17 05:00 CONCLUSION: 1. Patient has been extubated with NG tube removed. 2. Stable left-sided chest tube without significant pneumothorax. 3. Stable left lower lobe airspace disease, likely atelectasis. Discharge Plan - Discharge Disposition Patient Disposition: Discharge to SNF - Discharge Condition Condition: Good - Discharge Order Discharge Orders: Discharge Order (Routine); Ordered 08/31/17 Ordered By: Ana Rosa Nichole - Discharge Details Anticipated Discharge Date: 08/31/17 - Physicians Team Primary Care Provider: Primary Care Kathryn Bo Attending Provider: Macey Vargas Other Providers: Sam Vargas - Rxs /Orders / Referrals /Forms Prescriptions: New apixaban [Eliquis] 5 mg Tablet 5 mg PO BID Qty: 60 RF: 2 aspirin 81 mg Tablet,Chewable 81 mg PO DAILY Qty: 30 RF: 2 atorvastatin 40 mg Tablet 40 mg PO HS Qty: 30 RF: 2 docusate sodium [DOK] 100 mg Capsule 100 mg PO BID Qty: 60 RF: 0 metoprolol tartrate 25 mg Tablet 25 mg PO BID Qty: 60 RF: 2 xbwdjgqi-wbec-TQ-calcium-mins [Thera M Plus (ferrous fumarat)] 9 mg iron-400 mcg Tablet 1 tab PO DAILY Qty: 30 RF: 2 Continue hydrocodone-acetaminophen [[place]] 10-325 mg Tablet 1 tab PO Q6H PRN (Reason: Pain) Qty: 30 RF: 0 lisinopril 20 mg Tablet 20 mg PO DAILY Discontinued aspirin 325 mg Tablet 325 mg PO DAILY Referrals: YAYA HENDRICKS [Other] - See Instructions (APPOINTMENT OCTOBER 09 @ 09:40) Ana Rosa Nichole [ADVANCE RN PRACTITIONER] - See Instructions ( Your appointment has been scheduled for [09/15/17] at [11:00 am] If you cannot make this appointment, please call the office to reschedule ) Ketan Young DO [Physician] - See Instructions ( Your appointment has been scheduled for [10/08/17] at [2:45pm] If you cannot make this appointment, please call the office to reschedule )
== END 2017-08-31 13:08 ==
LOC: HSDI 05:08 → HCVI 12:00 → HCPC 08-28 09:52
PROVIDERS: ADMIT Thoracic Surgery (Cardiothoracic Vascular Surgery); ATTEND Thoracic Surgery (Cardiothoracic Vascular Surgery)
DX: N18.3 Chronic kidney disease, stage 3 (moderate); Z87.891 Personal history of nicotine dependence; Z87.11 Personal history of peptic ulcer disease; I65.23 Occlusion and stenosis of bilateral carotid arteries; E73.9 Lactose intolerance, unspecified; Z79.82 Long term (current) use of aspirin; I12.9 Hypertensive chronic kidney disease with stage 1 through stage 4 chronic kidney disease, or unspecified chronic kidney disease; Z82.49 Family history of ischemic heart disease and other diseases of the circulatory system; I25.10 Atherosclerotic heart disease of native coronary artery without angina pectoris; E78.5 Hyperlipidemia, unspecified; G89.29 Other chronic pain; Z77.22 Contact with and (suspected) exposure to environmental tobacco smoke (acute) (chronic); J98.11 Atelectasis; M54.9 Dorsalgia, unspecified; R09.89 Other specified symptoms and signs involving the circulatory and respiratory systems

== ENCOUNTER 2017-12-23 22:16 | Observation (INO) ==
[2017-12-23 22:26] VITALS: O2SAT 100
--- NOTE | 2017-12-23 22:32 | ED ---
HPI General Chief complaint: Overdose Stated complaint: Emergent Time Seen by Provider: 12/23/17 22:25 History of Present Illness HPI narrative: This is a 67-year-old male with history of coronary artery disease, CABG, hypertension, hyperlipidemia, chronic kidney disease, atrial fibrillation, presents via EMS for evaluation of lightheadedness. He reports that 3 hours prior to arrival after intercourse he was feeling lightheaded. He reports that he checked his blood pressure and it was 150/90 which is higher than it typically is. He reports that he is prescribed lisinopril which he uses 10 mg in the morning and 10 mg in the evening. He reports that he took a total of 50 mg of lisinopril in an effort to control his blood pressure. This made him feel worse and thus paramedics were called. They note that initially his heart rate was in the 170s and he was somewhat hypotensive. He was given 1 L of normal saline. He was noted to be in atrial fibrillation with RVR. He does have a history of atrial fibrillation, is prescribed Eliquis however he quit using Eliquis 1 month ago because he had a "big red spot" on his right leg. According to chart review he is also prescribed metoprolol. Currently is feeling improved. He is denying any chest pain, shortness of breath, palpitations, nausea, vomiting, abdominal pain. The lightheadedness has also resolved. Agricultural Research Engineer is Dr. Young. He reports that he is currently in the process of establishing care with a new primary care physician and he does not know his name at this time. Related Data Home Medications Medication Instructions Recorded Confirmed lisinopril 20 mg PO DAILY 08/26/17 12/23/17 Previous Rx's Medication Instructions Recorded apixaban [Eliquis] 5 mg PO BID #60 tab 08/31/17 aspirin 81 mg PO DAILY #30 tab 08/31/17 atorvastatin 40 mg PO HS #30 tab 08/31/17 docusate sodium [DOK] 100 mg PO BID #60 cap 08/31/17 hydrocodone-acetaminophen [[place]] 1 tab PO Q6H PRN #30 tab 08/31/17 metoprolol tartrate 25 mg PO BID #60 tab 08/31/17 toincggh-znpc-GD-calcium-mins 1 tab PO DAILY #30 tab 08/31/17 [Thera M Plus (ferrous fumarat)] Allergies Allergy/AdvReac Type Severity Reaction Status Date / Time lactose Allergy Severe LACTOSE Verified 12/23/17 22:28 INTOLERANT iodine Allergy Intermediate Swelling Verified 12/23/17 22:28 of Lip/Tongue/Throat shrimp Allergy Intermediate Swelling Verified 12/23/17 22:28 of Lip/Tongue/Throat Review of Systems ROS: all other systems reviewed are negative [facility] Medical History Medical History A-fib (Acute) Hypertension (Acute) Surgical History Surgical History Hx of coronary artery bypass surgery (Acute) Social History Social History Substance History: No History of Abuse Second Hand Smoke Exposure: No Smoking Status: Former smoker How Often Do You Have a Drink Containing Alcohol: 2 to 4 times a month Recent Travel in [facility] within the Last 8 Weeks: No Recent Out of Country Travel within the Last 8 Weeks: No Immunization History Tetanus Immunization: Unsure Exam Narrative Exam Narrative: GENERAL: Pleasant well-developed well-nourished male in no acute distress SKIN: Warm and dry. Anterior sternal surgical scar noted. HEAD: Atraumatic. Normocephalic. EYES: Pupils equal and round. No scleral icterus. No injection or drainage. ENT: No nasal bleeding or discharge. Mucous membranes pink and moist. NECK: Trachea midline. No JVD. CARDIOVASCULAR: Irregular rate and rhythm. No murmur appreciated. RESPIRATORY: No accessory muscle use. Clear to auscultation. Breath sounds equal bilaterally. GASTROINTESTINAL: Abdomen soft, non-tender, nondistended. Hepatic and splenic margins not palpable. MUSCULOSKELETAL: No obvious deformities. No clubbing. No cyanosis. No edema. NEUROLOGICAL: Awake and alert. No obvious cranial nerve deficits. Motor grossly within normal limits. Normal speech. PSYCHIATRIC: Appropriate mood and affect; insight and judgment normal. Course Initial Documented Vital Signs Pulse Rate 132 H 12/23/17 22:19 Respiratory Rate 15 12/23/17 22:19 Blood Pressure 136/86 12/23/17 22:19 Pulse Oximetry 100 12/23/17 22:19 Last Documented Vital Signs Temperature 97.7 F 12/23/17 22:32 Pulse Rate 66 12/24/17 09:23 Respiratory Rate 18 12/24/17 09:23 Blood Pressure 152/81 H 12/24/17 09:23 Pulse Oximetry 100 12/24/17 01:58 Medical Decision Making JOHNATHAN Attestation JOHNATHAN supervised visit: Yes Attestation: I was present with the advanced practitioner during the management of this patient. I discussed the case with the advanced practitioner and agree with the findings and plan as documented in their note except as noted below. 67yM presenting with "lightheadedness". The patient states that he felt lightheaded earlier this evening, checked his BP and noted it to be 150s systolic, was concerned that this was the cause of his symptoms so he took 5 of his lisinopril tablets to try to lower his BP. He called EMS when his symptoms didn't resolve, approximately 2 hours post-ingestion. He was found to be in rapid A fib in the 170s on their arrival with SBP in the 90s, both of which improved with 2L NS. He states that this was not an attempt to harm himself. He was given a dose of cardizem on arrival and his HR is now in the 80s. Will obtain labs and keep for observation to monitor BP in the setting of LANA-I overdose. MDM Narrative Medical decision making narrative: The patient was placed on ECG monitoring pulse oximetry. A 12-lead EKG was obtained revealing atrial fibrillation with a rate of 129, no acute ST elevation. Blood pressure is currently 136/86. Lab work, chest x-ray has been ordered. Patient was given a dose of Cardizem as his blood pressure has normalized. Upon reexamination his rate is controlled. Upon further questioning it appears that the patient has been noncompliant with all his medications over the past several weeks, he does not want to discuss why. His lab work is been reviewed. Total CK is 975. Troponin within normal limits. Chest x-ray reveals no acute abnormalities. At this point time the plan will be to admit the patient for observation in the setting of unintentional LANA inhibitor overdose. Medical Screen Exam Complete: Yes Emergency Medical Condition: Yes Differential Diagnosis Differential Diagnosis: Atrial fibrillation with RVR, inadvertent medication overdose, unstable angina, electrolyte abnormality, hypotension Lab Data Result diagrams: 12/24/17 06:22 12/24/17 06:22 Lab Results 12/23/17 12/23/17 12/23/17 Range/Units 22:35 22:35 22:35 WBC 9.2 (4.0-11.0) th/mm3 RBC 4.64 (4.50-5.90) mil/mm3 Hgb 14.2 (13.0-17.0) gm/dL Hct 42.6 (39.0-51.0) % MCV 91.8 (80.0-100.0) fL MCH 30.7 (27.0-34.0) pg MCHC 33.4 (32.0-36.0) % RDW 14.0 (11.6-17.2) % Plt Count 178 (150-450) th/mm3 MPV 8.5 (7.0-11.0) fL Neut % (Auto) 63.8 (16.0-70.0) % Lymph % (Auto) 25.2 (9.0-44.0) % Chambers % (Auto) 8.5 H (0.0-8.0) % Eos % (Auto) 1.7 (0.0-4.0) % Baso % (Auto) 0.8 (0.0-2.0) % Neut # (Auto) 5.8 (1.8-7.7) th/mm3 Lymph # (Auto) 2.3 (1.0-4.8) th/mm3 Chambers # (Auto) 0.8 (0.0-0.9) th/mm3 Eos # (Auto) 0.2 (0.0-0.4) th/mm3 Baso # (Auto) 0.1 (0.0-0.2) th/mm3 WBC Differential . Differential Comment Auto diff final PT 11.6 (9.8-11.6) sec INR 1.1 Ratio APTT 27.5 (23.4-31.7) sec Sodium 143 (136-145) meq/L Potassium 3.5 (3.5-5.1) meq/L Chloride 111 H (98-107) meq/L Carbon Dioxide 24.6 (21.0-32.0) meq/L Anion Gap 7 (5-15) meq/L BUN 22 H (7-18) mg/dL Creatinine 1.04 (0.60-1.30) mg/dL Estimated GFR 86 L (>89) mL/min Random Glucose 89 (74-106) mg/dL Calcium 7.8 L (8.5-10.1) mg/dL Magnesium 1.8 (1.5-2.5) mg/dL Total Bilirubin 0.5 (0.2-1.0) mg/dL AST 32 (15-37) U/L ALT 24 (12-78) U/L Alkaline Phosphatase 91 (45-117) U/L Total Creatine Kinase 975 H (39-308) U/L CK-MB (CK-2) 14.4 H (0.5-3.6) ng/mL CK-MB (CK-2) % 1.5 (0.0-4.0) % Troponin I 0.05 (0.02-0.05) ng/mL Total Protein 6.7 (6.4-8.2) g/dL Albumin 3.5 (3.4-5.0) g/dL 12/24/17 12/24/17 Range/Units 06:22 06:22 WBC 5.9 (4.0-11.0) th/mm3 RBC 4.49 L (4.50-5.90) mil/mm3 Hgb 14.1 (13.0-17.0) gm/dL Hct 41.1 (39.0-51.0) % MCV 91.5 (80.0-100.0) fL MCH 31.5 (27.0-34.0) pg MCHC 34.4 (32.0-36.0) % RDW 14.1 (11.6-17.2) % Plt Count 170 (150-450) th/mm3 MPV 8.1 (7.0-11.0) fL Neut % (Auto) 56.3 (16.0-70.0) % Lymph % (Auto) 31.9 (9.0-44.0) % Chambers % (Auto) 8.0 (0.0-8.0) % Eos % (Auto) 3.2 (0.0-4.0) % Baso % (Auto) 0.6 (0.0-2.0) % Neut # (Auto) 3.3 (1.8-7.7) th/mm3 Lymph # (Auto) 1.9 (1.0-4.8) th/mm3 Chambers # (Auto) 0.5 (0.0-0.9) th/mm3 Eos # (Auto) 0.2 (0.0-0.4) th/mm3 Baso # (Auto) 0.0 (0.0-0.2) th/mm3 WBC Differential . Differential Comment Auto diff final PT (9.8-11.6) sec INR Ratio APTT (23.4-31.7) sec Sodium 144 (136-145) meq/L Potassium 3.7 (3.5-5.1) meq/L Chloride 109 H (98-107) meq/L Carbon Dioxide 29.4 (21.0-32.0) meq/L Anion Gap 6 (5-15) meq/L BUN 21 H (7-18) mg/dL Creatinine 1.12 (0.60-1.30) mg/dL Estimated GFR 79 L (>89) mL/min Random Glucose 115 H (74-106) mg/dL Calcium 7.9 L (8.5-10.1) mg/dL Magnesium (1.5-2.5) mg/dL Total Bilirubin 0.9 (0.2-1.0) mg/dL AST 23 (15-37) U/L ALT 21 (12-78) U/L Alkaline Phosphatase 86 (45-117) U/L Total Creatine Kinase (39-308) U/L CK-MB (CK-2) (0.5-3.6) ng/mL CK-MB (CK-2) % (0.0-4.0) % Troponin I (0.02-0.05) ng/mL Total Protein 6.1 L D (6.4-8.2) g/dL Albumin 3.0 L (3.4-5.0) g/dL Imaging Data Radiologist's impression: Chest X-Ray 12/23/17 22:28 CONCLUSION: No acute cardiopulmonary disease. Discharge Plan Discharge Disposition Patient Disposition: 30 Still Patient Discharge Condition Condition: Stable Discharge Order Discharge Orders: AMA Discharge (Routine); Ordered 12/24/17 Ordered By: Elizabeth Leon Discharge Details Diagnosis: Accidental drug overdose, Atrial fibrillation, Elevated CK Physicians Team ED Provider: Marquita Zarco ED Midlevel Provider: Julio Vizcarra Primary Care Provider: Primary Care Kathryn Bo Attending Provider: Elizabeth Leon Other Providers: [employer] Status ED Status: Admitted Observation Patient
[2017-12-23 22:34] VITALS: TEMP 97.7
--- NOTE | 2017-12-23 22:49 | XR ---
EXAM DATE: 12/23/2017 10:47 PM EST AGE/SEX: 67 years / Male INDICATIONS: Shortness of breath. CLINICAL DATA: This is the patient's initial encounter. Patient reports that signs and symptoms have been present for 1 day and indicates a pain score of 8/10. MEDICAL/SURGICAL HISTORY: . Hypercholesterolemia. Hypertension. DE. Afib. Pulmonary embolism. C ABG. Inguinal hernia. Appendectomy. . CABG. Inguinal hernia. Appendectomy. COMPARISON: [facility], CHEST 1V SINGLE AP, 08/27/2017. . FINDINGS: A single AP view of the chest demonstrates the lungs to be symmetrically aerated without evidence of mass, infiltrate or effusion. The cardiomediastinal contours are unremarkable. Osseous structures a re intact. The patient is status post median sternotomy. There are overlying electrocardiogram leads . CONCLUSION: No acute cardiopulmonary disease. Electronically signed by: Bharat Guzmán MD 12/23/2017 10:48 PM EST
[2017-12-23 22:51] LABS: Baso # (Auto) 0.1 th/mm3 (0.0-0.2); Baso % (Auto) 0.8 % (0.0-2.0); Eos # (Auto) 0.2 th/mm3 (0.0-0.4); Eos % (Auto) 1.7 % (0.0-4.0); Hematocrit 42.6 % (39.0-51.0); Hemoglobin 14.2 gm/dL (13.0-17.0); Lymph # (Auto) 2.3 th/mm3 (1.0-4.8); Lymph % (Auto) 25.2 % (9.0-44.0); Mean Corpuscular HGB Conc 33.4 % (32.0-36.0); Mean Corpuscular Hemoglobin 30.7 pg (27.0-34.0); Mean Corpuscular Volume 91.8 fL (80.0-100.0); Mean Platelet Volume 8.5 fL (7.0-11.0); Mono # (Auto) 0.8 th/mm3 (0.0-0.9); Mono % (Auto) 8.5 % (0.0-8.0); Neut # (Auto) 5.8 th/mm3 (1.8-7.7); Neut % (Auto) 63.8 % (16.0-70.0); Platelet Count 178 th/mm3 (150-450); Red Blood Count 4.64 mil/mm3 (4.50-5.90); White Blood Count 9.2 th/mm3 (4.0-11.0)
[2017-12-23 23:12] LABS: Alanine Aminotransferase 24 U/L (12-78); Albumin 3.5 g/dL (3.4-5.0); Anion Gap 7 meq/L (5-15); Aspartate Aminotransferase 32 U/L (15-37); Blood Urea Nitrogen 22 mg/dL (7-18); Calcium 7.8 mg/dL (8.5-10.1); Carbon Dioxide 24.6 meq/L (21.0-32.0); Chloride 111 meq/L (98-107); Glomerular Filtration Rate 86 mL/min (>89); Glucose,Random 89 mg/dL (74-106); Magnesium 1.8 mg/dL (1.5-2.5); Potassium 3.5 meq/L (3.5-5.1); Sodium 143 meq/L (136-145)
[2017-12-23] MEDS ORDERED: Acetaminophen 325 MG Tablet PO ONE (23:14)
[2017-12-23 23:26] LABS: Alkaline Phosphatase 91 U/L (45-117); Creatine Kinase 975 U/L (39-308); Total Protein 6.7 g/dL (6.4-8.2); Troponin I 0.05 ng/mL (0.02-0.05)
[2017-12-23 23:33] LABS: Activated Partial Thrombo Time 27.5 sec (23.4-31.7); INR 1.1 Ratio; Prothrombin Time 11.6 sec (9.8-11.6)
[2017-12-23 23:39] LABS: CKMB Percent 1.5 % (0.0-4.0); Creatine Kinase MB 14.4 ng/mL (0.5-3.6)
[2017-12-23] MEDS ORDERED: Sod Chloride 0.9% Inj 1,000 ML IV.CONT SCH (23:45)
[2017-12-23] MEDS ORDERED: Bisacodyl 10 MG Supp RECTAL PRN (23:50)
[2017-12-24 07:05] LABS: Baso % (Auto) 0.6 % (0.0-2.0); Eos # (Auto) 0.2 th/mm3 (0.0-0.4); Eos % (Auto) 3.2 % (0.0-4.0); Hematocrit 41.1 % (39.0-51.0); Hemoglobin 14.1 gm/dL (13.0-17.0); Lymph # (Auto) 1.9 th/mm3 (1.0-4.8); Lymph % (Auto) 31.9 % (9.0-44.0); Mean Corpuscular HGB Conc 34.4 % (32.0-36.0); Mean Corpuscular Hemoglobin 31.5 pg (27.0-34.0); Mean Corpuscular Volume 91.5 fL (80.0-100.0); Mean Platelet Volume 8.1 fL (7.0-11.0); Mono # (Auto) 0.5 th/mm3 (0.0-0.9); Neut # (Auto) 3.3 th/mm3 (1.8-7.7); Neut % (Auto) 56.3 % (16.0-70.0); Platelet Count 170 th/mm3 (150-450); Red Blood Count 4.49 mil/mm3 (4.50-5.90); Red Cell Distribution Width 14.1 % (11.6-17.2); White Blood Count 5.9 th/mm3 (4.0-11.0)
[2017-12-24 07:27] LABS: Alanine Aminotransferase 21 U/L (12-78); Anion Gap 6 meq/L (5-15); Aspartate Aminotransferase 23 U/L (15-37); Blood Urea Nitrogen 21 mg/dL (7-18); Calcium 7.9 mg/dL (8.5-10.1); Carbon Dioxide 29.4 meq/L (21.0-32.0); Chloride 109 meq/L (98-107); Glomerular Filtration Rate 79 mL/min (>89); Glucose,Random 115 mg/dL (74-106); Potassium 3.7 meq/L (3.5-5.1); Sodium 144 meq/L (136-145)
[2017-12-24 07:29] LABS: Alkaline Phosphatase 86 U/L (45-117); Total Protein 6.1 g/dL (6.4-8.2)
[2017-12-24] MEDS ORDERED: Metoprolol Tartrate 25 MG Tablet PO SCH (09:00)
[2017-12-24 09:25] VITALS: BP 152/81; PULSE 66; RESP 18
--- NOTE | 2017-12-24 10:07 | ECG ---
Date Performed: 12/23/2017 Time Performed: 22:23:14 PTAGE: 67 years EKG: ATRIAL FIBRILLATION WITH RAPID VENTRICULAR RESPONSE NONSPECIFIC ST & T-WAVE ABNORMALITY ABN ORMAL RHYTHM ECG Since the PREVIOUS TRACING , no significant change noted PREVIOUS TRACIN08/27/2017 03.26 DOCTOR: Theo Connell Interpretating Date/Time 12/24/2017 10:06:31
--- NOTE | 2017-12-24 10:09 | P.PNADD ---
Addendum to Inpatient Note Reason for Addendum: Additional Documentation (Unfortunately I was notified the patient left the hospital AMA.)
== END 2017-12-24 09:30 | disposition left against medical advice (07) ==
LOC: NEPE 22:16 → NEDA 22:16 → NEDH 12-24 02:10
PROVIDERS: ADMIT Family Medicine; ATTEND Family Medicine